=== PATIENT | male | born 1980 | race Caucasian/White ===

== ENCOUNTER 2018-03-03 16:29 | Inpatient (IN) ==
--- NOTE | 2018-03-03 17:40 | P.HP ---
History of Present Illness Service: [facility] Primary Care Physician: UNKNOWN Chief Complaint: Left thigh pain History of Present Illness: Patient is 37-year-old male with no significant past medical history except for chronic feet pain occasionally getting steroid shots who presented to the ER complaining of about 2 weeks on and off pain on the lateral aspect of the left thigh. Denies any direct trauma. Patient continues to go to the gym and do his exercises. Yesterday increasing pain and marked inability to bear weight. CBC was done as an outpatient with a white count of 16,000. Also felt feverish. He went to the [facility] where imaging study shows edema and possible hemorrhage extending from the thigh down to the fascia. Patient was transferred here for further evaluation. This a.m. was noted to have temperature of 101.9. Patient denies any trauma. Denies any easy bruising denies any bleeding tendencies. Patient took ibuprofen as needed for pain Patient admitted for further evaluation and management. With consult orthopedic service. Estimated Total Length of Stay (Days): 3 Plans for Post Hospital Care: Not yet determined Review of Systems Prior to this patient is healthy no headaches no bleeding tendencies no melena no hematochezia no urinary symptoms very active lifestyle. [facility] - History History Provided By: Patient (Patient quit smoking 5 years ago) - Medical History Medical History: Medical History (Last Reviewed 03/08/18 @ 17:58 by CATARINA Aguila) Hematoma of left thigh Hx of back injury - Surgical History Surgical History: Surgical History (Last Reviewed 03/08/18 @ 17:58 by CATARINA Aguila) History of vocal cord polypectomy - Family History Family History: Family History (Last Updated 03/08/18 @ 17:58 by CATARINA Aguila) Other Family history reviewed with no changes - Tobacco History Second Hand Smoke Exposure: No Smoking Status: Former smoker Tobacco Type: Cigarettes - Alcohol History How Often Do You Have a Drink Containing Alcohol: Never - Substance Use History Substance History: No History of Abuse Medications and Allergies Allergies Allergy/AdvReac Type Severity Reaction Status Date / Time adhesive tape Allergy Rash Verified 03/03/18 16:11 Exam Vital signs: Intake & Output 03/02/18 03/03/18 03/03/18 18:59 06:59 18:59 Weight 83.915 kg Other: Weight On Admission 83.915 kg Narrative: Awake alert oriented 3 not in distress Anicteric sclerae pink palpebral conjunctiva Moist oral mucosa Neck supple no nuchal rigidity Chest lungs bilateral breath sounds equal no rales Regular rhythm Abdomen is soft nontender with good bowel sounds Extremities.. Left up left lower extremity swelling of the thigh most marked in the lateral aspect of the thigh with surrounding stress erythema warm to touch erythema extending to the knee area- with some swelling - . Positive pain on touch and tender , range of motion limited by pain No lymphadenopathy Results - Labs CBC & Chem 7: 03/05/18 06:02 03/05/18 06:02 Caprini VTE Risk Assessment Caprin VTE Risk Assessment: No/Low Risk (score <= 1) VTE Pharmacological Exception Reason: Hemorrhage (hematoma- thigh) Caprini Risk Assessment Model: Point Value = 1 Point Value = 2 Point Value = 3 Point Value = 5 Age 41-60 Minor surgery BMI > 25 kg/m2 Swollen legs Varicose veins or History of unexplained or recurrent spontaneous Oral contraceptives or hormone replacement Sepsis (< 1 month) Serious lung disease, including pneumonia (< 1 month) Abnormal pulmonary function Acute myocardial infarction Congestive heart failure (< 1 month) History of inflammatory bowel disease Medical patient at bed rest Age 61-74 Arthroscopic surgery Major open surgery (> 45 min) Laparoscopic surgery (> 45 min) Malignancy Confined to bed (> 72 hours) Immobilizing plaster cast Central venous access Age >= 75 History of VTE Family history of VTE Factor V Leiden Prothrombin [id number] Lupus anticoagulant Anticardiolipin antibodies Elevated serum homocysteine Heparin-induced thrombocytopenia Other congenital or acquired thrombophilia Stroke (< 1 month) Elective arthroplasty Hip, pelvis, or leg fracture Acute spinal cord injury (< 1 month) Prophylaxis Regimen: Total Risk Factor Score Risk Level Prophylaxis Regimen 0-1 Low Early ambulation 2 Moderate Order ONE of the following: *Sequential Compression Device (SCD) *Heparin 5000 units SQ BID 3-4 Higher Order ONE of the following medications: *Heparin 5000 units SQ TID *Enoxaparin/Lovenox 40 mg SQ daily (WT < 150 kg, CrCl > 30 mL/min) *Enoxaparin/Lovenox 30 mg SQ daily (WT < 150 kg, CrCl > 10-29 mL/min) *Enoxaparin/Lovenox 30 mg SQ BID (WT < 150 kg, CrCl > 30 mL/min) AND/OR *Sequential Compression Device (SCD) 5 or more Highest Order ONE of the following medications: *Heparin 5000 units SQ TID (Preferred with Epidurals) *Enoxaparin/Lovenox 40 mg SQ daily (WT < 150 kg, CrCl > 30 mL/min) *Enoxaparin/Lovenox 30 mg SQ daily (WT < 150 kg, CrCl > 10-29 mL/min) *Enoxaparin/Lovenox 30 mg SQ BID (WT < 150 kg, CrCl > 30 mL/min) AND *Sequential Compression Device (SCD) Assessment and Plan - Plan 37-year-old male with no significant past medical history presenting with Left thigh cellulitis with possible infected spontaneous hematoma/hemorrhage into the thigh fascia Leukocytosis- 16,000 -Blood cultures drawn - follow CBC. Orthopedic surgery consulted and will be taking him to surgery this afternoon for exploration/I and D - Send any drainage for fluid studies = recheck CBC in a.m. -Start IV antibiotics post surgery- depending on OR findings
--- NOTE | 2018-03-03 18:56 | P.CONOP ---
[facility] Orthopedics Consult Note - [facility] Consult date: 03/03/18 Chief complaint: Cellulitis, infected hematoma, left thigh Narrative: Patient is 37-year-old male with no significant past medical history who presented to the ER complaining of about 2 weeks on and off pain on the lateral aspect of the left thigh. Patient continues to go to the gym and do his exercises. Yesterday increasing pain and marked difficulty with weightbearing due to pain. CBC was done as an outpatient with a white count of 16,000. Upon presentation, patient had fever of 101.9. Reports subjective fevers at home as well. He reports approximately 1-2 weeks ago he did have a small injury to his left thigh while working out. He thought he had a small muscle strain and has continued to work through it until yesterday when he noticed increasing pain, erythema and difficulty with ambulation. He denies any chills, nausea or vomiting. He denies any illicit drug use. Review of Systems Reports fevers, extremity/thigh pain with swelling and redness. Denies change in vision, throat pain, cough, chest or abdominal pain, change in urination, back pain, numbness or tingling, weakness, rash, anxiety. [facility] - History History Provided By: Patient (Patient quit smoking 5 years ago) - Medical History Medical History: Medical History (Last Reviewed 03/03/18 @ 16:11 by Magda Landaverde) Hx of back injury - Surgical History Surgical History: Surgical History (Last Reviewed 03/03/18 @ 16:11 by Magda Landaverde) History of vocal cord polypectomy - Tobacco History Second Hand Smoke Exposure: No Smoking Status: Former smoker Tobacco Type: Cigarettes - Alcohol History How Often Do You Have a Drink Containing Alcohol: Never - Substance Use History Substance History: No History of Abuse Medications and Allergies Allergies Allergy/AdvReac Type Severity Reaction Status Date / Time adhesive tape Allergy Rash Verified 03/03/18 16:11 Home Medications Medication Instructions Recorded Confirmed Type No Known Home Medications 03/03/18 03/03/18 History Exam Vital signs: Intake & Output 03/02/18 03/03/18 03/03/18 18:59 06:59 18:59 Weight 83.915 kg Other: Weight On Admission 83.915 kg Narrative: Awake, alert, no acute distress Normocephalic Pupils equal No JVD Moist mucous membranes Soft nontender abdomen Nonlabored respirations Regular rate Left lower extremity: Mild to moderate edema of her mid to distal thigh laterally. There is marked erythema around this area. There are no draining wounds or gross signs of abscess. There is significant tenderness about this area. Very slight edema and erythema about the knee. Trace effusion. No significant swelling or pain about the proximal thigh and hip region. Patient demonstrates full passive range of motion at the knee with lateral thigh pain although minimal knee pain. Patient appears neurovascularly intact distally with positive EHL, FHL, dorsiflexion and plantar flexion. Dorsalis pedis pulses palpable. Bilateral upper extremities and right lower extremity: No tenderness to palpation or visible deformities. No gross signs of infection. Full active range of motion and strength throughout. Sensation intact. Brisk cap refill. No rash Normal affect Results - Diagnostic results Imaging: CT left thigh: Fluid collection just deep to the iliotibial band most prominently at the mid to distal aspect of the thigh, suspicious for hematoma possible infection. Assessment and Plan - Assessment and Plan 37-year-old gentleman with left thigh infected hematoma Options of management were discussed with the patient. I did discuss the option of nonoperative management including close observation with IV antibiotics. I did also discuss the option of operative intervention in the form of irrigation and debridement left thigh. Risks, benefits, alternatives were discussed with the patient. Risks of surgery including but not limited to : Persistent infection, persistent thigh pain and/or swelling, possible need for further surgery, fibrosis, neurovascular injury, and other unforeseen complications were all discussed with the patient. At this time he would like to pursue surgical intervention. He has been n.p.o. since earlier this morning. Plan will be for surgery this evening.
[2018-03-03] MEDS ORDERED: Lidocaine PF 1% Inj 5 ML Syringe OTHER ONE (20:00)
[2018-03-03] MEDS ORDERED: Glycopyrrolate Inj 1 MG/5 ML Syringe IV.PUSH ONE (20:00)
[2018-03-03] MEDS ORDERED: Neostigmine Inj 5 MG/5 ML Syringe IV.PUSH ONE (20:00)
[2018-03-03] MEDS ORDERED: Post-op Orders (for Pharmacy) OTHER STA (20:57)
--- NOTE | 2018-03-03 20:57 | P.BOP ---
Date of procedure: 03/03/18 Procedure: Irrigation with excisional debridement left thigh Implants: none Anesthesia: GETA Surgeon: Antonella Perez MD Estimated blood loss (mL): 100 Pathology: other (culture and pathology) Condition: stable Disposition: PACU
[2018-03-03] MEDS ORDERED: Vancomycin Consult Pharmacy 1 EACH OTHER SCH (21:00)
[2018-03-03] MEDS ORDERED: Vancomycin Inj 1,000 MG in Sodium Chlor 0.9% Inj 250 ML IV.SIG SCH (21:00)
[2018-03-03] MEDS ORDERED: *Meperidine Inj 25 MG/ML Vial PERIprocedural Use ONLY ONE (21:19)
[2018-03-03] MEDS ORDERED: Morphine Inj 4 MG/ML Vial ONE (21:26)
[2018-03-03] MEDS ORDERED: fentaNYL Citrate Inj 100 MCG/2 ML Ampul ONE (21:26)
[2018-03-03] MEDS ORDERED: *morphine SULFATE 10 MG/ML PERIprocedure ONLY ONE (21:33)
[2018-03-03] MEDS: Morphine Sulfate Inj 2 MG/ML Vial IV.PUSH PRN (22:49)
[2018-03-03] MEDS: Vancomycin Inj 1,500 MG in Sodium Chlor 0.9% Inj 500 ML IV.SIG SCH (23:22)
[2018-03-04] MEDS: Morphine Sulfate Inj 2 MG/ML Vial IV.PUSH PRN ×3 (03:35→12:44)
[2018-03-04 06:08] LABS: Baso % (Auto) 0.1 % (0.0-2.0); Hematocrit 42.5 % (39.0-51.0); Hemoglobin 14.1 gm/dL (13.0-17.0); Lymph # (Auto) 0.5 th/mm3 (1.0-4.8); Lymph % (Auto) 4.1 % (9.0-44.0); Mean Corpuscular HGB Conc 33.1 % (32.0-36.0); Mean Corpuscular Hemoglobin 31.2 pg (27.0-34.0); Mean Corpuscular Volume 94.3 fL (80.0-100.0); Mean Platelet Volume 8.4 fL (7.0-11.0); Mono # (Auto) 0.6 th/mm3 (0.0-0.9); Mono % (Auto) 4.6 % (0.0-8.0); Neut % (Auto) 91.2 % (16.0-70.0); Platelet Count 252 th/mm3 (150-450); Red Blood Count 4.51 mil/mm3 (4.50-5.90); Red Cell Distribution Width 13.5 % (11.6-17.2); White Blood Count 13.1 th/mm3 (4.0-11.0)
[2018-03-04] MEDS: Vancomycin Inj 1,500 MG in Sodium Chlor 0.9% Inj 500 ML IV.SIG SCH ×2 (09:01→21:00)
--- NOTE | 2018-03-04 10:30 | P.PNIM ---
Subjective Interval history: Mr. aRmires was afebrile with stable VS overnight. Patient reports that he is doing at this time. He has significant L thigh pain which is worse with movement. Patient reports some right foot numbness but thinks it was due to inactivity. No chest pain, shortness of breath, abnormal urination, or abnormal bowel movements. Addendum- patient re-evaluated this afternoon; patient's foot numbness resolved with activity; he reports improvement with pain medications. Physical Exam Vital signs: Vital Signs 03/03/18 19:15 03/03/18 21:15 03/03/18 21:30 Temperature 99.1 F 98.4 F Pulse Rate 82 108 H 91 H Respiratory Rate 18 20 14 Blood Pressure 166/76 H 165/89 H 140/72 Pulse Oximetry 99 94 L 98 03/03/18 22:23 03/03/18 22:25 03/04/18 00:00 Temperature 98.0 F 98.4 F 98.6 F Pulse Rate 91 H 81 71 Respiratory Rate 20 10 L 16 Blood Pressure 132/67 130/61 113/64 Pulse Oximetry 96 94 L 96 03/04/18 04:00 03/04/18 07:53 03/04/18 08:00 Temperature 98 F 98 F Pulse Rate 63 67 Respiratory Rate 16 16 20 Blood Pressure 106/59 L 130/60 Pulse Oximetry 99 100 Intake & Output 03/03/18 03/04/18 03/04/18 18:59 06:59 18:59 Intake Total 2675 / 2675 Output Total 1370 / 1370 800 / 800 Balance 1305 / 1305 -800 / -800 Weight 83.915 kg Intake: IV 615 / 615 Ofirmev Inj 1,000 mg In 100 ml 100 / 100 @ 0 mls/hr IV.SIG .[facility] Rx#:[id number] Vancomycin Inj 1,500 MG In NS 515 / 515 Inj 500 ML @ 250 mls/hr IV.SIG Q12H [facility] Rx#:[id number] Oral 1560 / 1560 Anesthesia Amount 500 / 500 Output: Urine 1300 / 1300 800 / 800 Estimated Blood Loss 50 / 50 Wound Drainage 20 / 20 Left Thigh BENITA Drain 20 / 20 Other: Weight On Admission 83.915 kg Narrative: Gen: No acute distress Skin: No visible lesions; L thigh wrapped. Wound drainage container with serosanguineous fluid HEENT: Normal sclera; EOM grossly I. MMM Chest: CTAB; normal rate. Grossly normal perfusion Resp: CTAB; normal rate Abdomen: Soft, nontender. Normal BS Neuro: Grossly normal CN. Grossly normal peripheral motor/sensory function Extremities: Grossly normal motor function; ROM of LLE not fully assessed due to pain. L thigh wrapped; ~20 ml serosanguineous fluid in drainage container. range of motion limited by pain Results - Labs CBC & Chem 7: 03/04/18 05:03 03/04/18 05:03 Laboratory Results - last 24 hr 03/04/18 03/04/18 05:03 05:03 WBC 13.1 H RBC 4.51 Hgb 14.1 Hct 42.5 MCV 94.3 D MCH 31.2 MCHC 33.1 RDW 13.5 Plt Count 252 MPV 8.4 Neut % (Auto) 91.2 H Lymph % (Auto) 4.1 L [place] % (Auto) 4.6 Eos % (Auto) 0.0 Baso % (Auto) 0.1 Neut # (Auto) 12.0 H Lymph # (Auto) 0.5 L [place] # (Auto) 0.6 Eos # (Auto) 0.0 Baso # (Auto) 0.0 WBC Differential . Differential Comment Auto diff final Creatinine 1.20 Estimated GFR 69 L Microbiology 03/03/18 20:29 Wound - Leg Fungal Smear - Final No fungal elements seen 03/03/18 20:29 Wound - Leg Gram Stain - Final Assessment and Plan - Assessment (1) Hematoma Code(s): T14.8XXA - Other injury of unspecified body region, initial encounter Status: Acute (2) Fever Code(s): R50.9 - Fever, unspecified Status: Acute (3) Leukocytosis Code(s): D72.829 - Elevated white blood cell count, unspecified Status: Acute - Plan Mr. Ramires is a 37-year-old male with no significant past medical history with: L thigh infectious hematoma Impression: POD 1 I&D of L thigh hematoma. Recent leukocytosis and fever -Wound culture/ GS- pending Labs: WBC 18 03/02-> 13.1 03/04 -Orthopedic surgery consulted -I&D of L thigh performed 03/03; drainage vac in place -Continue IV vancomycin -Monitor cultures -Weight bearing as tolerated; ROM as tolerated DVT PPX -Bilateral SCD's Code Status: Full code Discharge Planning: Pending Orthopedic surgery recommendations
[2018-03-04] MEDS: oxyCODONE/Acetaminophen 10/325 Tablet PO PRN ×3 (11:17→23:18)
[2018-03-04] MEDS: Morphine Inj 4 MG/ML Vial IV.PUSH PRN ×3 (15:16→20:59)
--- NOTE | 2018-03-04 16:29 | P.OP ---
Date of procedure: 03/03/18 Procedure: Irrigation and excisional debridement left thigh infected seroma Implants: none Anesthesia: GETA Surgeon: Antonella Perez MD Estimated blood loss (mL): 100 Pathology: other (cultures and pathology) Operation and Findings: Indications for procedure: 37-year-old gentleman with small left thigh muscle injury approximately 1-2 weeks ago with mild thigh pain and swelling. Over the last couple of days, patient noticed increasing pain, difficulty with ambulation , increasing erythema, and new onset fevers. Patient presented to the emergency department with a temperature of 101.9, elevated WBC, and CT with fluid collection in the left thigh deep to the IT band. Options of management including continued nonoperative management with IV antibiotics and observation versus operative intervention in form of irrigation and debridement were discussed with the patient. At this time he wished to proceed with surgical intervention. Description of procedure: Patient was brought back to the operating room placed supine on the operating room table with all bony processes well padded. General anesthesia then ensued. A timeout was performed to verify the correct patient, site, side and procedure to be performed. Preoperative antibiotics were held in order to obtain intraoperative cultures. An approximately 5 inch incision was then made over the lateral aspect of the mid to distal thigh with sharp dissection through the skin and subcutaneous tissue. The IT band was then incised in a longitudinal fashion and immediately straw-colored fluid was expressed. This was cultured. Deep to the IT band, there appeared to be significant amount of seroma-like fluid along with clearly defined encapsulated tissue. This capsular tissue was sent to pathology. This was excisionally debrided with scalpel, rongeurs and curettes. The tissue at this time appeared healthy without any clear signs of infection. All muscle appeared viable. There was no gross purulence identified signs of hematoma. A BENITA drain was placed deep and the IT band closed with running PDS suture. The subcutaneous tissue was then closed with PDS sutures and the skin closed with nylon. Sterile dressings were then applied. Patient was awoken from general anesthesia without complication. Disposition: Patient can be weightbearing as tolerated and range of motion as tolerated to the left lower extremity. I will follow cultures and pathology.
[2018-03-04] MEDS: Senna/Docusate Sodium 8.6/50 MG Tablet PO SCH (20:59)
[2018-03-05] MEDS: Morphine Inj 4 MG/ML Vial IV.PUSH PRN ×4 (01:03→12:22)
[2018-03-05 06:30] LABS: Baso % (Auto) 0.4 % (0.0-2.0); Eos # (Auto) 0.2 th/mm3 (0.0-0.4); Eos % (Auto) 2.5 % (0.0-4.0); Hematocrit 40.7 % (39.0-51.0); Hemoglobin 13.8 gm/dL (13.0-17.0); Lymph # (Auto) 1.4 th/mm3 (1.0-4.8); Lymph % (Auto) 15.3 % (9.0-44.0); Mean Corpuscular HGB Conc 33.9 % (32.0-36.0); Mean Corpuscular Hemoglobin 31.8 pg (27.0-34.0); Mean Corpuscular Volume 93.8 fL (80.0-100.0); Mean Platelet Volume 8.1 fL (7.0-11.0); Mono # (Auto) 0.9 th/mm3 (0.0-0.9); Mono % (Auto) 10.1 % (0.0-8.0); Neut # (Auto) 6.5 th/mm3 (1.8-7.7); Neut % (Auto) 71.7 % (16.0-70.0); Platelet Count 243 th/mm3 (150-450); Red Blood Count 4.34 mil/mm3 (4.50-5.90); Red Cell Distribution Width 13.4 % (11.6-17.2); White Blood Count 9.1 th/mm3 (4.0-11.0)
[2018-03-05] MEDS: oxyCODONE/Acetaminophen 10/325 Tablet PO PRN ×2 (06:36→12:25)
[2018-03-05 06:53] LABS: Calcium 8.2 mg/dL (8.5-10.1); Carbon Dioxide 31.3 meq/L (21.0-32.0); Potassium 3.9 meq/L (3.5-5.1)
[2018-03-05] MEDS: Senna/Docusate Sodium 8.6/50 MG Tablet PO SCH (08:09)
--- NOTE | 2018-03-05 09:35 | P.PNOP ---
Subjective Interval history: Patient reports his pain is relatively well controlled. He does still have some discomfort with ambulation although is mobilizing with a walker. Physical Exam Vital signs: Vital Signs 03/04/18 11:35 03/04/18 12:00 03/04/18 12:44 Temperature 98.1 F Pulse Rate 66 Respiratory Rate 16 20 16 Blood Pressure 137/70 Pulse Oximetry 98 03/04/18 15:26 03/04/18 16:00 03/04/18 17:28 Temperature 98.6 F Pulse Rate 71 Respiratory Rate 17 20 16 Blood Pressure 138/69 Pulse Oximetry 98 03/04/18 18:07 03/04/18 20:00 03/05/18 00:00 Temperature 98.3 F 98.1 F Pulse Rate 69 60 Respiratory Rate 16 18 18 Blood Pressure 115/64 115/69 Pulse Oximetry 97 100 03/05/18 04:00 03/05/18 07:56 03/05/18 07:57 Temperature 97.9 F Pulse Rate 52 L Respiratory Rate 18 16 16 Blood Pressure 119/70 Pulse Oximetry 99 03/05/18 08:00 Temperature 98 F Pulse Rate 61 Respiratory Rate 20 Blood Pressure 132/83 Pulse Oximetry 99 Intake & Output 03/04/18 03/05/18 03/05/18 18:59 06:59 18:59 Intake Total 515 / 515 1475 / 1475 Output Total 890 / 890 775 / 775 Balance -375 / -375 700 / 700 Intake: IV 515 / 515 515 / 515 Vancomycin Inj 1,500 MG In NS 515 / 515 515 / 515 Inj 500 ML @ 250 mls/hr IV.SIG Q12H [facility] Rx#:[id number] Oral 960 / 960 Output: Urine 880 / 880 750 / 750 Wound Drainage Left Thigh BENITA Drain Other: # Voids 3 Narrative: Awake, alert, no acute distress Ambulating with walker to bathroom currently. Left lower extremity: Dressing in place over thigh. Drain has been removed. Patient is neurovascularly intact distally. Erythema appears significantly improved. Negative Homans. Brisk cap refill Results - Labs CBC & Chem 7: 03/05/18 06:02 03/05/18 06:02 Laboratory Results - last 24 hr 03/05/18 03/05/18 06:02 06:02 WBC 9.1 RBC 4.34 L Hgb 13.8 Hct 40.7 MCV 93.8 MCH 31.8 MCHC 33.9 RDW 13.4 Plt Count 243 MPV 8.1 Neut % (Auto) 71.7 H Lymph % (Auto) 15.3 [place] % (Auto) 10.1 H Eos % (Auto) 2.5 Baso % (Auto) 0.4 Neut # (Auto) 6.5 Lymph # (Auto) 1.4 [place] # (Auto) 0.9 Eos # (Auto) 0.2 Baso # (Auto) 0.0 WBC Differential . Differential Comment Auto diff final Sodium 140 Potassium 3.9 Chloride 105 Carbon Dioxide 31.3 Anion Gap 4 L BUN 17 Creatinine 1.24 Estimated GFR 66 L Random Glucose 105 Calcium 8.2 L Microbiology 03/03/18 20:29 Wound - Leg Gram Stain - Final 03/03/18 20:29 Wound - Leg Wound Culture - Preliminary No growth. 03/03/18 20:29 Wound - Leg Fungal Smear - Final No fungal elements seen Assessment and Plan - Assessment and Plan 37-year-old male, POD#2 s/p I&D L thigh 1. Weightbearing as tolerated and range of motion as tolerated left thigh 2. Drain can be removed and dressing change today. Xeroform, 4 x 4's and Dexter wrap to be reapplied dressing can be changed on a daily basis as needed. 3. Intraoperative cultures remained negative. Will continue to follow. Patient can be discharged on 10 days of oral antibiotics at this time 4. Patient can follow up in my office in 2 weeks.
[2018-03-05] MEDS ORDERED: Pharmacy Ordered Lab Info OTHER ONE (09:45)
[2018-03-05] MEDS: Vancomycin Inj 1,500 MG in Sodium Chlor 0.9% Inj 500 ML IV.SIG SCH (10:00)
[2018-03-05 10:09] VITALS: RESP 16
--- NOTE | 2018-03-05 12:46 | P.PNIM ---
Subjective Interval history: Mr. Ramires was afebrile with stable VS overnight. 20ml serosanguineous drainage overnight. Patient reports that he has continued pain in his left thigh. He otherwise has been doing well without fevers, chest pain, shortness of breath, or abnormal urination/BM. Patient has some concerns about his work/standing so requests work note. Drain removed this morning by nursing staff. Patient agreeable to discharge home with walker and follow-up with Dr. Perez in 2 weeks after 10 days antibiotics. Physical Exam Vital signs: Vital Signs 03/04/18 15:26 03/04/18 16:00 03/04/18 17:28 Temperature 98.6 F Pulse Rate 71 Respiratory Rate 17 20 16 Blood Pressure 138/69 Pulse Oximetry 98 03/04/18 18:07 03/04/18 20:00 03/05/18 00:00 Temperature 98.3 F 98.1 F Pulse Rate 69 60 Respiratory Rate 16 18 18 Blood Pressure 115/64 115/69 Pulse Oximetry 97 100 03/05/18 04:00 03/05/18 07:56 03/05/18 07:57 Temperature 97.9 F Pulse Rate 52 L Respiratory Rate 18 16 16 Blood Pressure 119/70 Pulse Oximetry 99 03/05/18 08:00 03/05/18 10:09 03/05/18 12:26 Temperature 98 F Pulse Rate 61 Respiratory Rate 20 16 16 Blood Pressure 132/83 Pulse Oximetry 99 Intake & Output 03/04/18 03/05/18 03/05/18 18:59 06:59 18:59 Intake Total 515 / 515 1475 / 1475 515 / 515 Output Total 890 / 890 775 / 775 Balance -375 / -375 700 / 700 495 / 495 Intake: IV 515 / 515 515 / 515 515 / 515 Vancomycin Inj 1,500 MG In NS 515 / 515 515 / 515 515 / 515 Inj 500 ML @ 250 mls/hr IV.SIG Q12H [facility] Rx#:[id number] Oral 960 / 960 Output: Urine 880 / 880 750 / 750 Wound Drainage Left Thigh BENITA Drain Other: # Voids 3 Narrative: Gen: No acute distress Skin: No visible lesions; L thigh wrapped. HEENT: Normal sclera; EOM grossly I. MMM Chest: CTAB; normal rate. Grossly normal perfusion Resp: CTAB; normal rate Abdomen: Soft, nontender. Normal BS Neuro: Grossly normal CN. Grossly normal peripheral motor/sensory function in bilateral distal lower extremities Extremities: Grossly normal motor function; L thigh wrapped. seen ambulating; range of motion limited by pain. No calf pain/asymmetry Results - Labs CBC & Chem 7: 03/05/18 06:02 03/05/18 06:02 Laboratory Results - last 24 hr 03/05/18 03/05/18 03/05/18 06:02 06:02 09:50 WBC 9.1 RBC 4.34 L Hgb 13.8 Hct 40.7 MCV 93.8 MCH 31.8 MCHC 33.9 RDW 13.4 Plt Count 243 MPV 8.1 Neut % (Auto) 71.7 H Lymph % (Auto) 15.3 [place] % (Auto) 10.1 H Eos % (Auto) 2.5 Baso % (Auto) 0.4 Neut # (Auto) 6.5 Lymph # (Auto) 1.4 [place] # (Auto) 0.9 Eos # (Auto) 0.2 Baso # (Auto) 0.0 WBC Differential . Differential Comment Auto diff final Sodium 140 Potassium 3.9 Chloride 105 Carbon Dioxide 31.3 Anion Gap 4 L BUN 17 Creatinine 1.24 Estimated GFR 66 L Random Glucose 105 Calcium 8.2 L Vancomycin Trough 5.2 Microbiology 03/03/18 20:29 Wound - Leg Gram Stain - Final 03/03/18 20:29 Wound - Leg Wound Culture - Preliminary No growth in 48 hours 03/03/18 20:29 Wound - Leg Fungal Smear - Final No fungal elements seen Assessment and Plan - Assessment (1) Hematoma Code(s): T14.8XXA - Other injury of unspecified body region, initial encounter Status: Acute (2) Fever Code(s): R50.9 - Fever, unspecified Status: Acute (3) Leukocytosis Code(s): D72.829 - Elevated white blood cell count, unspecified Status: Acute - Plan Mr. Ramires is a 37-year-old male with no significant past medical history with: L thigh seroma Impression: POD 2 I&D of L thigh encapsulated seroma; Recent leukocytosis and fever suggested infectious etiology but surgery revealed likely subacute noninfectious process -Wound culture/ GS- pending; negative to date Labs: WBC 18 03/02-> 13.1 03/04 -> 9.1 today -Orthopedic surgery consulted -I&D of L thigh performed 03/03 -drainage vac removed today -Will plan for discharge on oral Keflex x10 days; infectious etiology less likely -ROM and weight bearing astolerated; use wheeled walker -Xeroform, 4 x 4's and Dexter wrap - daily changes as needed -f/u with Dr. Perez in 2 weeks -Percocet, Motrin PRN for pain control DVT PPX -Bilateral SCD's Discharge Planning: Discharge home today; f/u with Dr. Perez in 2 weeks
[2018-03-05 13:23] VITALS: BP 146/79; PULSE 66; TEMP 98.2; O2SAT 98
[2018-03-05] MEDS ORDERED: Vancomycin Inj 1,750 MG in Sodium Chlor 0.9% Inj 500 ML IV.SIG SCH (22:00)
[2018-03-07] MEDS ORDERED: Pharmacy Ordered Lab Info OTHER ONE (09:45)
--- NOTE | 2018-03-09 23:56 | P.DS ---
Date of admission: 03/04/18 13:52 Primary care physician: UNKNOWN Brief History from admission: Patient is 37-year-old male with no significant past medical history except for chronic feet pain occasionally getting steroid shots who presented to the ER complaining of about 2 weeks on and off pain on the lateral aspect of the left thigh. Denies any direct trauma. Patient continues to go to the gym and do his exercises. Yesterday increasing pain and marked inability to bear weight. CBC was done as an outpatient with a white count of 16,000. Also felt feverish. [facility] where imaging study shows edema and possible hemorrhage extending from the thigh down to the fascia. Patient was transferred here for further evaluation. This a.m. was noted to have temperature of 101.9. Patient denies any trauma. Denies any easy bruising denies any bleeding tendencies. Patient took ibuprofen as needed for pain Patient admitted for further evaluation and management. With consult orthopedic service. Patient update on day of discharge: Mr. Ramires was afebrile with stable VS overnight. 20ml serosanguineous drainage overnight. Patient reports that he has continued pain in his left thigh. He otherwise has been doing well without fevers, chest pain, shortness of breath, or abnormal urination/BM. Patient has some concerns about his work/standing so requests work note. Drain removed this morning by nursing staff. Patient agreeable to discharge home with walker and follow-up with Dr. Perez in 2 weeks after 10 days antibiotics. DS: Diagnosis - Discharge Diagnosis (1) Hematoma Status: Acute (2) Fever Status: Acute (3) Leukocytosis Status: Acute DS: Medications - Discharge Medications Prescriptions: cephalexin [Keflex] 500 mg PO TID 10 Days #30 cap oxycodone-acetaminophen 1 tab PO Q6H PRN #12 tab PRN Reason: Acute Pain DS: Summary Hospital Course: Mr. Ramires is 37-year-old male with no significant past medical history w/ prior use of steroid injections presented to [facility] complaining of 2 weeks of intermittent L thigh pain. Recent T 101.9F. Patient had outpatient CBC showing WBC >15K; CT imaging 03/02 showed suspected subacute hemorrhage down lateral L thigh along inner aspect of tensor fascia paco with subcutaneous edema. Within the lateral thigh there is some fluid attenuation; presumably hemorrhage and multiple locules of fat; underlying mass cannot be excluded. Patient underwent I&D of lateral thigh 03/03 by Orthopedic surgery; cultures/ gram stain obtained. Patient subsequently had improved leukocytosis. Patient underwent PT and wound dressing care while hospitalized. Drain removed 03/05 and patient was discharged with Orthopedic surgery and plan to f/u with Ortho in 2 weeks. 03/08- Received notification of acid fast bacilli in leg culture; patient contacted to return to ED for further treatment - Time Spent with Patient Total time spent providing and/or coordinating discharge services: Less than 30 minutes - Quality: VTE Deep Vein Thrombosis/Pulmonary Embolism Present on Admission: No Exam Vital signs: Initial Documented Vital Signs Temperature 99.1 F 03/03/18 19:15 Pulse Rate 82 03/03/18 19:15 Respiratory Rate 18 03/03/18 19:15 Blood Pressure 166/76 H 03/03/18 19:15 Pulse Oximetry 99 03/03/18 19:15 Last Documented Vital Signs Temperature 98.2 F 03/05/18 12:00 Pulse Rate 66 03/05/18 12:00 Respiratory Rate 16 03/05/18 13:34 Blood Pressure 146/79 H 03/05/18 12:00 Pulse Oximetry 98 03/05/18 12:00 Narrative: Gen: No acute distress Skin: No visible lesions; L thigh wrapped. HEENT: Normal sclera; EOM grossly I. MMM Chest: CTAB; normal rate. Grossly normal perfusion Resp: CTAB; normal rate Abdomen: Soft, nontender. Normal BS Neuro: Grossly normal CN. Grossly normal peripheral motor/sensory function in bilateral distal lower extremities Extremities: Grossly normal motor function; L thigh wrapped. seen ambulating; range of motion limited by pain. No calf pain/asymmetry Results Procedures completed during hospitalization: 03/03 - I& D of L thigh Completed studies during hospitalization: Pending at discharge 03/03/18 07:33 Surgical [PTH] Routine Labs on day of discharge: Preliminary micro results at discharge 03/03/18 20:29 Wound Culture - Preliminary Wound - Leg Acid Fast Organism Discharge Plan - Discharge Disposition Patient Disposition: 01 Discharge Home - Discharge Condition Condition: Stable - Discharge Order Discharge Orders: Discharge Order (Routine); Ordered 03/05/18 Ordered By: Blake Mendes - Discharge Details Anticipated Discharge Date: 03/05/18 Discharge Comment: Wound care supplies if possible (Xeroform, 4x4, YULIA) - Physicians Team Primary Care Provider: UNKNOWN, Attending Provider: Blake Mendes - Rxs /Orders / Referrals /Forms Prescriptions: New cephalexin [Keflex] 250 mg Capsule 500 mg PO TID 10 Days Qty: 30 RF: 0 oxycodone-acetaminophen 10-325 mg Tablet 1 tab PO Q6H PRN (Reason: Acute Pain) Qty: 12 RF: 0 Ambulatory Orders / Order Sets / DME: Walker With Front Wheels (1 each) (Routine) Location: Determined by Patient Ordered By: Blake Mendes Referrals: Antonella Perez MD [Physician] - See Instructions (Please follow-up with Dr. Perez in 2 weeks CALL 'S OFFICE & BEING THAT PATIENT HAS [facility] [employer] INSURANCE. PATIENT NEEDS AUTHORIZATION FIRST FROM [place] TO BE SEEN AT 'S OFFICE) UNKNOWN, [Primary Care Provider] - See Instructions (CALL [place] [facility] FOR APPT WITH PCP) Forms: Work Release/Restrictions - Discharge Instructions Patient Printed Instructions: Cephalexin (By mouth), Oxycodone/Acetaminophen ( By mouth), Acute Wound Care (DC), Incision and Drainage (DC)
== END 2018-03-05 14:22 | disposition home or self-care (01) ==
LOC: HOR 16:29 → HSDI 16:29 → N05 22:17
PROVIDERS: ADMIT Family Medicine; ATTEND Family Medicine

== ENCOUNTER 2018-03-08 11:48 | Inpatient (IN) ==
--- NOTE | 2018-03-08 12:32 | ED ---
HPI General Chief Complaint: Recheck/Abnormal Lab/Rx Stated Complaint: Doctor sent medical Time Seen by Provider: 03/08/18 12:10 Source: patient and old records reviewed Mode of arrival: ambulatory Limitations: no limitations History of Present Illness HPI narrative: 37-year-old male presents to the emergency department for evaluation of left thigh wound. Patient was called by Dr. Mendes today wand was instructed to return due to the wound growing acid-fast organism, final report. The patient was seen on March 02 and discharged and returned on March 03 with fevers. He was admitted at that time. He had a CT scan of the femur which showed in patient with history of trauma to thigh there is a presumed subacute hemorrhage extending down the entire lateral left thigh along the inner aspect of the tensor fascia paco with additional subcutaneous edema. Within the lateral thigh musculature there is some fluid attenuation, presumably hemorrhage and multiple locules of fat. Etiology of locules of fat is unclear. Cannot exclude an underlying mass. Imaging follow-up recommended started with left thigh pain working out. Patient had the area opened up by orthopedic surgeon, Dr. Perez. He was discharged on Keflex on March 05, 2018. He states that his leg is still swollen, but overall the erythema has slightly decreased. He still reports significant pain to the left thigh. He denies taking other medications other than Keflex and oxycodone for pain. He reports chills. Moderate severity. complaint: wound re-check Initial visit (ago): week(s) Initial visit for: cellulitis and other (hematoma) Returns today for: wound recheck and called because of abnormal lab/test Description of abnormal result: Patient was called due to wound culture growing acid-fast organism Symptoms since prior visit: improved Context: called for abnormal lab result Associated symptoms: chills Treatments prior to arrival: given antibiotics on and given pain meds on Related Data Previous Rx's Medication Instructions Recorded cephalexin [Keflex] 500 mg PO TID 10 Days #30 cap 03/05/18 oxycodone-acetaminophen 1 tab PO Q6H PRN #12 tab 03/05/18 Allergies Allergy/AdvReac Type Severity Reaction Status Date / Time adhesive tape Allergy Rash Verified 03/03/18 16:11 Review of Systems ROS: all other systems reviewed are negative PMFSH Social History Social History Substance History: No History of Abuse Second Hand Smoke Exposure: No Smoking Status: Former smoker Tobacco Type: Cigarettes How Often Do You Have a Drink Containing Alcohol: Monthly or less Recent Travel in [place] within the Last 8 Weeks: No Recent Out of Country Travel within the Last 8 Weeks: No Immunization History Tetanus Immunization: Unsure Hx Influenza Vaccine This Season: No Exam Narrative Exam Narrative: GENERAL: Well-nourished, well-developed male patient, afebrile. SKIN: Focused skin assessment warm/dry. Patient has swelling and erythema to left thigh with approximately 5 inch incision with sutures intact without drainage. HEAD: Normocephalic. Atraumatic. EYES: No scleral icterus. No injection or drainage. NECK: Supple, trachea midline. No JVD or lymphadenopathy. CARDIOVASCULAR: Regular rate and rhythm without murmurs, gallops, or rubs. Left pedal pulse is 2+ RESPIRATORY: Breath sounds equal bilaterally. No accessory muscle use. Lung sounds are clear to auscultation GASTROINTESTINAL: Abdomen soft, non-tender, nondistended. MUSCULOSKELETAL: No cyanosis. BACK: No obvious deformity. Course Initial Documented Vital Signs Temperature 97.8 F 03/08/18 11:56 Pulse Rate 92 H 03/08/18 11:56 Respiratory Rate 14 03/08/18 11:56 Blood Pressure 154/77 H 03/08/18 11:56 Pulse Oximetry 100 03/08/18 11:56 Last Documented Vital Signs Temperature 97.8 F 03/08/18 11:56 Pulse Rate 92 H 03/08/18 11:56 Respiratory Rate 14 03/08/18 11:56 Blood Pressure 154/77 H 03/08/18 11:56 Pulse Oximetry 100 03/08/18 11:56 Medical Decision Making [place] Narrative Medical decision making narrative: 37-year-old male presents to the emergency department for evaluation of left thigh wound, instructed to call back due to the wound culture showing acid-fast organism. IV access obtained. CBC, CMP, lactic acid ordered and pending. After labs are back, infectious disease will be consulted. CBC shows WBC of 9.8. CMP shows no acute abnormality. Lactic acid is 1.5. I spoke to Dr. Peña, infectious disease. He recommends MRI with and without contrast. I will then call him back with these results. I spoke to the patient further who states that he did inject his left thigh with dexamethasone approximately 2 weeks, right before the symptoms started. He states that he gets it on line and after he does a race if he is sore, he will inject his muscle. He did this right before his symptoms started. I will relay this to Dr. Peña when I speak to him with the MRI results. MRI shows There is a large enhancing edematous collection within the vastus lateralis muscle with very impressive surrounding soft tissue edema. There is also an elongated fluid collection deep to the fascia in the peripheral aspect of the mass, presumed abscess. What is unusual are areas of macroscopic fat within the collection, can be seen in patients with a resolving hematoma or possibly a hemorrhagic hemangioma. Similar to the recent CT scan. I spoke to Dr. Sandoval, orthopedist, who states he was only there for antibiotic management and she would not want to drain it again. I then spoke to Dr. Peña, infectious disease, and states that it does need to be drained as they need a new sample of fluid. He does not want to the patient to be started on IV antibiotics until the new sample is drawn. Hospitalist is paged for admission. Dr. Abebe accepted admission. Medical Screen Exam Complete: Yes Emergency Medical Condition: Yes Differential Diagnosis Differential Diagnosis: cellulitis vs. abscess vs. sepsis vs. wound recheck Medical Records Medical records reviewed: Yes I reviewed the patient's medical records. Lab Data Result diagrams: 03/08/18 12:38 03/08/18 12:38 Lab Results 03/08/18 03/08/18 03/08/18 Range/Units 12:38 12:38 12:38 WBC 9.8 (4.0-11.0) th/mm3 RBC 4.65 (4.50-5.90) mil/mm3 Hgb 14.8 (13.0-17.0) gm/dL Hct 43.3 (39.0-51.0) % MCV 93.0 (80.0-100.0) fL MCH 31.8 (27.0-34.0) pg MCHC 34.1 (32.0-36.0) % RDW 13.4 (11.6-17.2) % Plt Count 360 D (150-450) th/mm3 MPV 7.8 (7.0-11.0) fL Prelim Diff (Auto) Slide review pending Neut % (Auto) 75.9 H (16.0-70.0) % Lymph % (Auto) 12.3 (9.0-44.0) % [place] % (Auto) 7.4 (0.0-8.0) % Eos % (Auto) 3.7 (0.0-4.0) % Baso % (Auto) 0.7 (0.0-2.0) % Neut # (Auto) 7.4 (1.8-7.7) th/mm3 Lymph # (Auto) 1.2 (1.0-4.8) th/mm3 [place] # (Auto) 0.7 (0.0-0.9) th/mm3 Eos # (Auto) 0.4 (0.0-0.4) th/mm3 Baso # (Auto) 0.1 (0.0-0.2) th/mm3 WBC Differential Manual diff final Seg Neuts % (Manual) 84 H (16-70) % Lymphocytes % (Manual) 7 L (9-44) % Monocytes % (Manual) 6 (0-8) % Eosinophils % (Manual) 2 (0-4) % Metamyelocytes % (Man) 1 (0-1) % Abs Neuts (Manual) 8.3 H (1.8-7.7) th/mm3 Differential Comment . Platelet Estimate Normal (Normal) Platelet Morphology Normal (Normal) Sodium 137 (136-145) meq/L Potassium 4.1 (3.5-5.1) meq/L Chloride 102 (98-107) meq/L Carbon Dioxide 29.1 (21.0-32.0) meq/L Anion Gap 6 (5-15) meq/L BUN 19 H (7-18) mg/dL Creatinine 1.13 (0.60-1.30) mg/dL Estimated GFR 74 L (>89) mL/min Random Glucose 91 (74-106) mg/dL Lactic Acid 1.5 (0.4-2.0) mmol/L Calcium 8.7 (8.5-10.1) mg/dL Total Bilirubin 0.4 (0.2-1.0) mg/dL AST 29 (15-37) U/L ALT 30 (12-78) U/L Alkaline Phosphatase 56 (45-117) U/L Total Protein 7.4 (6.4-8.2) g/dL Albumin 3.0 L (3.4-5.0) g/dL Imaging Data Radiologist's impression: Femur MRI 03/08/18 14:00 CONCLUSION: 1. There is a large enhancing edematous collection within the vastus lateralis muscle with very impressive surrounding soft tissue edema. There is also an elongated fluid collection deep to the fascia in the peripheral aspect of the mass, presumed abscess. What is unusual are areas of macroscopic fat within the collection, can be seen in patients with a resolving hematoma or possibly a hemorrhagic hemangioma. Similar to the recent CT scan. Discharge Plan Discharge Disposition Patient Disposition: 30 Still Patient Discharge Details Diagnosis: Abscess of left thigh, Cellulitis Physicians Team ED Provider: [facility] ED Midlevel Provider: Shelby Child Primary Care Provider: UNKNOWN, Rxs /Orders / Referrals /Forms Prescriptions: No Action oxycodone-acetaminophen 10-325 mg Tablet 1 tab PO Q6H PRN (Reason: Acute Pain) Qty: 12 RF: 0 cephalexin [Keflex] 250 mg Capsule 500 mg PO TID 10 Days Qty: 30 RF: 0 Status ED Status: Admitted Patient
[2018-03-08] MEDS ORDERED: Ibuprofen 600 MG Tablet PO ONE (12:51)
[2018-03-08 13:08] LABS: Baso # (Auto) 0.1 th/mm3 (0.0-0.2); Baso % (Auto) 0.7 % (0.0-2.0); Eos # (Auto) 0.4 th/mm3 (0.0-0.4); Eos % (Auto) 3.7 % (0.0-4.0); Hematocrit 43.3 % (39.0-51.0); Hemoglobin 14.8 gm/dL (13.0-17.0); Lymph # (Auto) 1.2 th/mm3 (1.0-4.8); Lymph % (Auto) 12.3 % (9.0-44.0); Mean Corpuscular HGB Conc 34.1 % (32.0-36.0); Mean Corpuscular Hemoglobin 31.8 pg (27.0-34.0); Mean Platelet Volume 7.8 fL (7.0-11.0); Mono # (Auto) 0.7 th/mm3 (0.0-0.9); Mono % (Auto) 7.4 % (0.0-8.0); Neut # (Auto) 7.4 th/mm3 (1.8-7.7); Neut % (Auto) 75.9 % (16.0-70.0); Platelet Count 360 th/mm3 (150-450); Red Blood Count 4.65 mil/mm3 (4.50-5.90); Red Cell Distribution Width 13.4 % (11.6-17.2); White Blood Count 9.8 th/mm3 (4.0-11.0)
[2018-03-08 13:30] LABS: Alanine Aminotransferase 30 U/L (12-78)
[2018-03-08 13:32] LABS: Alkaline Phosphatase 56 U/L (45-117); Total Protein 7.4 g/dL (6.4-8.2)
[2018-03-08 13:38] LABS: Anion Gap 6 meq/L (5-15); Aspartate Aminotransferase 29 U/L (15-37); Blood Urea Nitrogen 19 mg/dL (7-18); Calcium 8.7 mg/dL (8.5-10.1); Carbon Dioxide 29.1 meq/L (21.0-32.0); Chloride 102 meq/L (98-107); Glomerular Filtration Rate 74 mL/min (>89); Glucose,Random 91 mg/dL (74-106); Sodium 137 meq/L (136-145)
[2018-03-08 13:40] LABS: Potassium 4.1 meq/L (3.5-5.1)
[2018-03-08 13:57] LABS: Eosinophils 2 % (0-4); Lymphocytes 7 % (9-44); Metamyelocytes 1 % (0-1); Monocytes 6 % (0-8); Platelet Estimate Normal (Normal); Platelet Morphology Normal (Normal)
[2018-03-08] MEDS ORDERED: Gadobutrol PF 10 MMOL/10 ML Vial (for RAD) IV.SIG ONE (15:41)
--- NOTE | 2018-03-08 16:02 | MR ---
EXAM DATE: 03/08/2018 3:48 PM EDT AGE/SEX: 37 years / Male INDICATIONS: Thigh abscess mass CLINICAL DATA: This is the patient's initial encounter. Patient reports that signs and symptoms have been present for 3 days and indicates a pain score of 4/10. MEDICAL/SURGICAL HISTORY: None. . I&D left thigh. COMPARISON: [facility], CT FEMUR LEFT W CONTRAST, 03/02/2018. . TECHNIQUE: Multiplanar, multisequence MRI examination was performed without and with ml Gadavist (ga dobutrol) contrast as single exam dose. FINDINGS: MRI of the left thigh again demonstrates a elongated mass primarily in the vastus lateralis muscle. I ts a mixture of edema areas of lower signal and clearly some areas of macroscopic fat. Uncertain whet her an artifact related to a intramuscular hematoma. The edematous muscle measures 9.8 x 4.2 cm acros s. It extends over 23 cm in height. Superficial to the muscular edema is a fluid collection measuring 4.8 x 1.0 cm across extending from the 23 cm in height. I believe the fluid is deep to the muscular fascia Contrast episode some nodular areas of enhancement in the central aspect of the vastus lateralis. The re is peripheral enhancement around the fluid collection. Fluid collection begins just posterior to t he incision and parts are cephalad to the incision. The edema and enhancement does extend into the fascia between the vastus intermedius and vastus later julio muscles. A 5 mm segment of the fascia may be involved. CONCLUSION: 1. There is a large enhancing edematous collection within the vastus lateralis muscle with very impr essive surrounding soft tissue edema. There is also an elongated fluid collection deep to the fascia in the peripheral aspect of the mass, presumed abscess. What is unusual are areas of macroscopic fat within the collection, can be seen in patients with a resolving hematoma or possibly a hemorrhagic h emangioma. Similar to the recent CT scan. Electronically signed by: Duke Cortez MD 03/08/2018 4:01 PM EDT
[2018-03-08] MEDS ORDERED: Acetaminophen 325 MG Tablet PO PRN (17:44)
[2018-03-08] MEDS ORDERED: oxyCODONE/Acetaminophen 10/325 Tablet PO PRN (17:51)
--- NOTE | 2018-03-08 18:05 | P.HP ---
History of Present Illness Service: [facility] Primary Care Physician: UNKNOWN Chief Complaint: Abnormal labs, Left thigh pain, chills History of Present Illness: This is a 37-year-old male who is generally in good health, history of chronic feet pain. Patient presents to the emergency room for abnormal labs. Patient indicates that approximately 2 weeks ago he suffered an injury to his left thigh after he did a "squat and sprint". Because of continued pain, he injected dexamethasone on the left side which he had done before. On 03/02/2018 he started to develop fever and was seen in the emergency room and discharged. He returned back on the with recurrent fevers and at that time had a CT of the femur which showed presumed subacute hemorrhage extending down the entire lateral left thigh along the inner aspect of the tensor fascia paco with additional subcutaneous and edema. Patient was admitted and seen by Dr. Perez who performed I&D of left thigh infected seroma on March 04, 2018. Cultures were obtained and patient was put on antibiotics. He was discharged on Keflex on 03/05/2018, cultures have not shown no growth at that time. Today patient was called by Dr. Mendes and inform that the wound was growing acid- fast organism. Patient presented back to the emergency room. Patient indicates that he has had chills and sweats mainly at night, he has not checked his temperature. He feels that the pain has worsened and has continued to take Percocet. The swelling has not changed much, there is some mild erythema to the top of the thigh which has unchanged. He feels that the leg is more painful especially with standing and feels hot to touch. He has been able to go back to work. Denies any other symptoms, no chest pain, shortness of breath , no diarrhea, no vomiting. Has had some mild nausea. Patient was evaluated in the emergency room, WBC 9.8. CMP unremarkable. Lactic acid 1.5. MRI of the left leg was done showing a large enhancing edematous collection within the vastus lateralis muscle with very impressive surrounding soft tissue edema. There is also an elongated fluid collection deep to the fascia in the peripheral aspect of the mass, presumed abscess. What is unusual or areas of microscopic fat within the collection, can be seen in patients with a resolving hematoma or possibly a hemorrhagic hemangioma. Similar to the recent CT scan. Dr. Peña was contacted, recommended MRI and no antibiotics for now. Dr. Perez also contacted, no plans for surgical intervention at this time. Patient is admitted for further evaluation and treatment. - Diagnosis (1) Acid fast bacillus (2) Abscess of left thigh Inpatient Certification: I certify that the inpatient services were ordered in accordance with Medicare regulations governing the order. This includes certification that hospital inpatient services are reasonable and necessary and in the case of services not specified as inpatient-only under 42 CFR 419.22(n), that they are appropriately provided as inpatient services in accordance to with the 2-midnight benchmark under 43 CFR 412.3(e) Estimated Total Length of Stay (Days): 2 Plans for Post Hospital Care: Not yet determined Review of Systems All other systems reviewed negative except as stated in HPI PMFSH - History History Provided By: Patient - Medical History Medical History: Medical History (Last Reviewed 03/08/18 @ 17:58 by CATARINA Aguila) Hematoma of left thigh Hx of back injury - Surgical History Surgical History: Surgical History (Last Reviewed 03/08/18 @ 17:58 by CATARINA Aguila) History of vocal cord polypectomy - Family History Family History: Family History (Last Updated 03/08/18 @ 17:58 by CATARINA Aguila) Other Family history reviewed with no changes - Social History I have reviewed the patient's Social History: Yes - Tobacco History Second Hand Smoke Exposure: No Smoking Status: Former smoker Tobacco Type: Cigarettes - Alcohol History How Often Do You Have a Drink Containing Alcohol: Monthly or less - Substance Use History Substance History: No History of Abuse - Travel History Recent Travel in the [place] Within the Last 8 Weeks: No Recent Travel Out of the Country Within the Last 8 Weeks: No - Immunization History Tetanus Immunization: Unsure Hx Influenza Vaccine This Season: No Medications and Allergies Active Medications: Active Medications Acetaminophen (Tylenol) 650 mg PO Q4H PRN PRN Reason: Temp > 100.4 Al Hydroxide/Mg Hydroxide (Milk Of Magnesia Liq) 30 ml PO Q12H PRN PRN Reason: Mild Constipation Bisacodyl (Dulcolax Supp) 10 mg RECTAL DAILY PRN PRN Reason: SEVERE CONSITIPATION Lactulose (Lactulose Liq) 30 ml PO DAILY PRN PRN Reason: SEVERE CONSITIPATION Ondansetron HCl (Zofran Inj) 4 mg IV.PUSH Q6H PRN PRN Reason: NAUSEA OR VOMITING Oxycodone/Acetaminophen (Percocet 10/325 Mg) 1 tab PO Q6H PRN PRN Reason: Acute Pain Sennosides (Senokot) 17.2 mg PO Q12H PRN PRN Reason: Moderate Constipation Allergies Allergy/AdvReac Type Severity Reaction Status Date / Time adhesive tape Allergy Rash Verified 03/03/18 16:11 Exam Vital signs: Vital Signs 03/08/18 11:56 Temperature 97.8 F Pulse Rate 92 H Respiratory Rate 14 Blood Pressure 154/77 H Pulse Oximetry 100 Intake & Output 03/07/18 03/08/18 03/08/18 18:59 06:59 18:59 Weight 86.183 kg Narrative: GENERAL: Well-nourished, well-developed patient in no apparent distress. SKIN: Warm and dry. HEAD: Atraumatic. Normocephalic. EYES: Pupils equal and round. No scleral icterus. No injection or drainage. ENT: No nasal bleeding or discharge. Mucous membranes pink and moist. NECK: Trachea midline. No JVD. CARDIOVASCULAR: Regular rate and rhythm. No murmurs, no rubs, no gallops. RESPIRATORY: No accessory muscle use. Clear to auscultation. Breath sounds equal bilaterally. GASTROINTESTINAL: Abdomen soft, non-tender, nondistended. Hepatic and splenic margins not palpable. MUSCULOSKELETAL: Left thigh noted larger than right. There is a surgical incision to the lateral aspect, no drainage. There is mild erythema to the upper thigh. There is no areas of fluctuance. Skin feels warmer than right leg. Bilateral pedal pulses 2+. NEUROLOGICAL: Awake and alert and oriented 3. No obvious cranial nerve deficits. Motor grossly within normal limits. Five out of 5 muscle strength in the arms and legs. Normal speech. PSYCHIATRIC: Appropriate mood and affect; insight and judgment normal. Results - Labs CBC & Chem 7: 03/08/18 12:38 03/08/18 12:38 Labs: Laboratory Results - last 24 hr 03/08/18 03/08/18 03/08/18 12:38 12:38 12:38 WBC 9.8 RBC 4.65 Hgb 14.8 Hct 43.3 MCV 93.0 MCH 31.8 MCHC 34.1 RDW 13.4 Plt Count 360 D MPV 7.8 Prelim Diff (Auto) Slide review pending Neut % (Auto) 75.9 H Lymph % (Auto) 12.3 [place] % (Auto) 7.4 Eos % (Auto) 3.7 Baso % (Auto) 0.7 Neut # (Auto) 7.4 Lymph # (Auto) 1.2 [place] # (Auto) 0.7 Eos # (Auto) 0.4 Baso # (Auto) 0.1 WBC Differential Manual diff final Seg Neuts % (Manual) 84 H Lymphocytes % (Manual) 7 L Monocytes % (Manual) 6 Eosinophils % (Manual) 2 Metamyelocytes % (Man) 1 Abs Neuts (Manual) 8.3 H Differential Comment . Platelet Estimate Normal Platelet Morphology Normal Sodium 137 Potassium 4.1 Chloride 102 Carbon Dioxide 29.1 Anion Gap 6 BUN 19 H Creatinine 1.13 Estimated GFR 74 L Random Glucose 91 Lactic Acid 1.5 Calcium 8.7 Total Bilirubin 0.4 AST 29 ALT 30 Alkaline Phosphatase 56 Total Protein 7.4 Albumin 3.0 L - Imaging Impressions Femur MRI 03/08/18 14:00 CONCLUSION: 1. There is a large enhancing edematous collection within the vastus lateralis muscle with very impressive surrounding soft tissue edema. There is also an elongated fluid collection deep to the fascia in the peripheral aspect of the mass, presumed abscess. What is unusual are areas of macroscopic fat within the collection, can be seen in patients with a resolving hematoma or possibly a hemorrhagic hemangioma. Similar to the recent CT scan. Caprini VTE Risk Assessment Caprini VTE Risk Assessment: No/Low Risk (score <= 1) Caprini Risk Assessment Model: Point Value = 1 Point Value = 2 Point Value = 3 Point Value = 5 Age 41-60 Minor surgery BMI > 25 kg/m2 Swollen legs Varicose veins or History of unexplained or recurrent spontaneous Oral contraceptives or hormone replacement Sepsis (< 1 month) Serious lung disease, including pneumonia (< 1 month) Abnormal pulmonary function Acute myocardial infarction Congestive heart failure (< 1 month) History of inflammatory bowel disease Medical patient at bed rest Age 61-74 Arthroscopic surgery Major open surgery (> 45 min) Laparoscopic surgery (> 45 min) Malignancy Confined to bed (> 72 hours) Immobilizing plaster cast Central venous access Age >= 75 History of VTE Family history of VTE Factor V Leiden Prothrombin [id number] Lupus anticoagulant Anticardiolipin antibodies Elevated serum homocysteine Heparin-induced thrombocytopenia Other congenital or acquired thrombophilia Stroke (< 1 month) Elective arthroplasty Hip, pelvis, or leg fracture Acute spinal cord injury (< 1 month) Prophylaxis Regimen: Total Risk Factor Score Risk Level Prophylaxis Regimen 0-1 Low Early ambulation 2 Moderate Order ONE of the following: *Sequential Compression Device (SCD) *Heparin 5000 units SQ BID 3-4 Higher Order ONE of the following medications: *Heparin 5000 units SQ TID *Enoxaparin/Lovenox 40 mg SQ daily (WT < 150 kg, CrCl > 30 mL/min) *Enoxaparin/Lovenox 30 mg SQ daily (WT < 150 kg, CrCl > 10-29 mL/min) *Enoxaparin/Lovenox 30 mg SQ BID (WT < 150 kg, CrCl > 30 mL/min) AND/OR *Sequential Compression Device (SCD) 5 or more Highest Order ONE of the following medications: *Heparin 5000 units SQ TID (Preferred with Epidurals) *Enoxaparin/Lovenox 40 mg SQ daily (WT < 150 kg, CrCl > 30 mL/min) *Enoxaparin/Lovenox 30 mg SQ daily (WT < 150 kg, CrCl > 10-29 mL/min) *Enoxaparin/Lovenox 30 mg SQ BID (WT < 150 kg, CrCl > 30 mL/min) AND *Sequential Compression Device (SCD) Assessment and Plan - Assessment (1) Acid fast bacillus Code(s): A31.9 - Mycobacterial infection, unspecified Status: Acute (2) Abscess of left thigh Code(s): L02.416 - Cutaneous abscess of left lower limb Status: Acute - Plan 37-year-old male, status post injury to left thigh from a "squat and sprint" injected himself with dexamethasone approximately 2 weeks ago. Developed fevers , was admitted on 03/03 and underwent I&D of left thigh infected seroma on 2017. Cultures came back positive for acid-fast bacilli. Left thigh abscess, status post I&D 03/04/2018. Cultures positive for acid-fast bacilli Patient injected himself with dexamethasone approximately 2 weeks ago. -Infectious disease has been consulted, at this time recommends more cultures and to hold off on any antibiotics Left thigh MRI results noted --large enhancing edematous collection within the vastus lateralis muscle with very impressive surrounding soft tissue edema. There is also an elongated fluid collection deep to the fascia in the peripheral aspect of the mass, presumed abscess. What is unusual are areas of macroscopic fat within the collection, can be seen in patients with a resolving hematoma or possibly a hemorrhagic hemangioma. Similar to the recent CT scan. Orthopedic surgeon, Dr. Perez has been consulted. At this time there is no plans for any drainage of seroma. -Resume Percocet 1 tab p.o. every 6 as needed for pain Plan of care was discussed with patient and , questions answered in detail. Patient seen and examined with Dr. Abebe. Further management of the patient will be dependent on hospital course
[2018-03-08] MEDS ORDERED: Morphine Inj 4 MG/ML Vial IV.PUSH ONE (21:34)
[2018-03-08] MEDS ORDERED: Zolpidem Tartrate 5 MG Tablet PO ONE (21:45)
[2018-03-08] MEDS: oxyCODONE/Acetaminophen 10/325 Tablet PO PRN (22:41)
[2018-03-09] MEDS: oxyCODONE/Acetaminophen 10/325 Tablet PO PRN ×5 (03:24→21:16)
--- NOTE | 2018-03-09 10:56 | P.PN ---
Subjective Interval history: Patient with pain in his thigh. No fever or chills. Is able to ambulate. No nausea or vomiting no diarrhea constipation. Physical Exam Vital signs: Vital Signs 03/08/18 11:56 03/08/18 18:00 03/08/18 20:00 Temperature 97.8 F 98.3 F Pulse Rate 92 H 70 69 Respiratory Rate 14 12 17 Blood Pressure 154/77 H 146/84 H 149/79 H Pulse Oximetry 100 100 96 03/09/18 00:00 03/09/18 08:00 Temperature 98.6 F Pulse Rate 88 73 Respiratory Rate 20 16 Blood Pressure 116/69 112/73 Pulse Oximetry 96 99 Intake & Output 03/08/18 03/09/18 03/09/18 18:59 06:59 18:59 Intake Total 480 / 480 Balance 480 / 480 Weight 86.183 kg 86 kg Intake: Oral 480 / 480 Other: # Voids 2 Weight On Admission 86.581 kg Narrative: GENERAL: Well-nourished, well-developed patient in no apparent distress. CARDIOVASCULAR: Regular rate and rhythm. No murmurs, no rubs, no gallops. RESPIRATORY: No accessory muscle use. Clear to auscultation. Breath sounds equal bilaterally. GASTROINTESTINAL: Abdomen soft, non-tender, nondistended. Hepatic and splenic margins not palpable. MUSCULOSKELETAL: Left thigh noted larger than right. There is a surgical incision to the lateral aspect, no drainage. There is mild erythema to the upper thigh. There is no areas of fluctuance. Skin feels warmer than right leg. Bilateral pedal pulses 2+. NEUROLOGICAL: Awake and alert and oriented 3. No obvious cranial nerve deficits. Motor grossly within normal limits. Five out of 5 muscle strength in the arms and legs. Normal speech. Results - Labs CBC & Chem 7: 03/08/18 12:38 03/08/18 12:38 Laboratory Results - last 24 hr 03/08/18 03/08/18 03/08/18 12:38 12:38 12:38 WBC 9.8 RBC 4.65 Hgb 14.8 Hct 43.3 MCV 93.0 MCH 31.8 MCHC 34.1 RDW 13.4 Plt Count 360 D MPV 7.8 Prelim Diff (Auto) Slide review pending Neut % (Auto) 75.9 H Lymph % (Auto) 12.3 [place] % (Auto) 7.4 Eos % (Auto) 3.7 Baso % (Auto) 0.7 Neut # (Auto) 7.4 Lymph # (Auto) 1.2 [place] # (Auto) 0.7 Eos # (Auto) 0.4 Baso # (Auto) 0.1 WBC Differential Manual diff final Seg Neuts % (Manual) 84 H Lymphocytes % (Manual) 7 L Monocytes % (Manual) 6 Eosinophils % (Manual) 2 Metamyelocytes % (Man) 1 Abs Neuts (Manual) 8.3 H Differential Comment . Platelet Estimate Normal Platelet Morphology Normal Sodium 137 Potassium 4.1 Chloride 102 Carbon Dioxide 29.1 Anion Gap 6 BUN 19 H Creatinine 1.13 Estimated GFR 74 L Random Glucose 91 Lactic Acid 1.5 Calcium 8.7 Total Bilirubin 0.4 AST 29 ALT 30 Alkaline Phosphatase 56 Total Protein 7.4 Albumin 3.0 L - Imaging Impressions Femur MRI 03/08/18 14:00 CONCLUSION: 1. There is a large enhancing edematous collection within the vastus lateralis muscle with very impressive surrounding soft tissue edema. There is also an elongated fluid collection deep to the fascia in the peripheral aspect of the mass, presumed abscess. What is unusual are areas of macroscopic fat within the collection, can be seen in patients with a resolving hematoma or possibly a hemorrhagic hemangioma. Similar to the recent CT scan. Assessment and Plan - Assessment (1) Acid fast bacillus Code(s): A31.9 - Mycobacterial infection, unspecified Status: Acute (2) Abscess of left thigh Code(s): L02.416 - Cutaneous abscess of left lower limb Status: Acute - Plan 37-year-old male, status post injury to left thigh from a "squat and sprint" injected himself with dexamethasone approximately 2 weeks ago. Developed fevers , was admitted on 03/03 and underwent I&D of left thigh infected seroma on 2017. Cultures came back positive for acid-fast bacilli. Left thigh abscess, status post I&D 03/04/2018. Cultures positive for acid-fast bacilli Patient injected himself with dexamethasone approximately 2 weeks ago. -Infectious disease has been consulted, at this time recommends more cultures and to hold off on any antibiotics Left thigh MRI results noted --large enhancing edematous collection within the vastus lateralis muscle with very impressive surrounding soft tissue edema. There is also an elongated fluid collection deep to the fascia in the peripheral aspect of the mass, presumed abscess. What is unusual are areas of macroscopic fat within the collection, can be seen in patients with a resolving hematoma or possibly a hemorrhagic hemangioma. Similar to the recent CT scan. Orthopedic surgeon, Dr. Perez has been consulted. At this time there is no plans for any drainage of seroma. Recommends continue antibiotics -Resume Percocet 10/325 1 tab p.o. every 6 as needed for pain. Add morphine for breakthrough pain this patient complains of pain Infectious disease consulted Dr. Peña will evaluate the patient. Recommends IR consultation for aspiration Antibiotics per infectious disease Discussed with patient and at bedside, questions answered in detail.
--- NOTE | 2018-03-09 12:48 | P.PNOP ---
Subjective Interval history: Patient resting comfortably. States his left thigh pain is slightly improved from yesterday. Reports decreased redness and swelling over the left thigh over the last couple of days although not complete resolution. Continues to complain of thigh pain with range of motion of the knee. Denies fevers but has had some night sweats. Physical Exam Vital signs: Vital Signs 03/08/18 18:00 03/08/18 20:00 03/09/18 00:00 Temperature 98.3 F Pulse Rate 70 69 88 Respiratory Rate 12 17 20 Blood Pressure 146/84 H 149/79 H 116/69 Pulse Oximetry 100 96 96 03/09/18 08:00 Temperature 98.6 F Pulse Rate 73 Respiratory Rate 16 Blood Pressure 112/73 Pulse Oximetry 99 Intake & Output 03/08/18 03/09/18 03/09/18 18:59 06:59 18:59 Intake Total 480 / 480 Balance 480 / 480 Weight 86.183 kg 86 kg Intake: Oral 480 / 480 Other: # Voids 2 Weight On Admission 86.581 kg Narrative: Awake, alert, no acute distress Left lower extremity: Dressing has been removed. Sutures remain in place. Incision is intact without any expressible drainage. Minimal erythema about the left thigh, significantly improved since preoperatively. Decreased swelling and fluctuance around the lateral aspect of the thigh compared to preoperatively. Minimal knee effusion. Patient is neurovascularly intact distally. Negative Homans. Results - Labs CBC & Chem 7: 03/08/18 12:38 03/08/18 12:38 Laboratory Results - last 24 hr 03/08/18 03/08/18 03/08/18 12:38 12:38 12:38 WBC 9.8 RBC 4.65 Hgb 14.8 Hct 43.3 MCV 93.0 MCH 31.8 MCHC 34.1 RDW 13.4 Plt Count 360 D MPV 7.8 Prelim Diff (Auto) Slide review pending Neut % (Auto) 75.9 H Lymph % (Auto) 12.3 [place] % (Auto) 7.4 Eos % (Auto) 3.7 Baso % (Auto) 0.7 Neut # (Auto) 7.4 Lymph # (Auto) 1.2 [place] # (Auto) 0.7 Eos # (Auto) 0.4 Baso # (Auto) 0.1 WBC Differential Manual diff final Seg Neuts % (Manual) 84 H Lymphocytes % (Manual) 7 L Monocytes % (Manual) 6 Eosinophils % (Manual) 2 Metamyelocytes % (Man) 1 Abs Neuts (Manual) 8.3 H Differential Comment . Platelet Estimate Normal Platelet Morphology Normal Sodium 137 Potassium 4.1 Chloride 102 Carbon Dioxide 29.1 Anion Gap 6 BUN 19 H Creatinine 1.13 Estimated GFR 74 L Random Glucose 91 Lactic Acid 1.5 Calcium 8.7 Total Bilirubin 0.4 AST 29 ALT 30 Alkaline Phosphatase 56 Total Protein 7.4 Albumin 3.0 L - Imaging Impressions Femur MRI 03/08/18 14:00 CONCLUSION: 1. There is a large enhancing edematous collection within the vastus lateralis muscle with very impressive surrounding soft tissue edema. There is also an elongated fluid collection deep to the fascia in the peripheral aspect of the mass, presumed abscess. What is unusual are areas of macroscopic fat within the collection, can be seen in patients with a resolving hematoma or possibly a hemorrhagic hemangioma. Similar to the recent CT scan. Assessment and Plan - Assessment and Plan 37yo M POD#6 s/p I&D L thigh seroma/abscess, now with +AFB on cultures MRI reviewed. Patient does still have small fluid collection around the lateral aspect of his thigh. In addition, there is enhancement within the vastus lateralis consistent with at least myositis. Infectious disease is following and is recommending radiology aspiration of the fluid to determine if there are other bacteria besides acid-fast bacilli. At this time, I would not recommend further surgical intervention. Will follow cultures and clinical progress with antibiotics. I did discuss with the patient that should he not progress with antibiotics or should this new culture be returning, he could require surgical intervention at that time.
--- NOTE | 2018-03-09 13:58 | MB ---
cc: Chito Peña MD DATE: 03/09/2018 REQUESTING PERSONNEL: ELAINA Soto ATTENDING PHYSICIAN: Kaylee Snyder MD REASON: Positive AFB wound culture. HISTORY OF PRESENT ILLNESS: This is a 37-year-old white male who initially presented to [facility] on 03/02/2018 with left thigh pain and swelling. The patient was noted to have subacute hemorrhage extending down to the entire left lateral thigh along the inner aspect of the tensor fascia paco and subcutaneous edema. The patient underwent surgical incision and excisional debridement of left thigh infected seroma. Culture was taken. At the time, he was in the hospital, he had elevated temperature up to 101.9 degrees. The patient was discharged home on oral antibiotics. He came back to the emergency department yesterday again for evaluation of the same problem and was told that the culture was growing acid fast organisms and that he needed to come back for further evaluation. MRI was repeated and it came back showing large enhancing fluid collection within the vastus lateralis muscle with very impressive surrounding soft tissue edema and elongated fluid collection deep into the fascia in the peritoneal aspect of the mass, presumed to be abscess. The culture which was taken previously has acid fast bacteria. There is no identity available on the organism. The bacteria was sent to the state labs in [place] for identification. The patient states that he has less pain on the left thigh, but he does feel stiffness in the left thigh at the left knee. He states that he gets episodes of sweats. The patient admits to injecting dexamethasone into the thigh to build up muscle prior to the onset of the pain and fever. He is currently afebrile. His white blood cell count is normal. He denies other symptoms. PAST MEDICAL HISTORY: Vocal cord polypectomy. ALLERGIES: ADHESIVE TAPE. MEDICATIONS: Percocet. SOCIAL HISTORY: The patient is . 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 SOCIAL HISTORY: Prior smoker. Denies alcohol, history of illicit drugs in the past. FAMILY HISTORY: Noncontributory. REVIEW OF SYSTEMS: All systems have been reviewed and are negative, except for that mentioned in the history of present illness. PHYSICAL EXAMINATION: GENERAL: This is a well-developed male who is in no acute distress. He is awake and alert and oriented. VITAL SIGNS: Temperature 98.6, BP 112/73, respirations 16, heart rate 73. HEENT: Head atraumatic. Extraocular movements grossly intact. Pupils reactive to light. No icterus. Oropharynx: Moist mucosa. No visible lesions. NECK: Supple without adenopathy. LUNGS: Clear to auscultation. HEART: Regular S1, S2, without murmurs, rubs or gallops. ABDOMEN: Bowel sounds present. flat. Soft, nontender. RECTAL: Not performed. EXTREMITIES: Left thigh is swollen and there is a surgical incision of the lateral aspect, which is clean. There is mild erythema at the posterior left thigh upper aspect and there is tenderness at the anterior aspect of the left thigh and around the left knee. The left leg is slightly larger than the right. No erythema overlying the area where the incision is located from prior surgery. SKIN: No rash. NEUROLOGIC: No gross focal finding. PSYCHIATRIC: The patient is calm and cooperative. LABORATORY DATA: WBC 9.8, platelets 360, hemoglobin 14.8, 75% neutrophils, 12% lymphocytes. Creatinine 1.13, estimated GFR of 74. Liver function tests normal. Sodium 137. IMPRESSION: Extensive soft tissue infection involving the left thigh and vastus lateralis muscle and also fluid collection suggesting an abscess. Prior surgical culture showing acid fast bacteria. The patient reports injecting self into the left thigh, which very likely is the cause of this infection. Although it is possible this could all be due to acid fast bacteria infection, we need to make sure there is not another organism of concern. The rapid growth of the acid fast bacteria makes it very likely to be atypical mycobacteria such as Mycobacterium abscessus or Mycobacterium fortuitum but we need the identity of the organism to determine that for sure. The patient will require IV antibiotics to treat the mycobacteria since this can be very resistant to oral antibiotics. RECOMMENDATIONS: 1. Schedule ultrasound-guided aspirate for repeat culture. I have discussed the request with radiology and reviewed the MRI with radiology. This has been ordered. 2. After the aspirate is done, stat antibiotic treatment with cefoxitin intravenous and amikacin until we get further information on the cultures and then adjustment of antibiotics after that if necessary. Due to the severity of this infection, he will likely need a fairly long course of antibiotics and followup to resolution. Thank you for this consultation. The patient's progress will be monitored and further recommendations will be given upon followup if necessary. Chito Peña MD FFLevar/ct , 01:06 PM , 01:23 PM [facility]
[2018-03-09] MEDS ORDERED: Bupivacaine PF 0.75% Inj 10 ML Vial ONE (14:18)
[2018-03-09] MEDS ORDERED: Lidocaine PF 1% Inj 5 ML Vial ONE (14:19)
--- NOTE | 2018-03-09 15:14 | US ---
EXAM DATE: 03/09/2018 12:00 AM EDT AGE/SEX: 37 years / Male INDICATIONS: Left thigh abscess. CLINICAL DATA: This is the patient's initial encounter. Patient reports that signs and symptoms have been present for 4 - 6 days and indicates a pain score of 4/10. MEDICAL/SURGICAL HISTORY: . Hematoma left thigh. Back injury. . Vocal cord polypectomy. COMPARISON: No prior exams available for comparison. FLUID: Total volume of 40 cc of clear fluid was removed. Fluid was sent to lab for ordered studies. Post procedure scanning reveals no hematoma or other complication. . . TECHNIQUE: Ultrasound guidance for needle aspiration. Aspiration. The risks, benefits and alternatives to the procedure were explained and verbal and written consent w as obtained. The site was prepped in sterile fashion. Full sterile technique was used, including ca p, mask, sterile gloves and gown and a large sterile sheet. Hand hygiene and 2% chlorhexidine and/or betadine/alcohol prep was utilized per protocol for cutaneous antisepsis. The skin and subcutaneous tissues were infiltrated with local anesthetic solution. Sterile gel and sterile probe cover were u tilized for ultrasound guidance. With the patient on the ultrasound table, ultrasound imaging was used to select the most appropriate approach for aspiration. A dermatotomy was made with an 11 blade scalpel. A 18-gauge needle was adv anced into the fluid collection without difficulty. Approximately 40 cc of serous fluid was removed. Half of this was sent to the lab for Gram stain culture and sensitivity. Follow-up ultrasound imaging of the thigh was performed. There was complete removal of the fluid jonelle ection. CONCLUSION: Successful aspiration of a fluid collection from the lateral aspect of the thigh. Electronically signed by: Jones Richardson MD 03/09/2018 3:12 PM EDT
[2018-03-09] MEDS: AMIKACIN IV.SIG SCH (17:58)
[2018-03-09] MEDS: SODIUM CHLOR 0.9% IV.SIG SCH (17:58)
[2018-03-09] MEDS: Morphine Inj 4 MG/ML Vial IV.PUSH PRN (19:26)
[2018-03-10] MEDS: oxyCODONE/Acetaminophen 10/325 Tablet PO PRN ×6 (00:59→23:48)
[2018-03-10] MEDS: AMIKACIN IV.SIG SCH ×3 (01:00→17:40)
[2018-03-10] MEDS: SODIUM CHLOR 0.9% IV.SIG SCH ×3 (01:00→17:40)
[2018-03-10] MEDS: Zolpidem Tartrate 5 MG Tablet PO PRN (02:10)
[2018-03-10] MEDS: Morphine Inj 4 MG/ML Vial IV.PUSH PRN ×3 (02:26→21:20)
[2018-03-10] MEDS ORDERED: Amikacin Consult Pharmacy OTHER PRN (13:33)
--- NOTE | 2018-03-10 13:33 | P.PNID ---
Subjective Remarks: Patient has pain at the left thigh. Says he felt some relief after the aspiration of fluid yesterday. No sweats last night. afebrile. This is a 37-year-old white male who initially presented to [facility] on 03/02/2018 with left thigh pain and swelling. The patient was noted to have subacute hemorrhage extending down to the entire left lateral thigh along the inner aspect of the tensor fascia paco and subcutaneous edema. The patient underwent surgical incision and excisional debridement of left thigh infected seroma. Culture was taken. At the time, he was in the hospital, he had elevated temperature up to 101.9 degrees. The patient was discharged home on oral antibiotics. He came back to the emergency department yesterday again for evaluation of the same problem and was told that the culture was growing acid fast organisms and that he needed to come back for further evaluation. MRI was repeated and it came back showing large enhancing fluid collection within the vastus lateralis muscle with very impressive surrounding soft tissue edema and elongated fluid collection deep into the fascia in the peritoneal aspect of the mass, presumed to be abscess. The culture which was taken previously has acid fast bacteria. tang blood cell count is normal. He denies other symptoms. Allergies/Adverse Reactions: Allergies adhesive tape Allergy (Verified 03/03/18 16:11) Rash Objective Vital Signs 03/09/18 13:55 03/09/18 14:41 03/09/18 16:00 Temperature 98.2 F 99.1 F 98.9 F Pulse Rate 77 72 67 Respiratory Rate 16 18 16 Blood Pressure 146/80 H 137/81 130/75 Pulse Oximetry 99 98 98 03/09/18 20:00 03/10/18 00:00 03/10/18 00:57 Temperature 98.8 F 98.0 F Pulse Rate 74 73 Respiratory Rate 20 20 20 Blood Pressure 126/76 124/64 Pulse Oximetry 97 96 03/10/18 00:58 03/10/18 07:33 Temperature 98.3 F Pulse Rate 83 Respiratory Rate 20 18 Blood Pressure 131/80 Pulse Oximetry 100 Intake & Output 03/09/18 03/10/18 03/10/18 18:59 06:59 18:59 Intake Total 602 / 602 782 / 782 Balance 602 / 602 782 / 782 Weight 85.8 kg Intake: IV 102 / 102 302 / 302 202 / 202 Amikin Inj 500 MG In NS Inj 100 102 / 102 102 / 102 102 / 102 ML @ 200 mls/hr IV.SIG Q8H GAYLE Rx#:[id number] Mefoxin Inj 2 GM In NS Inj 100 200 / 200 100 / 100 ML @ 200 mls/hr IV.SIG Q6H GAYLE Rx#:[id number] Oral 500 / 500 480 / 480 Other: # Voids 5 3 # Bowel Movements 0 03/09/18 14:35 Fluid - Other Gram Stain - Final 03/09/18 14:35 Fluid - Other Wound Culture - Pending 03/09/18 14:35 Fluid - Other Acid Fast Bacilli Smear - Pending 03/09/18 14:35 Fluid - Other Mycobacterial Culture - Pending Lab - Hematology Results 03/08/18 12:38 WBC Differential Manual diff final Seg Neuts % (Manual) 84 H Lymphocytes % (Manual) 7 L Monocytes % (Manual) 6 Eosinophils % (Manual) 2 Metamyelocytes % (Man) 1 Abs Neuts (Manual) 8.3 H Platelet Estimate Normal Platelet Morphology Normal Lab - Chemistry Results 03/08/18 03/08/18 12:38 12:38 Sodium 137 Potassium 4.1 Chloride 102 Carbon Dioxide 29.1 Anion Gap 6 BUN 19 H Creatinine 1.13 Estimated GFR 74 L Random Glucose 91 Lactic Acid 1.5 Calcium 8.7 Total Bilirubin 0.4 AST 29 ALT 30 Alkaline Phosphatase 56 Total Protein 7.4 Albumin 3.0 L Imaging: ITS Impressions Femur MRI 03/08/18 14:00 CONCLUSION: 1. There is a large enhancing edematous collection within the vastus lateralis muscle with very impressive surrounding soft tissue edema. There is also an elongated fluid collection deep to the fascia in the peripheral aspect of the mass, presumed abscess. What is unusual are areas of macroscopic fat within the collection, can be seen in patients with a resolving hematoma or possibly a hemorrhagic hemangioma. Similar to the recent CT scan. Needle Aspiration US 03/09/18 00:00 CONCLUSION: Successful aspiration of a fluid collection from the lateral aspect of the thigh. Physical Exam: PHYSICAL EXAMINATION: GENERAL: No acute distress. Awake and alert and oriented. HEENT: Head atraumatic. Extraocular movements grossly intact. Pupils reactive to light. No icterus. Oropharynx: Moist mucosa. No visible lesions. NECK: Supple without adenopathy. LUNGS: Clear to auscultation. HEART: Regular S1, S2, without murmurs, rubs or gallops. ABDOMEN: Bowel sounds present. flat. Soft, nontender. EXTREMITIES: Left thigh is swollen and there is a surgical incision of the lateral aspect, which is clean. Mild erythema at the posterior left thigh upper aspect and there is tenderness at the anterior aspect of the left thigh and around the left knee. The left leg is slightly larger than the right. No erythema overlying the area where the incision is located from prior surgery. SKIN: No rash. NEUROLOGIC: No gross focal finding. PSYCHIATRIC: Calm and cooperative. Assessment and Plan - Plan IMPRESSION: Extensive soft tissue infection/abscess involving the left thigh and vastus lateralis muscle. Fluid culture has AFB. 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 RECOMMENDATIONS: Continue Cefoxitin and amikacin IV and await identity and sensitivity if the AFB [facility] [place]. It may be days before further info is available. Decision on final antibiotic choice cannot be made without final ID of the organism. Due to the severity of this infection, he will likely need a fairly long course of antibiotics and followup. Monitor renal function while on Amikacin. Explained to patient.
[2018-03-10] MEDS ORDERED: Pharmacy Ordered Lab Info OTHER ONE ×2 (17:45→19:00)
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
[2018-03-10] MEDS: Bisacodyl 10 MG Supp RECTAL PRN (21:20)
[2018-03-11] MEDS: Zolpidem Tartrate 5 MG Tablet PO PRN ×2 (00:57→21:06)
[2018-03-11] MEDS: SODIUM CHLOR 0.9% IV.SIG SCH ×3 (03:32→18:47)
[2018-03-11] MEDS: AMIKACIN IV.SIG SCH ×3 (03:32→18:47)
[2018-03-11] MEDS: Morphine Inj 4 MG/ML Vial IV.PUSH PRN ×3 (04:20→21:06)
[2018-03-11] MEDS: oxyCODONE/Acetaminophen 10/325 Tablet PO PRN ×5 (06:30→23:44)
[2018-03-11 07:30] LABS: Calcium 8.2 mg/dL (8.5-10.1); Carbon Dioxide 31.7 meq/L (21.0-32.0); Potassium 4.2 meq/L (3.5-5.1)
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
[2018-03-11] MEDS: Bisacodyl 10 MG Supp RECTAL PRN (12:24)
[2018-03-12] MEDS: SODIUM CHLOR 0.9% IV.SIG SCH ×3 (02:02→18:48)
[2018-03-12] MEDS: AMIKACIN IV.SIG SCH ×3 (02:02→18:48)
[2018-03-12] MEDS: oxyCODONE/Acetaminophen 10/325 Tablet PO PRN ×5 (03:57→20:32)
[2018-03-12] MEDS: Morphine Inj 4 MG/ML Vial IV.PUSH PRN (05:43)
[2018-03-12] MEDS ORDERED: Ketorolac Inj 30 MG/ML (IVP) Vial IV.PUSH ONE ×2 (13:13→13:45)
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
[2018-03-12] MEDS ORDERED: Sod Phosphate/Sod Biphosphate (Adult) Enema 133 ML Bottle RECTAL PRN (13:14)
--- NOTE | 2018-03-12 14:13 | P.PNID ---
Subjective Remarks: Patient continues with pain at the left thigh. No sweats last night. afebrile. Wound culture identified as mycobacterium abscessus. This is a 37-year-old white male who initially presented to [facility] on 03/02/2018 with left thigh pain and swelling. The patient was noted to have subacute hemorrhage extending down to the entire left lateral thigh along the inner aspect of the tensor fascia paco and subcutaneous edema. The patient underwent surgical incision and excisional debridement of left thigh infected seroma. Culture was taken. At the time, he was in the hospital, he had elevated temperature up to 101.9 degrees. The patient was discharged home on oral antibiotics. He came back to the emergency department yesterday again for evaluation of the same problem and was told that the culture was growing acid fast organisms and that he needed to come back for further evaluation. MRI was repeated and it came back showing large enhancing epididymitis collection within the vastus lateralis muscle with very impressive surrounding soft tissue edema and elongated fluid collection deep into the fascia in the peritoneal aspect of the mass, presumed to be abscess. Allergies/Adverse Reactions: Allergies adhesive tape Allergy (Verified 03/03/18 16:11) Rash Objective Vital Signs 03/11/18 15:53 03/11/18 20:00 03/12/18 00:00 Temperature 98.7 F 99.2 F 98.7 F Pulse Rate 79 69 85 Respiratory Rate 19 17 18 Blood Pressure 138/74 133/67 125/76 Pulse Oximetry 100 97 99 03/12/18 08:00 03/12/18 12:00 Temperature 98.4 F 97.2 F L Pulse Rate 68 62 Respiratory Rate 16 14 Blood Pressure 132/77 126/77 Pulse Oximetry 98 100 Intake & Output 03/11/18 03/12/18 03/12/18 18:59 06:59 18:59 Intake Total 1742 / 1742 404 / 404 102 / 102 Balance 1742 / 1742 404 / 404 102 / 102 Weight 97.8 kg Intake: IV 402 / 402 404 / 404 102 / 102 Amikin Inj 500 MG In NS Inj 100 102 / 102 204 / 204 102 / 102 ML @ 200 mls/hr IV.SIG Q8H GAYLE Rx#:[id number] Mefoxin Inj 2 GM In NS Inj 100 300 / 300 200 / 200 ML @ 200 mls/hr IV.SIG Q6H GAYLE Rx#:[id number] Oral 1340 / 1340 Other: # Voids 6 4 # Bowel Movements 1 03/09/18 14:35 Fluid - Other Gram Stain - Final 03/09/18 14:35 Fluid - Other Wound Culture - Final No growth in 72 hours (aerobically and anaerobically ) 03/09/18 14:35 Fluid - Other Acid Fast Bacilli Smear - Final No acid fast bacilli seen 03/09/18 14:35 Fluid - Other Mycobacterial Culture - Pending Lab - Chemistry Results 03/10/18 03/11/18 03/12/18 17:47 05:08 03:12 Sodium 137 Potassium 4.2 Chloride 101 Carbon Dioxide 31.7 Anion Gap 4 L BUN 17 18 16 Creatinine 1.18 1.43 H 1.25 Estimated GFR 70 L 56 L 66 L Random Glucose 82 Calcium 8.2 L Imaging: ITS Impressions Femur MRI 03/08/18 14:00 CONCLUSION: 1. There is a large enhancing edematous collection within the vastus lateralis muscle with very impressive surrounding soft tissue edema. There is also an elongated fluid collection deep to the fascia in the peripheral aspect of the mass, presumed abscess. What is unusual are areas of macroscopic fat within the collection, can be seen in patients with a resolving hematoma or possibly a hemorrhagic hemangioma. Similar to the recent CT scan. Needle Aspiration US 03/09/18 00:00 CONCLUSION: Successful aspiration of a fluid collection from the lateral aspect of the thigh. Physical Exam: PHYSICAL EXAMINATION: GENERAL: No acute distress. Awake and alert and oriented. HEENT: Head atraumatic. Extraocular movements grossly intact. Pupils reactive to light. No icterus. Oropharynx: Moist mucosa. No visible lesions. NECK: Supple without adenopathy. LUNGS: Clear to auscultation. HEART: Regular S1, S2, without murmurs, rubs or gallops. ABDOMEN: Bowel sounds present. flat. Soft, nontender. EXTREMITIES: Left thigh is swollen and there is a surgical incision of the lateral aspect, which is clean. Mild erythema and warmth at the posterior left thigh upper aspect and there is tenderness at the anterior aspect of the left thigh and around the left knee. The left leg is slightly larger than the right. No erythema overlying the area where the incision is located from prior surgery. SKIN: No rash. NEUROLOGIC: No gross focal finding. PSYCHIATRIC: Calm and cooperative. Assessment and Plan - Plan IMPRESSION: Extensive soft tissue infection/abscess involving the left thigh and vastus lateralis muscle. 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 RECOMMENDATIONS: Continue Cefoxitin and Amikacin IV. Await sensitivity from [facility] to determine course of treatment. This organism usually requires Cefoxitin and Amikacin IV. Anticipates weeks to months of treatment. Monitor renal function while on Amikacin. Explained to patient.
[2018-03-12] MEDS: Ketorolac Inj 30 MG/ML (IVP) Vial IV.PUSH PRN (22:36)
[2018-03-13] MEDS: oxyCODONE/Acetaminophen 10/325 Tablet PO PRN ×5 (00:13→19:46)
[2018-03-13] MEDS: SODIUM CHLOR 0.9% IV.SIG SCH ×3 (01:54→17:26)
[2018-03-13] MEDS: AMIKACIN IV.SIG SCH ×3 (01:54→17:26)
[2018-03-13] MEDS: Ketorolac Inj 30 MG/ML (IVP) Vial IV.PUSH PRN ×2 (06:29→19:01)
[2018-03-13] MEDS: Bisacodyl 10 MG Supp RECTAL PRN (10:25)
--- NOTE | 2018-03-13 12:42 | P.PN ---
Subjective Interval history: The patient is in bed this does not appear in acute distress. He is however complaining of more swelling in his thigh and left leg and has pain when he is walking. No fever or chills overnight. Still constipation. No nausea or vomiting. Physical Exam Vital signs: Vital Signs 03/12/18 13:00 03/12/18 16:00 03/12/18 16:45 Temperature 98.9 F Pulse Rate 69 Respiratory Rate 16 16 18 Blood Pressure 121/70 Pulse Oximetry 98 03/12/18 17:00 03/12/18 20:00 03/13/18 00:00 Temperature 97.3 F L 98 F Pulse Rate 63 70 Respiratory Rate 18 17 17 Blood Pressure 133/77 128/67 Pulse Oximetry 100 98 03/13/18 08:00 Temperature 98.0 F Pulse Rate 65 Respiratory Rate 18 Blood Pressure 120/65 Pulse Oximetry 98 Intake & Output 03/12/18 03/13/18 03/13/18 18:59 06:59 18:59 Intake Total 2502 / 2502 884 / 884 102 / 102 Balance 2502 / 2502 884 / 884 102 / 102 Weight 97.6 kg Intake: IV 302 / 302 404 / 404 102 / 102 Amikin Inj 500 MG In NS Inj 100 102 / 102 204 / 204 102 / 102 ML @ 200 mls/hr IV.SIG Q8H GAYLE Rx#:[id number] Mefoxin Inj 2 GM In NS Inj 100 200 / 200 200 / 200 ML @ 200 mls/hr IV.SIG Q6H GAYLE Rx#:[id number] Oral 2200 / 2200 480 / 480 Other: # Voids 4 2 Date of Last Bowel Movement 03/12/18 03/12/18 Narrative: GENERAL: Well-nourished, well-developed patient in no apparent distress. CARDIOVASCULAR: Regular rate and rhythm. No murmurs, no rubs, no gallops. RESPIRATORY: No accessory muscle use. Clear to auscultation. Breath sounds equal bilaterally. GASTROINTESTINAL: Abdomen soft, non-tender, nondistended. Hepatic and splenic margins not palpable. MUSCULOSKELETAL: Left thigh noted with edema, worsening. There is a surgical incision to the lateral aspect, no drainage, sutures in place. There is mild erythema to the upper thigh. There is no areas of fluctuance. Skin feels warmer than right leg. Bilateral pedal pulses 2+. NEUROLOGICAL: Awake and alert and oriented 3. No obvious cranial nerve deficits. Motor grossly within normal limits. Five out of 5 muscle strength in the arms and legs. Normal speech. Results - Labs CBC & Chem 7: 03/08/18 12:38 03/13/18 04:35 Laboratory Results - last 24 hr 03/13/18 04:35 BUN 19 H Creatinine 1.34 H Estimated GFR 60 L Microbiology 03/09/18 14:35 Fluid - Other Gram Stain - Final 03/09/18 14:35 Fluid - Other Wound Culture - Final No growth in 72 hours (aerobically and anaerobically ) - Procedures Left thigh abscess s/p aspiration with 40 cc clear fluid sent for analysis on by IR Assessment and Plan - Assessment (1) Acid fast bacillus Code(s): A31.9 - Mycobacterial infection, unspecified Status: Acute (2) Abscess of left thigh Code(s): L02.416 - Cutaneous abscess of left lower limb Status: Acute - Plan 37-year-old male, status post injury to left thigh from a "squat and sprint" injected himself with dexamethasone approximately 2 weeks ago. Developed fevers , was admitted on 03/03 and underwent I&D of left thigh infected seroma on 2017. Cultures came back positive for acid-fast bacilli. Left thigh abscess, status post I&D 03/04/2018. Cultures positive for acid-fast bacilli Patient injected himself with dexamethasone approximately 2 weeks ago. -Infectious disease has been consulted Left thigh MRI results noted --large enhancing edematous collection within the vastus lateralis muscle with very impressive surrounding soft tissue edema. There is also an elongated fluid collection deep to the fascia in the peripheral aspect of the mass, presumed abscess. What is unusual are areas of macroscopic fat within the collection, can be seen in patients with a resolving hematoma or possibly a hemorrhagic hemangioma. Similar to the recent CT scan. Orthopedic surgeon, Dr. Perez has been consulted. -Resume Percocet 10/325 1 tab p.o. every 6 as needed for pain. Add morphine for breakthrough pain this patient complains of pain. Add toradol IV for pain and inflammation Infectious disease consulted Dr. Peña evaluated patient IR consulted s/p aspiration with 40 cc clear fluid sent for analysis on 9/26/18 Antibiotics per infectious disease Repeat Wound cultured NTD. 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 Left side noted more edema 03/13. Plan to do repeat US left thigh to check for fluid reaccumulation / abscess. Discussed plan witht he patient and also with ID specialist Dr Peña. Constipation continue bowel regimen. Add enema as need Discussed with the patient, at bedside, nurse DC plan: pending improvement and clearance by consultants Plan for L thigh US to check for fluid reaccumulation/ fluid abscess
--- NOTE | 2018-03-13 17:11 | US ---
EXAM DATE: 03/13/2018 12:00 AM EDT AGE/SEX: 38 years / Male INDICATIONS: Abscess. CLINICAL DATA: This is the patient's initial encounter. Patient reports that signs and symptoms have been present for 4 - 6 days and indicates a pain score of 4/10. MEDICAL/SURGICAL HISTORY: . Hematoma of left thigh. Back injury. Former smoker. . Vocal cord polypectomy. COMPARISON: [facility] – [place], MR THIGH LEFT W & W/O CONTRAST, 03/08/2018. . FINDINGS: There is an oval cystic-appearing smooth margin lesion with multiple internal septa located in the la teral mid thigh measuring 14.2 x 6.0 x 1.2 cm. There is some mild peripheral flow seen by color Doppl er, but no internal flow seen. This is located in the subcutaneous tissues superficial to muscle. Whe n compared to MRI on 03/08/2018, long axis has decreased in length (previously measured 23.5 cm). CONCLUSION: 1. Greater than 14 cm long subcutaneous multiloculated fluid collection with peripheral flow located in the lateral mid thigh. Electronically signed by: Antonio Walton MD 03/13/2018 5:09 PM EDT
[2018-03-13] MEDS: Senna/Docusate Sodium 8.6/50 MG Tablet PO SCH (20:18)
[2018-03-14] MEDS: Zolpidem Tartrate 5 MG Tablet PO PRN ×2 (00:13→23:21)
[2018-03-14] MEDS: oxyCODONE/Acetaminophen 10/325 Tablet PO PRN ×6 (00:13→21:44)
[2018-03-14] MEDS: Ketorolac Inj 30 MG/ML (IVP) Vial IV.PUSH PRN ×4 (01:01→22:11)
[2018-03-14] MEDS: SODIUM CHLOR 0.9% IV.SIG SCH ×4 (02:00→18:33)
[2018-03-14] MEDS: AMIKACIN IV.SIG SCH ×4 (02:00→18:33)
[2018-03-14] MEDS: Morphine Inj 4 MG/ML Vial IV.PUSH PRN (02:00)
[2018-03-14 06:03] LABS: Baso % (Auto) 0.6 % (0.0-2.0); Eos # (Auto) 0.5 th/mm3 (0.0-0.4); Eos % (Auto) 6.3 % (0.0-4.0); Hematocrit 38.9 % (39.0-51.0); Hemoglobin 13.4 gm/dL (13.0-17.0); Lymph # (Auto) 1.4 th/mm3 (1.0-4.8); Lymph % (Auto) 16.9 % (9.0-44.0); Mean Corpuscular HGB Conc 34.3 % (32.0-36.0); Mean Corpuscular Hemoglobin 31.5 pg (27.0-34.0); Mean Corpuscular Volume 91.8 fL (80.0-100.0); Mean Platelet Volume 7.8 fL (7.0-11.0); Mono # (Auto) 0.9 th/mm3 (0.0-0.9); Mono % (Auto) 10.6 % (0.0-8.0); Neut # (Auto) 5.4 th/mm3 (1.8-7.7); Neut % (Auto) 65.6 % (16.0-70.0); Platelet Count 308 th/mm3 (150-450); Red Blood Count 4.24 mil/mm3 (4.50-5.90); Red Cell Distribution Width 12.8 % (11.6-17.2); White Blood Count 8.2 th/mm3 (4.0-11.0)
[2018-03-14 06:23] LABS: Calcium 7.6 mg/dL (8.5-10.1); Carbon Dioxide 28.7 meq/L (21.0-32.0); Potassium 4.6 meq/L (3.5-5.1)
[2018-03-14] MEDS: Senna/Docusate Sodium 8.6/50 MG Tablet PO SCH ×2 (08:13→21:44)
--- NOTE | 2018-03-14 15:24 | P.PN ---
Subjective Interval history: The patient is in bed he appears to not acute distress at this time. Still with significant pain in his thigh and significant swelling not getting better. Ultrasound of the thigh reveals reaccumulation of abscess. Reconsult IR for evaluation. Also Dr. Naun Worrell orthopedics following appreciate improved. Otherwise no fever or chills overnight. He is able to ambulate fairly well. Pain is fairly well controlled says that Toradol also helps. Physical Exam Vital signs: Vital Signs 03/13/18 16:00 03/13/18 19:31 03/13/18 20:00 Temperature 98.5 F 97.8 F Pulse Rate 75 68 Respiratory Rate 18 18 18 Blood Pressure 137/67 136/76 Pulse Oximetry 99 96 03/13/18 20:16 03/14/18 00:00 03/14/18 00:45 Temperature 98.6 F Pulse Rate 74 Respiratory Rate 17 18 17 Blood Pressure 135/59 L Pulse Oximetry 99 03/14/18 01:31 03/14/18 02:02 03/14/18 05:57 Temperature Pulse Rate Respiratory Rate 16 17 18 Blood Pressure Pulse Oximetry 03/14/18 08:00 03/14/18 12:00 Temperature 97.9 F 98.5 F Pulse Rate 78 75 Respiratory Rate 18 19 Blood Pressure 123/63 141/55 H Pulse Oximetry 99 97 Intake & Output 03/13/18 03/14/18 03/14/18 18:59 06:59 18:59 Intake Total 1124 / 1124 1062 / 1062 / 202 Balance 1124 / 1124 1062 / 1062 202 / 202 Weight 91.4 kg Intake: IV 404 / 404 302 / 302 202 / 202 Amikin Inj 500 MG In NS Inj 100 204 / 204 102 / 102 102 / 102 ML @ 200 mls/hr IV.SIG Q8H GAYLE Rx#:[id number] Mefoxin Inj 2 GM In NS Inj 100 200 / 200 200 / 200 100 / 100 ML @ 200 mls/hr IV.SIG Q6H GAYLE Rx#:[id number] Oral 720 / 720 760 / 760 Other: Post Void Residual 3 # Voids 5 Date of Last Bowel Movement 03/12/18 03/13/18 # Bowel Movements 1 Narrative: GENERAL: Well-nourished, well-developed patient in no apparent distress. CARDIOVASCULAR: Regular rate and rhythm. No murmurs, no rubs, no gallops. RESPIRATORY: No accessory muscle use. Clear to auscultation. Breath sounds equal bilaterally. GASTROINTESTINAL: Abdomen soft, non-tender, nondistended. Hepatic and splenic margins not palpable. MUSCULOSKELETAL: Left thigh noted with edema, worsening. There is a surgical incision to the lateral aspect, no drainage, sutures in place. Minimal erythema to the upper thigh. There is no areas of fluctuance. Skin feels warmer than right leg. Bilateral pedal pulses 2+. NEUROLOGICAL: Awake and alert and oriented 3. No obvious cranial nerve deficits. Motor grossly within normal limits. Five out of 5 muscle strength in the arms and legs. Normal speech. Results - Labs CBC & Chem 7: 03/14/18 04:12 03/14/18 04:12 Laboratory Results - last 24 hr 03/14/18 03/14/18 04:12 04:12 WBC 8.2 RBC 4.24 L Hgb 13.4 Hct 38.9 L MCV 91.8 MCH 31.5 MCHC 34.3 RDW 12.8 Plt Count 308 MPV 7.8 Neut % (Auto) 65.6 Lymph % (Auto) 16.9 [place] % (Auto) 10.6 H Eos % (Auto) 6.3 H Baso % (Auto) 0.6 Neut # (Auto) 5.4 Lymph # (Auto) 1.4 [place] # (Auto) 0.9 Eos # (Auto) 0.5 H Baso # (Auto) 0.0 WBC Differential . Differential Comment Auto diff final Sodium 142 Potassium 4.6 Chloride 106 Carbon Dioxide 28.7 Anion Gap 7 BUN 17 Creatinine 1.29 Estimated GFR 63 L Random Glucose 84 Calcium 7.6 L - Imaging Impressions Soft Tissue Ultrasound 03/13/18 00:00 CONCLUSION: 1. Greater than 14 cm long subcutaneous multiloculated fluid collection with peripheral flow located in the lateral mid thigh. - Procedures Left thigh abscess s/p aspiration with 40 cc clear fluid sent for analysis on by IR Assessment and Plan - Assessment (1) Acid fast bacillus Code(s): A31.9 - Mycobacterial infection, unspecified Status: Acute (2) Abscess of left thigh Code(s): L02.416 - Cutaneous abscess of left lower limb Status: Acute - Plan 37-year-old male, status post injury to left thigh from a "squat and sprint" injected himself with dexamethasone approximately 2 weeks ago. Developed fevers , was admitted on 03/03 and underwent I&D of left thigh infected seroma on 2017. Cultures came back positive for acid-fast bacilli. Left thigh abscess, status post I&D 03/04/2018. Cultures positive for acid-fast bacilli Patient injected himself with dexamethasone approximately 2 weeks ago [employer]. -Infectious disease has been consulted Left thigh MRI results noted --large enhancing edematous collection within the vastus lateralis muscle with very impressive surrounding soft tissue edema. There is also an elongated fluid collection deep to the fascia in the peripheral aspect of the mass, presumed abscess. What is unusual are areas of macroscopic fat within the collection, can be seen in patients with a resolving hematoma or possibly a hemorrhagic hemangioma. Similar to the recent CT scan. Orthopedic surgeon, Dr. Perez has been consulted. -Resume Percocet 10/325 1 tab p.o. every 6 as needed for pain. Add morphine for breakthrough pain this patient complains of pain. Add toradol IV for pain and inflammation Infectious disease consulted Dr. Peña evaluated patient IR consulted s/p aspiration with 40 cc clear fluid sent for analysis on 03/10/18 Antibiotics per infectious disease Repeat Wound cultured NTD. 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 Left side noted more edema 03/13. Plan to do repeat US left thigh to check for fluid reaccumulation / abscess. Discussed plan with the patient and also with ID specialist Dr Peña. Constipation continue bowel regimen. Add enema as need S/p L thigh US, patient with fluid reaccumulation/ fluid abscess by repeat US left thigh on 03/13. Reconsult IR for evaluation also ortho of ff. Discussed with the patient, at bedside, nurse MICHAEL plan: pending improvement and clearance by consultants S/p L thigh US, patient with fluid reaccumulation/ fluid abscess by repeat US left thigh on 03/13. Reconsult IR for evaluation also ortho of ff.
[2018-03-15] MEDS: oxyCODONE/Acetaminophen 10/325 Tablet PO PRN ×6 (01:56→22:46)
[2018-03-15] MEDS: SODIUM CHLOR 0.9% IV.SIG SCH ×3 (01:56→17:15)
[2018-03-15] MEDS: AMIKACIN IV.SIG SCH ×3 (01:56→17:15)
[2018-03-15] MEDS: Ketorolac Inj 30 MG/ML (IVP) Vial IV.PUSH PRN ×2 (08:01→17:11)
--- NOTE | 2018-03-15 08:53 | P.PN ---
Subjective Interval history: Pt seen and examined for f/u L thigh abscess. Pt's at the bedside. Both are very concerned that the patient is not really showing much improvement. In fact, the patient's feels that the redness around the incision is increasing and becoming more warm. The patient reports the swelling in his thigh now seems to be extending down into his ankle and foot. He reports significant limitation in flexing his left knee. He is bearing weight and ambulating but trying not to push it. He endorses significant pain in the area. Denies chills, fever, abdominal pain, nausea, or vomiting. Physical Exam Vital signs: Vital Signs 03/14/18 12:00 03/14/18 16:00 03/14/18 20:03 Temperature 98.5 F 98.2 F 98.5 F Pulse Rate 75 61 62 Respiratory Rate 19 18 18 Blood Pressure 141/55 H 138/75 110/57 L Pulse Oximetry 97 100 100 03/14/18 22:15 03/14/18 22:41 03/15/18 00:00 Temperature 98.0 F Pulse Rate 75 Respiratory Rate 18 18 18 Blood Pressure 104/56 L Pulse Oximetry 100 03/15/18 02:26 03/15/18 04:06 03/15/18 06:41 Temperature 97.6 F Pulse Rate 63 Respiratory Rate 17 20 18 Blood Pressure 125/65 Pulse Oximetry 97 03/15/18 08:00 Temperature 98.0 F Pulse Rate 81 Respiratory Rate 18 Blood Pressure 117/70 Pulse Oximetry 97 Intake & Output 03/14/18 03/15/18 03/15/18 18:59 06:59 18:59 Intake Total 1322 / 1322 1164 / 1164 Balance 1322 / 1322 1164 / 1164 Weight 91 kg Intake: IV 302 / 302 404 / 404 Amikin Inj 500 MG In NS Inj 100 102 / 102 204 / 204 ML @ 200 mls/hr IV.SIG Q8H GAYLE Rx#:[id number] Mefoxin Inj 2 GM In NS Inj 100 200 / 200 200 / 200 ML @ 200 mls/hr IV.SIG Q6H GAYLE Rx#:[id number] Oral 1020 / 1020 760 / 760 Other: # Voids 6 2 Date of Last Bowel Movement 03/13/18 # Bowel Movements 1 Narrative: GENERAL: WN, WD male resting in bed in NAD. SKIN: Warm and dry. HEENT: AT/NC. Pupils equal and round. MMM. HEART: RRR no m/r/g. LUNGS: CTAB without wheezes or crackles. ABDOMEN: +BS, soft, NT, ND. EXTREMITIES: Left lateral thigh incision with sutures in place, surrounding erythema, warmth, and tenderness. No drainage. Edema over L thigh, foot, and ankle. NEURO: Awake and alert. Results - Labs CBC & Chem 7: 03/14/18 04:12 03/15/18 05:28 Laboratory Results - last 24 hr 03/15/18 05:28 BUN 15 Creatinine 1.31 H Estimated GFR 62 L - Imaging Soft Tissue Ultrasound 03/13/18 00:00 CONCLUSION: 1. Greater than 14 cm long subcutaneous multiloculated fluid collection with peripheral flow located in the lateral mid thigh. - Procedures 03/10/18: US-guided aspiration of L thigh fluid collection, 40 cc clear fluid sent for analysis Assessment and Plan - Assessment (1) Acid fast bacillus Code(s): A31.9 - Mycobacterial infection, unspecified Status: Acute (2) Abscess of left thigh Code(s): L02.416 - Cutaneous abscess of left lower limb Status: Acute - Plan 37-year-old male w with no significant medical history admitted on 03/08 for left thigh abscess. Approximately two weeks prior he suffered an injury to his left thigh after exercising and subsequently injected dexamethasone on the left side. On 03/02, he started to develop fever and was seen in the ER and discharged. He returned back on 03/03 with recurrent fevers and a CT of the femur showed presumed subacute hemorrhage extending down the entire lateral left thigh along the inner aspect of the tensor fascia paco with additional subcutaneous and edema. Patient was admitted and seen by Dr. Perez who performed I&D of left thigh infected seroma on 03/04. Cultures were negative and the patient was discharged on Keflex on 03/05. The culture ended up growing acid fast organisms and the patient was contacted to return to the hospital. In the ED, he was afebrile and his labs were grossly unremarkable including lactic acid. MRI showed a large enhancing edematous collection within the vastus lateralis with impressive surrounding edema and presumed abscess deep to the fascia. 03/15: AFVSS. Worsening pain, swelling, and redness. Initially had order for IR drainage but discussed with Dr. Bragg who stated there were too numerous small fluid loculations for percutaneous drainage. Discussed with ortho, Dr. Perez who will reevaluate the patient tomorrow morning. In the meantime, will repeat MRI of the LLE to include the lower leg given swelling is extending distally. Will make the patient NPO after midnight should he need surgical debridement L thigh seroma/abscess Culture from 03/03 growing Mycobacterium abscessus IR consulted and patient underwent ultrasound-guided aspiration of the abscess. Repeat ultrasound on 03/13 showed greater than 14 cm long subcutaneous multiloculated fluid collection in the lateral mid thigh. D/W Dr. Bragg with IR and since not one large loculated abscess unless additional culture is needed drainage is not indicated. There are too numerous small loculations that would need to be drained if the goal were to provide decompression Culture from 03/09 with no growth. No acid-fast bacilli seen on smear. Mycobacterial culture pending Ortho consulted and at this time no further surgical intervention warranted at this time though still possible should he not progress with antibiotics or new culture returns positive ID consulted; continue cefoxitin, amikacin, and Biaxin while awaiting sensitivities from outside institution but can anticipate months of treatment Monitor renal function while on amikacin Pain control DVT prophylaxis: ambulating Code Status: FULL Discussed Condition With: Dr. Bragg, Dr. Perez, patient, RN, case management director Discharge Planning: When cleared by ortho and ID but patient will need long-term IV antibiotics on discharge.
[2018-03-15 09:22] LABS: Activated Partial Thrombo Time 28.8 sec (24.3-30.1); INR 1.1 Ratio; Prothrombin Time 10.7 sec (9.8-11.6)
[2018-03-15] MEDS: Senna/Docusate Sodium 8.6/50 MG Tablet PO SCH ×2 (10:22→22:47)
[2018-03-15] MEDS ORDERED: diazePAM 5 MG Tablet PO ONE (15:02)
--- NOTE | 2018-03-15 15:31 | P.PNID ---
Subjective Remarks: Patient still has severe pain at the left thigh. afebrile. Wound culture identified as mycobacterium abscessus. Sensitivity pending. Ultrasound of the left thigh shows multiloculated collections in the thigh. Patient is going for MRI of the left thigh now. Erythema over the surgical incision. This is a 37-year-old white male who initially presented to [facility] on 03/02/2018 with left thigh pain and swelling. The patient was noted to have subacute hemorrhage extending down to the entire left lateral thigh along the inner aspect of the tensor fascia paco and subcutaneous edema. The patient underwent surgical incision and excisional debridement of left thigh infected seroma. Culture was taken. At the time, he was in the hospital, he had elevated temperature up to 101.9 degrees. The patient was discharged home on oral antibiotics. He came back to the emergency department yesterday again for evaluation of the same problem and was told that the culture was growing acid fast organisms and that he needed to come back for further evaluation. MRI was repeated and it came back showing large enhancing fluid collection within the vastus lateralis muscle with very impressive surrounding soft tissue edema and elongated fluid collection deep into the fascia in the peritoneal aspect of the mass, presumed to be abscess. Patient reported injecting the left thigh with muscle building substance. Allergies/Adverse Reactions: Allergies adhesive tape Allergy (Verified 03/03/18 16:11) Rash Objective Vital Signs 03/14/18 16:00 03/14/18 20:03 03/14/18 22:15 Temperature 98.2 F 98.5 F Pulse Rate 61 62 Respiratory Rate 18 18 18 Blood Pressure 138/75 110/57 L Pulse Oximetry 100 100 03/14/18 22:41 03/15/18 00:00 03/15/18 02:26 Temperature 98.0 F Pulse Rate 75 Respiratory Rate 18 18 17 Blood Pressure 104/56 L Pulse Oximetry 100 03/15/18 04:06 03/15/18 06:41 03/15/18 08:00 Temperature 97.6 F 98.0 F Pulse Rate 63 81 Respiratory Rate 20 18 18 Blood Pressure 125/65 117/70 Pulse Oximetry 97 97 03/15/18 12:00 Temperature 98.5 F Pulse Rate 79 Respiratory Rate 18 Blood Pressure 134/68 Pulse Oximetry 100 Intake & Output 03/14/18 03/15/18 03/15/18 18:59 06:59 18:59 Intake Total 1322 / 1322 1164 / 1164 / 202 Balance 1322 / 1322 1164 / 1164 202 / 202 Weight 91 kg Intake: IV 302 / 302 404 / 404 / 202 Amikin Inj 500 MG In NS Inj 100 102 / 102 204 / 204 102 / 102 ML @ 200 mls/hr IV.SIG Q8H GAYLE Rx#:[id number] Mefoxin Inj 2 GM In NS Inj 100 200 / 200 200 / 200 100 / 100 ML @ 200 mls/hr IV.SIG Q6H GAYLE Rx#:[id number] Oral 1020 / 1020 760 / 760 Other: # Voids 6 2 Date of Last Bowel Movement 03/13/18 # Bowel Movements 1 Lab - Hematology Results 03/14/18 04:12 WBC 8.2 RBC 4.24 L Hgb 13.4 Hct 38.9 L MCV 91.8 MCH 31.5 MCHC 34.3 RDW 12.8 Plt Count 308 MPV 7.8 Neut % (Auto) 65.6 Lymph % (Auto) 16.9 [place] % (Auto) 10.6 H Eos % (Auto) 6.3 H Baso % (Auto) 0.6 Neut # (Auto) 5.4 Lymph # (Auto) 1.4 [place] # (Auto) 0.9 Eos # (Auto) 0.5 H Baso # (Auto) 0.0 WBC Differential . Differential Comment Auto diff final Lab - Chemistry Results 03/14/18 03/15/18 04:12 05:28 Sodium 142 Potassium 4.6 Chloride 106 Carbon Dioxide 28.7 Anion Gap 7 BUN 17 15 Creatinine 1.29 1.31 H Estimated GFR 63 L 62 L Random Glucose 84 Calcium 7.6 L Imaging: ITS Impressions Femur MRI 03/08/18 14:00 CONCLUSION: 1. There is a large enhancing edematous collection within the vastus lateralis muscle with very impressive surrounding soft tissue edema. There is also an elongated fluid collection deep to the fascia in the peripheral aspect of the mass, presumed abscess. What is unusual are areas of macroscopic fat within the collection, can be seen in patients with a resolving hematoma or possibly a hemorrhagic hemangioma. Similar to the recent CT scan. Needle Aspiration US 03/09/18 00:00 CONCLUSION: Successful aspiration of a fluid collection from the lateral aspect of the thigh. Soft Tissue Ultrasound 03/13/18 00:00 CONCLUSION: 1. Greater than 14 cm long subcutaneous multiloculated fluid collection with peripheral flow located in the lateral mid thigh. Physical Exam: PHYSICAL EXAMINATION: GENERAL: No acute distress. Awake and alert and oriented. HEENT: Head atraumatic. Extraocular movements grossly intact. Pupils reactive to light. No icterus. Oropharynx: Moist mucosa. No visible lesions. NECK: Supple without adenopathy. LUNGS: Clear breath sounds. HEART: Regular S1, S2, without murmurs, rubs or gallops. ABDOMEN: Bowel sounds present. flat. Soft, nontender. EXTREMITIES: Left thigh is swollen and the surgical incision at the lateral aspect which now has erythema. The lateral left thigh is very warm. Edema is decreased at the distal thigh. Swelling at the left leg is decreased. SKIN: No rash. NEUROLOGIC: No gross focal finding. PSYCHIATRIC: Calm and cooperative. Assessment and Plan - Plan IMPRESSION: Extensive soft tissue infection/abscess involving the left thigh and vastus lateralis muscle. 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 RECOMMENDATIONS: Continue Cefoxitin and Amikacin IV. Continue Biaxin. Await sensitivity from [facility] to determine course of treatment. (Microbiology has contact info) I have spoken to microbiology To notify the caregivers as soon as they have information on the sensitivity. Patient has [employer] benefits and will need to follow-up with the infectious disease clinic at the [place] after discharge. It is anticipated that this infection will need to be treated for months. Explained to the patient. If there is significant fluid collection noted on the MRI he may need additional surgical drainage or debridement. Check with microbiology for the results of sensitivity information on the organism. I will be off from 03/16 through 03/23, other ID MD covering in my absence.
[2018-03-15] MEDS ORDERED: Gadobutrol PF 10 MMOL/10 ML Vial (for RAD) IV.SIG ONE (16:06)
--- NOTE | 2018-03-15 17:35 | MR ---
EXAM DATE: 03/15/2018 2:54 PM EDT AGE/SEX: 38 years / Male INDICATIONS: Left lower leg edema. CLINICAL DATA: This is the patient's initial encounter. Patient reports that signs and symptoms have been present for 2 weeks and indicates a pain score of 6/10. MEDICAL/SURGICAL HISTORY: None. . Left thigh sx. COMPARISON: [facility], MR THIGH LEFT W & W/O CONTRAST, 03/08/2018. [facility], CT FEMUR LEFT W CONTRAST, 02/13. . TECHNIQUE: Multiplanar, multisequence MRI examination was performed without and with ml Gadavist (ga dobutrol) contrast as single exam dose. FINDINGS: Bones: The osseous structures are in normal alignment. No evidence of fracture or bony edema. Muscle: Normal signal without evidence of edema, hemorrhage or atrophy. Soft Tissues: Diffuse cellulitis is noted throughout the visualized portion of the left lower leg fr om the knee to the ankle. Other: The neurovascular structures are intact. CONCLUSION: 1. Few cellulitis noted throughout the visualized portion of the left lower leg from the knee to the ankle. 2. No evidence of deep soft tissue abscess or marrow edema to suggest osteomyelitis. Electronically signed by: Brian Starks MD 03/15/2018 5:34 PM EDT
[2018-03-16] MEDS: SODIUM CHLOR 0.9% IV.SIG SCH (01:01)
[2018-03-16] MEDS: AMIKACIN IV.SIG SCH (01:01)
[2018-03-16] MEDS: oxyCODONE/Acetaminophen 10/325 Tablet PO PRN ×5 (03:17→21:38)
[2018-03-16] MEDS: Morphine Inj 4 MG/ML Vial IV.PUSH PRN ×2 (05:49→23:22)
[2018-03-16] MEDS: Senna/Docusate Sodium 8.6/50 MG Tablet PO SCH ×2 (08:16→21:38)
--- NOTE | 2018-03-16 10:22 | P.PN ---
Subjective Interval history: Follow-up for left lower extremity abscess s/p US guided aspiration. Patient seen and examined in bed with at bedside appears to be in no acute distress. reports concerns over ongoing erythema and swelling around thighs as well as left leg and ankle. Patient denies any fevers, chills, nausea , vomiting, diarrhea, cough, shortness of breath or chest pain. Patient reports he has not had anything to eat since midnight, would like to know if he will be going to surgery today. He also has concerns over dehydration secondary to being n.p.o. complains of thigh burning and some warmth although this has improved around the knee area. Physical Exam Vital signs: Vital Signs 03/15/18 12:00 03/15/18 20:00 03/15/18 23:45 Temperature 98.5 F 98.5 F 98.1 F Pulse Rate 79 71 76 Respiratory Rate 18 18 18 Blood Pressure 134/68 128/73 125/73 Pulse Oximetry 100 98 97 03/16/18 07:45 03/16/18 10:01 Temperature 98.4 F Pulse Rate 81 Respiratory Rate 16 18 Blood Pressure 117/63 Pulse Oximetry 98 Intake & Output 03/15/18 03/16/18 03/16/18 18:59 06:59 18:59 Intake Total 404 / 404 302 / 302 Balance 404 / 404 302 / 302 Weight 89.4 kg Intake: IV 404 / 404 302 / 302 Amikin Inj 500 MG In NS Inj 100 204 / 204 102 / 102 ML @ 200 mls/hr IV.SIG Q8H GAYLE Rx#:[id number] Mefoxin Inj 2 GM In NS Inj 100 200 / 200 200 / 200 ML @ 200 mls/hr IV.SIG Q6H GAYLE Rx#:[id number] Other: # Voids 3 0 Date of Last Bowel Movement 03/15/18 03/15/18 Narrative: GENERAL: Well-nourished, well-developed patient in no apparent distress. CARDIOVASCULAR: Regular rate and rhythm. No murmurs, no rubs, no gallops. RESPIRATORY: No accessory muscle use. Clear to auscultation. Breath sounds equal bilaterally. GASTROINTESTINAL: Abdomen soft, non-tender, nondistended. + bowel sounds. MUSCULOSKELETAL: Left thigh noted with edema, erythema, warmth. There is a surgical incision to the lateral aspect, no drainage, sutures in place. There is no areas of fluctuance. Bilateral pedal pulses 2+. Left leg trace edema, left ankle +1 edema. NEUROLOGICAL: Awake and alert and oriented 3. No obvious cranial nerve deficits. Motor grossly within normal limits. Five out of 5 muscle strength in the arms and legs. Normal speech. Results - Labs CBC & Chem 7: 03/14/18 04:12 03/16/18 06:20 Laboratory Results - last 24 hr 03/16/18 06:20 BUN 17 Creatinine 1.87 H Estimated GFR 41 L - Imaging Impressions Lower Extremity MRI 03/15/18 00:00 CONCLUSION: 1. Few cellulitis noted throughout the visualized portion of the left lower leg from the knee to the ankle. 2. No evidence of deep soft tissue abscess or marrow edema to suggest osteomyelitis. - Procedures 03/10/18: US-guided aspiration of L thigh fluid collection, 40 cc clear fluid sent for analysis Assessment and Plan - Assessment (1) Acid fast bacillus Code(s): A31.9 - Mycobacterial infection, unspecified Status: Acute (2) Abscess of left thigh Code(s): L02.416 - Cutaneous abscess of left lower limb Status: Acute - Plan 37-year-old male w with no significant medical history admitted on 03/08 for left thigh abscess. Approximately two weeks prior he suffered an injury to his left thigh after exercising and subsequently injected dexamethasone on the left side. On 03/02, he started to develop fever and was seen in the ER and discharged. He returned back on 03/03 with recurrent fevers and a CT of the femur showed presumed subacute hemorrhage extending down the entire lateral left thigh along the inner aspect of the tensor fascia paco with additional subcutaneous and edema. Patient was admitted and seen by Dr. Perez who performed I&D of left thigh infected seroma on 03/04. Cultures were negative and the patient was discharged on Keflex on 03/05. The culture ended up growing acid fast organisms and the patient was contacted to return to the hospital. In the ED, he was afebrile and his labs were grossly unremarkable including lactic acid. MRI showed a large enhancing edematous collection within the vastus lateralis with impressive surrounding edema and presumed abscess deep to the fascia. 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 Repeat ultrasound on 03/13 showed greater than 14 cm long subcutaneous multiloculated fluid collection in the lateral mid thigh. Per Dr. Bragg with IR and since not one large loculated abscess unless additional culture is needed drainage is not indicated. There are too numerous small loculations that would need to be drained if the goal were to provide decompression Culture from 03/09 with no growth. No acid-fast bacilli seen on smear. Mycobacterial culture pending Ortho consulted repeat MRI of LLE with few cellulitis noted throughout the visualized portion of left lower neck from knee to ankle. No evidence of soft tissue abscess or marrow edema to suggest osteomyelitis. -Pending ortho evaluation once again for possible intervention. IR not able to drain at this time. ID consulted; continue cefoxitin, amikacin, and Biaxin while awaiting sensitivities from outside institution but can anticipate months of treatment Monitor renal function while on amikacin, slight increase in creatinine, amikacin adjusted. Pain control DVT prophylaxis: ambulating Discussed Condition With: Patient, RN, . Discharge Planning: Will need antibiotics for prolonged period, will need PICC and ID recommendations.
[2018-03-16] MEDS ORDERED: Lidocaine PF 1% Inj 5 ML Syringe OTHER ONE (13:15)
--- NOTE | 2018-03-16 15:59 | P.PNOP ---
Subjective Interval history: Patient resting comfortably. Denies fevers, chills. Reports mildly increased erythema left thigh around incision Physical Exam Vital signs: Vital Signs 03/15/18 20:00 03/15/18 23:45 03/16/18 07:45 Temperature 98.5 F 98.1 F 98.4 F Pulse Rate 71 76 81 Respiratory Rate 18 18 16 Blood Pressure 128/73 125/73 117/63 Pulse Oximetry 98 97 98 03/16/18 10:01 03/16/18 12:00 03/16/18 13:34 Temperature 98.2 F Pulse Rate 76 Respiratory Rate 18 17 18 Blood Pressure 133/77 Pulse Oximetry 97 Intake & Output 03/15/18 03/16/18 03/16/18 18:59 06:59 18:59 Intake Total 404 / 404 302 / 302 100 / 100 Balance 404 / 404 302 / 302 100 / 100 Weight 89.4 kg Intake: IV 404 / 404 302 / 302 100 / 100 Amikin Inj 500 MG In NS Inj 100 204 / 204 102 / 102 ML @ 200 mls/hr IV.SIG Q8H GAYLE Rx#:[id number] Mefoxin Inj 2 GM In NS Inj 100 200 / 200 200 / 200 100 / 100 ML @ 200 mls/hr IV.SIG Q6H GAYLE Rx#:[id number] Other: # Voids 3 0 Date of Last Bowel Movement 03/15/18 03/15/18 Narrative: Awake, alert, NAD LLE: previous incision well sealed without expressible drainage. Sutures remain in place. Mildly increased erythema around incision with TTP. NVI. Negative Homans. BCR Results - Labs CBC & Chem 7: 03/14/18 04:12 03/16/18 06:20 Laboratory Results - last 24 hr 03/16/18 06:20 BUN 17 Creatinine 1.87 H Estimated GFR 41 L Microbiology 03/09/18 14:35 Fluid - Other Acid Fast Bacilli Smear - Final No acid fast bacilli seen 03/09/18 14:35 Fluid - Other Mycobacterial Culture - Preliminary No growth in 1 week - Imaging Impressions Lower Extremity MRI 03/15/18 00:00 CONCLUSION: 1. Few cellulitis noted throughout the visualized portion of the left lower leg from the knee to the ankle. 2. No evidence of deep soft tissue abscess or marrow edema to suggest osteomyelitis. 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 Options of management were discussed with the patient. Given his persistent and/ or recurrent fluid collection with +cultures I did discuss the option of repeat I&D of the left thigh. I did also discuss the option of continued nonoperative management with IV abx and observation. However, given his +cultures and persistent fluid collection I certainly believe a repeat I&D give him the best chance of eradicating the infection. Risks, benefits, alternatives were discussed. Risks including but not limited to : persistent or recurrent infection, persistent thigh pain/swelling, possible need for further surgery, and other unforeseen complications were all discussed with the patient. At this time he does wish to proceed with the above mentioned procedure. Patient has been NPO since midnight.
[2018-03-16] MEDS ORDERED: Post-op Orders (for Pharmacy) OTHER STA (17:05)
--- NOTE | 2018-03-16 17:05 | P.BOP ---
Date of procedure: 03/16/18 Procedure: Repeat irrigation and debridement left thigh Anesthesia: GETA Surgeon: Antonella Perez MD Estimated blood loss (mL): 150 Pathology: none sent Condition: stable Disposition: PACU
[2018-03-16] MEDS ORDERED: *Meperidine Inj 25 MG/ML Vial PERIprocedural Use ONLY ONE (17:19)
[2018-03-16] MEDS ORDERED: *morphine SULFATE 4 MG/ML PERIprocedure ONLY ONE ×2 (17:27→17:43)
[2018-03-16] MEDS ORDERED: Morphine Inj 4 MG/ML Vial ONE (17:30)
[2018-03-16] MEDS ORDERED: fentaNYL Citrate Inj 100 MCG/2 ML Ampul ONE (17:30)
[2018-03-16] MEDS: Zolpidem Tartrate 5 MG Tablet PO PRN (23:29)
[2018-03-17] MEDS: oxyCODONE/Acetaminophen 10/325 Tablet PO PRN ×6 (01:39→22:29)
[2018-03-17] MEDS: Morphine Inj 4 MG/ML Vial IV.PUSH PRN (06:40)
[2018-03-17] MEDS: SODIUM CHLOR 0.9% IV.SIG SCH (08:53)
[2018-03-17] MEDS: Senna/Docusate Sodium 8.6/50 MG Tablet PO SCH ×2 (08:53→20:20)
[2018-03-17] MEDS: AMIKACIN IV.SIG SCH (08:53)
--- NOTE | 2018-03-17 09:24 | P.PN ---
Subjective Interval history: Follow-up for left lower extremity abscess s/p US guided aspiration. Patient is status post repeat irrigation and debridement of left thigh on 03/[address] Perez. Patient is seen and examined resting in bed with at bedside. Complains of severe left thigh pain, reports that pain is throbbing and burning. Patient states that he is taking his scheduled oral pain medication as well as breakthrough medication with no pain relief. Patient denies any fevers, chills, nausea, vomiting, shortness of breath or cough. He does endorse some constipation but realizes this may be a side effect of pain medication. would like to know when patient should become more physically active. Discussed getting out of bed to recliner at the very least today. Called microbiology, still no results from culture sent out to [facility]. Physical Exam Vital signs: Vital Signs 03/16/18 10:01 03/16/18 12:00 03/16/18 13:34 Temperature 98.2 F Pulse Rate 76 Respiratory Rate 18 17 18 Blood Pressure 133/77 Pulse Oximetry 97 03/16/18 17:18 03/16/18 17:30 03/16/18 17:45 Temperature 99 F 98.4 F Pulse Rate 111 H 100 H 98 H Respiratory Rate 20 18 14 Blood Pressure 145/83 H 132/70 130/71 Pulse Oximetry 97 97 98 03/16/18 20:00 03/17/18 00:00 Temperature 98.2 F 98.7 F Pulse Rate 94 H 93 H Respiratory Rate 18 18 Blood Pressure 120/68 117/62 Pulse Oximetry 98 97 Intake & Output 03/16/18 03/17/18 03/17/18 18:59 06:59 18:59 Intake Total 1100 / 1100 200 / 200 Output Total 150 / 150 2425 / 2425 Balance 950 / 950 -2225 / -2225 Weight 90.7 kg Intake: IV 200 / 200 200 / 200 Mefoxin Inj 2 GM In NS Inj 100 200 / 200 200 / 200 ML @ 200 mls/hr IV.SIG Q6H GAYLE Rx#:[id number] Oral 0 / 0 Anesthesia Amount 900 / 900 Output: Urine 2400 / 2400 Estimated Blood Loss 150 / 150 Wound Drainage # 1 Left Thigh BENITA Drain Other: # Voids 1 Date of Last Bowel Movement 03/15/18 03/16/18 # Bowel Movements 0 Narrative: GENERAL: Well-nourished, well-developed patient in visible pain and discomfort. CARDIOVASCULAR: Regular rate and rhythm. No murmurs, no rubs, no gallops. RESPIRATORY: No accessory muscle use. Clear to auscultation. Breath sounds equal bilaterally. GASTROINTESTINAL: Abdomen soft, non-tender, nondistended. + bowel sounds. MUSCULOSKELETAL: Left thigh with YULIA wrap in place and BENITA drain (scant amount of sanguineus drainage in BENITA drain). Bilateral pedal pulses 2+. Left ankle +1 edema. NEUROLOGICAL: Awake and alert and oriented 3. No obvious cranial nerve deficits. Motor grossly within normal limits. Five out of 5 muscle strength in the arms and right leg. Normal speech. Results - Labs CBC & Chem 7: 03/14/18 04:12 03/17/18 06:38 Laboratory Results - last 24 hr 03/17/18 06:38 BUN 16 Creatinine 1.60 H Estimated GFR 49 L Microbiology 03/09/18 14:35 Fluid - Other Acid Fast Bacilli Smear - Final No acid fast bacilli seen 03/09/18 14:35 Fluid - Other Mycobacterial Culture - Preliminary No growth in 1 week - Procedures 03/10/18: US-guided aspiration of L thigh fluid collection, 40 cc clear fluid sent for analysis Assessment and Plan - Assessment (1) Acid fast bacillus Code(s): A31.9 - Mycobacterial infection, unspecified Status: Acute (2) Abscess of left thigh Code(s): L02.416 - Cutaneous abscess of left lower limb Status: Acute - Plan 37-year-old male w with no significant medical history admitted on 03/08 for left thigh abscess. Approximately two weeks prior he suffered an injury to his left thigh after exercising and subsequently injected dexamethasone on the left side. On 03/02, he started to develop fever and was seen in the ER and discharged. He returned back on 03/03 with recurrent fevers and a CT of the femur showed presumed subacute hemorrhage extending down the entire lateral left thigh along the inner aspect of the tensor fascia paco with additional subcutaneous and edema. Patient was admitted and seen by Dr. Perez who performed I&D of left thigh infected seroma on 03/04. Cultures were negative and the patient was discharged on Keflex on 03/05. The culture ended up growing acid fast organisms and the patient was contacted to return to the hospital. In the ED, he was afebrile and his labs were grossly unremarkable including lactic acid. MRI showed a large enhancing edematous collection within the vastus lateralis with impressive surrounding edema and presumed abscess deep to the fascia. 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 Repeat ultrasound on 03/13 showed greater than 14 cm long subcutaneous multiloculated fluid collection in the lateral mid thigh. Per Dr. Bragg with IR and since not one large loculated abscess unless additional culture is needed drainage is not indicated. There are too numerous small loculations that would need to be drained if the goal were to provide decompression Culture from 03/09 with no growth. No acid-fast bacilli seen on smear. Mycobacterial culture pending Ortho consulted repeat MRI of LLE with few cellulitis noted throughout the visualized portion of left lower neck from knee to ankle. No evidence of soft tissue abscess or marrow edema to suggest osteomyelitis. -S/p repeat irrigation and debridement of left thigh by 03/16 ID following, currently on cefoxitin, amikacin, and Biaxin while awaiting sensitivities from outside institution but can anticipate months of treatment. Called Microbiology department, but still no results from culture. Monitor renal function while on amikacin. C/o significant pain, switch Morphine to IV Dilaudid for breakthrough pain. DVT prophylaxis: ambulating Discussed Condition With: Patient, , RN, microbiology department. Discharge Planning: Will need antibiotics for prolonged period, will need PICC and ID recommendations.
[2018-03-17] MEDS: HYDROmorphone PF Inj 2 MG/ML Vial IV.PUSH PRN ×2 (11:16→20:20)
[2018-03-17] MEDS: Zolpidem Tartrate 5 MG Tablet PO PRN (22:29)
[2018-03-18] MEDS: HYDROmorphone PF Inj 2 MG/ML Vial IV.PUSH PRN ×6 (00:46→21:52)
[2018-03-18] MEDS: oxyCODONE/Acetaminophen 10/325 Tablet PO PRN ×5 (02:35→20:05)
[2018-03-18] MEDS: SODIUM CHLOR 0.9% IV.SIG SCH ×2 (08:28→20:06)
[2018-03-18] MEDS: AMIKACIN IV.SIG SCH (08:28)
[2018-03-18] MEDS: Senna/Docusate Sodium 8.6/50 MG Tablet PO SCH ×2 (08:31→20:05)
[2018-03-18] MEDS ORDERED: Pharmacy Ordered Lab Info OTHER ONE (08:45)
--- NOTE | 2018-03-18 13:23 | P.PN ---
Subjective Interval history: Follow-up visit for left thigh abscess status post repeat irrigation and debridement. Patient is seen and examined sitting up in recliner in no acute distress. Patient reports that last night had twitching spasms of left leg. Believes that this may be related to the fact that he gets very tense as he does not want to move his left leg very much. Continues to have left thigh pain although this is improved compared to yesterday, states that IV medication helps. Discussed with patient low-grade fever patient does endorse sweats overnight and today. He denies any nausea, vomiting, diarrhea, cough, shortness of breath or chest pain. Patient does endorse constipation, discussed as needed laxatives available to him. Physical Exam Vital signs: Vital Signs 03/17/18 16:00 03/17/18 19:43 03/18/18 00:00 Temperature 98.8 F 100.0 F H 97.9 F Pulse Rate 84 88 81 Respiratory Rate 19 17 19 Blood Pressure 121/81 117/64 115/68 Pulse Oximetry 94 L 98 96 03/18/18 08:00 03/18/18 12:00 Temperature 98.6 F 98.2 F Pulse Rate 87 87 Respiratory Rate 18 17 Blood Pressure 132/78 123/74 Pulse Oximetry 97 96 Intake & Output 03/17/18 03/18/18 03/18/18 18:59 06:59 18:59 Intake Total 902 / 902 1700 / 1700 Output Total 1010 / 1010 Balance 882 / 882 690 / 690 / Weight 90.8 kg Intake: IV 302 / 302 200 / 200 Amikin Inj 500 MG In NS Inj 100 102 / 102 102 / 102 ML @ 200 mls/hr IV.SIG Q24H GAYLE Rx#:[id number] Mefoxin Inj 2 GM In NS Inj 100 200 / 200 200 / 200 100 / 100 ML @ 200 mls/hr IV.SIG Q6H GAYLE Rx#:[id number] Oral 600 / 600 1500 / 1500 Output: Urine 1000 / 1000 Wound Drainage # 1 Left Thigh BENITA Drain Other: # Voids 3 Date of Last Bowel Movement 03/16/18 03/16/18 03/17/18 # Bowel Movements 0 Narrative: GENERAL: Well-nourished, well-developed patient in visible pain and discomfort. CARDIOVASCULAR: Regular rate and rhythm. No murmurs, no rubs, no gallops. RESPIRATORY: No accessory muscle use. Clear to auscultation. Breath sounds equal bilaterally. GASTROINTESTINAL: Abdomen soft, non-tender, nondistended. + bowel sounds. MUSCULOSKELETAL: Left thigh with YULIA wrap in place and BENITA drain (scant amount of sanguineus drainage in BENITA drain). Bilateral pedal pulses 2+. Left ankle +1 edema. NEUROLOGICAL: Awake and alert and oriented 3. No obvious cranial nerve deficits. Motor grossly within normal limits. Five out of 5 muscle strength in the arms and right leg. Normal speech. Results - Labs CBC & Chem 7: 03/14/18 04:12 03/17/18 06:38 - Procedures 03/10/18: US-guided aspiration of L thigh fluid collection, 40 cc clear fluid sent for analysis Assessment and Plan - Assessment (1) Acid fast bacillus Code(s): A31.9 - Mycobacterial infection, unspecified Status: Acute (2) Abscess of left thigh Code(s): L02.416 - Cutaneous abscess of left lower limb Status: Acute - Plan 37-year-old male w with no significant medical history admitted on 03/08 for left thigh abscess. Approximately two weeks prior he suffered an injury to his left thigh after exercising and subsequently injected dexamethasone on the left side. On 03/02, he started to develop fever and was seen in the ER and discharged. He returned back on 03/03 with recurrent fevers and a CT of the femur showed presumed subacute hemorrhage extending down the entire lateral left thigh along the inner aspect of the tensor fascia paco with additional subcutaneous and edema. Patient was admitted and seen by Dr. Perez who performed I&D of left thigh infected seroma on 03/04. Cultures were negative and the patient was discharged on Keflex on 03/05. The culture ended up growing acid fast organisms and the patient was contacted to return to the hospital. In the ED, he was afebrile and his labs were grossly unremarkable including lactic acid. MRI showed a large enhancing edematous collection within the vastus lateralis with impressive surrounding edema and presumed abscess deep to the fascia. 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 Repeat ultrasound on 03/13 showed greater than 14 cm long subcutaneous multiloculated fluid collection in the lateral mid thigh. Per Dr. Bragg with IR and since not one large loculated abscess unless additional culture is needed drainage is not indicated. There are too numerous small loculations that would need to be drained if the goal were to provide decompression Culture from 03/09 with no growth. No acid-fast bacilli seen on smear. Mycobacterial culture pending Ortho consulted repeat MRI of LLE with few cellulitis noted throughout the visualized portion of left lower neck from knee to ankle. No evidence of soft tissue abscess or marrow edema to suggest osteomyelitis. -S/p repeat irrigation and debridement of left thigh by 03/16, BENITA drain to be removed today -T-max overnight 100.0 ID following, currently on cefoxitin, amikacin, and Biaxin while awaiting sensitivities from outside institution but can anticipate months of treatment. Call placed to microbiology department 03/17, but still no results from culture. -ID has placed Amikacin on hold and added Primaxin, UA and eos ordered -hold off on PICC due to low grad temp. Continue oral pain medication with IV Dilaudid for breakthrough pain. Add as needed baclofen for spasms DVT prophylaxis: ambulating Discussed Condition With: Discussed with patient, RN, at bedside. Discharge Planning: Will need antibiotics for prolonged period, will need PICC and ID recommendations.
--- NOTE | 2018-03-18 13:49 | P.PNID ---
Subjective Remarks: ID COVERAGE Notes reviewed One low grade temps yesterday No complaints [place] has been rising NO diarrhea No GI complaints No dizziness, tinnitus or hearing loss No rash or itching This is a 37-year-old white male who initially presented to [facility] on 03/02/2018 with left thigh pain and swelling. The patient was noted to have subacute hemorrhage extending down to the entire left lateral thigh along the inner aspect of the tensor fascia paco and subcutaneous edema. The patient underwent surgical incision and excisional debridement of left thigh infected seroma. Culture was taken. At the time, he was in the hospital, he had elevated temperature up to 101.9 degrees. The patient was discharged home on oral antibiotics. He came back to the emergency department yesterday again for evaluation of the same problem and was told that the culture was growing acid fast organisms and that he needed to come back for further evaluation. MRI was repeated and it came back showing large enhancing fluid collection within the vastus lateralis muscle with very impressive surrounding soft tissue edema and elongated fluid collection deep into the fascia in the peritoneal aspect of the mass, presumed to be abscess. The culture which was taken previously has acid fast bacteria. tang blood cell count is normal. He denies other symptoms. Antibiotics: Amikacin Biaxin cefoxitin Allergies/Adverse Reactions: Allergies adhesive tape Allergy (Verified 03/03/18 16:11) Rash Objective Vital Signs 03/17/18 16:00 03/17/18 19:43 03/18/18 00:00 Temperature 98.8 F 100.0 F H 97.9 F Pulse Rate 84 88 81 Respiratory Rate 19 17 19 Blood Pressure 121/81 117/64 115/68 Pulse Oximetry 94 L 98 96 03/18/18 08:00 03/18/18 12:00 Temperature 98.6 F 98.2 F Pulse Rate 87 87 Respiratory Rate 18 17 Blood Pressure 132/78 123/74 Pulse Oximetry 97 96 Intake & Output 03/17/18 03/18/18 03/18/18 18:59 06:59 18:59 Intake Total 902 / 902 1700 / 1700 Output Total 1010 / 1010 Balance 882 / 882 690 / 690 Weight 90.8 kg Intake: IV 302 / 302 200 / 200 Amikin Inj 500 MG In NS Inj 100 102 / 102 102 / 102 ML @ 200 mls/hr IV.SIG Q24H GAYLE Rx#:[id number] Mefoxin Inj 2 GM In NS Inj 100 200 / 200 200 / 200 100 / 100 ML @ 200 mls/hr IV.SIG Q6H GAYLE Rx#:[id number] Oral 600 / 600 1500 / 1500 Output: Urine 1000 / 1000 Wound Drainage # 1 Left Thigh BENITA Drain Other: # Voids 3 Date of Last Bowel Movement 03/16/18 03/16/18 03/17/18 # Bowel Movements 0 03/09/18 14:35 Fluid - Other Acid Fast Bacilli Smear - Final No acid fast bacilli seen 03/09/18 14:35 Fluid - Other Mycobacterial Culture - Preliminary No growth in 1 week Lab - Chemistry Results 03/17/18 06:38 BUN 16 Creatinine 1.60 H Estimated GFR 49 L Imaging: ITS Impressions Femur MRI 03/08/18 14:00 CONCLUSION: 1. There is a large enhancing edematous collection within the vastus lateralis muscle with very impressive surrounding soft tissue edema. There is also an elongated fluid collection deep to the fascia in the peripheral aspect of the mass, presumed abscess. What is unusual are areas of macroscopic fat within the collection, can be seen in patients with a resolving hematoma or possibly a hemorrhagic hemangioma. Similar to the recent CT scan. Needle Aspiration US 03/09/18 00:00 CONCLUSION: Successful aspiration of a fluid collection from the lateral aspect of the thigh. Soft Tissue Ultrasound 03/13/18 00:00 CONCLUSION: 1. Greater than 14 cm long subcutaneous multiloculated fluid collection with peripheral flow located in the lateral mid thigh. Lower Extremity MRI 03/15/18 00:00 CONCLUSION: 1. Few cellulitis noted throughout the visualized portion of the left lower leg from the knee to the ankle. 2. No evidence of deep soft tissue abscess or marrow edema to suggest osteomyelitis. Physical Exam: PHYSICAL EXAMINATION: GENERAL: No acute distress. Awake and alert and oriented. HEENT: Head atraumatic. Extraocular movements grossly intact. Pupils reactive to light. No icterus. Oropharynx: Moist mucosa. No visible lesions. NECK: Supple without adenopathy. LUNGS: Clear to auscultation. HEART: Regular S1, S2, without murmurs, rubs or gallops. ABDOMEN: Bowel sounds present. flat. Soft, nontender. EXTREMITIES: Left thigh with dry and intact dressing, swollen is swollen and there is a surgical incision . Mild erythema at the L leg posteriorly SKIN: No rash. NEUROLOGIC: No gross focal finding. PSYCHIATRIC: Calm and cooperative. Assessment and Plan - Plan IMPRESSION: Extensive soft tissue infection/abscess involving the left thigh and vastus lateralis muscle. Fluid culture has AFB. 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
[2018-03-18] MEDS ORDERED: ASP: Other exception documentation: ( ) OTHER PRN (13:50)
[2018-03-18 15:55] LABS: Bilirubin,Urine Negative (Negative); Clarity,Urine Clear (Clear); Color,Urine Yellow (Yellw/Straw); Glucose,Urine (UA) Negative (Negative); Leukocyte Esterase,Urine Negative (Negative); Nitrite,Urine Negative (Negative); Specific Gravity,Urine 1.018 (1.002-1.035)
[2018-03-18] MEDS: IMIPENEM IV.SIG SCH (20:06)
[2018-03-18] MEDS: CILASTATIN IV.SIG SCH (20:06)
[2018-03-18] MEDS: Baclofen 10 MG Tablet PO PRN (20:16)
[2018-03-18] MEDS: Zolpidem Tartrate 5 MG Tablet PO PRN (21:52)
[2018-03-19] MEDS: oxyCODONE/Acetaminophen 10/325 Tablet PO PRN ×6 (00:57→23:44)
[2018-03-19] MEDS: HYDROmorphone PF Inj 2 MG/ML Vial IV.PUSH PRN ×5 (02:10→22:12)
[2018-03-19] MEDS: IMIPENEM IV.SIG SCH ×4 (02:10→22:25)
[2018-03-19] MEDS: CILASTATIN IV.SIG SCH ×4 (02:10→22:25)
[2018-03-19] MEDS: SODIUM CHLOR 0.9% IV.SIG SCH ×4 (02:10→22:25)
[2018-03-19] MEDS: Baclofen 10 MG Tablet PO PRN ×2 (05:22→23:43)
[2018-03-19 05:40] LABS: Calcium 8.1 mg/dL (8.5-10.1); Carbon Dioxide 29.1 meq/L (21.0-32.0); Potassium 4.3 meq/L (3.5-5.1)
--- NOTE | 2018-03-19 07:56 | P.OP ---
Date of procedure: 03/16/18 Procedure: Irrigation and excisional debridement left thigh abscess and seroma Implants: None Anesthesia: GETA Surgeon: Antonella Perez MD Estimated blood loss (mL): 150 Pathology: none sent Operation and Findings: Indications for procedure: 37-year-old gentleman with small left thigh muscle injury approximately 2 weeks ago with increasing thigh pain and swelling. Patient underwent irrigation and debridement of his left thigh infected abscess approximately 11 days previously. Intraoperative cultures revealed acid-fast bacteria and patient was referred back to the hospital for infectious disease workup. Patient underwent aspiration of the fluid collection by interventional radiology for more fluid and bacterial testing. Over the last couple of days, the patient noticed increasing erythema around his thigh. Ultrasound revealed persistent/recurrent fluid collection. Options of management were discussed with the patient. Risks, benefits, alternatives were discussed. At this time he has consented to left thigh repeat irrigation and debridement. Description of procedure: Patient was brought back to the operating room placed supine on the operating room table with all bony processes well padded. General anesthesia then ensued. A timeout was performed to verify the correct patient, site, side and procedure to be performed. Preoperative antibiotics were not given as patient is on scheduled standing 3 antibiotics. The previous 5 inch incision was reopened and extended both proximally and distally with sharp dissection through the skin and subcutaneous tissue. The IT band was then incised in a longitudinal fashion and immediately straw-colored fluid was expressed. Again, this appeared straw-colored and clear without gross evidence of purulence or blood products. Deep to the IT band, there appeared to be significant amount of seroma-like fluid along with clearly defined encapsulated tissue. This capsular tissue was excisionally debrided with scalpel, rongeurs and curettes. The tissue at this time appeared healthy without any clear signs of infection. All muscle appeared viable. There was no gross purulence identified or signs of hematoma. A BENITA drain was placed deep to the IT band and the IT band closed with running PDS suture. The subcutaneous tissue was then closed with PDS sutures and the skin closed with nylon. Sterile dressings were then applied. Patient was awoken from general anesthesia without complication. Disposition: Patient can be weightbearing as tolerated and range of motion as tolerated to the left lower extremity. Patient will continue antibiotics per ID. No plan for further orthopedic surgery.
--- NOTE | 2018-03-19 08:08 | P.PNOP ---
Subjective Interval history: Patient seen yesterday 104 AM. Physical Exam Vital signs: Vital Signs 03/18/18 08:00 03/18/18 12:00 03/18/18 16:00 Temperature 98.6 F 98.2 F 98.5 F Pulse Rate 87 87 79 Respiratory Rate 18 17 18 Blood Pressure 132/78 123/74 125/72 Pulse Oximetry 97 96 94 L 03/18/18 20:00 03/19/18 00:00 Temperature 98.3 F 98.3 F Pulse Rate 79 68 Respiratory Rate 19 20 Blood Pressure 132/73 127/62 Pulse Oximetry 98 99 Intake & Output 03/18/18 03/19/18 03/19/18 18:59 06:59 18:59 Intake Total 1302 / 1302 1100 / 1100 Output Total 200 / 200 Balance 1102 / 1102 1100 / 1100 Weight 90.1 kg Intake: IV 402 / 402 300 / 300 Amikin Inj 500 MG In NS Inj 100 102 / 102 ML @ 200 mls/hr IV.SIG Q24H GAYLE Rx#:[id number] Primaxin Inj 250 MG In NS Inj 200 / 200 100 ML @ 200 mls/hr IV.SIG Q6H GAYLE Rx#:[id number] Primaxin Inj 500 MG In NS Inj 100 / 100 100 ML @ 200 mls/hr IV.SIG ONCE STA Rx#:[id number] Mefoxin Inj 2 GM In NS Inj 100 200 / 200 100 / 100 ML @ 200 mls/hr IV.SIG Q8H GAYLE Rx#:[id number] Oral 900 / 900 800 / 800 Output: Urine 200 / 200 Other: # Voids 4 1 Date of Last Bowel Movement 03/17/18 03/18/18 # Bowel Movements 1 Narrative: awake, alert, no acute distress Left lower extremity: Dressing and drain in place. Mild to moderate tenderness to palpation of the thigh. No appreciable change in swelling. Negative Homans. Brisk cap refill. Results - Labs CBC & Chem 7: 03/14/18 04:12 03/19/18 04:22 Laboratory Results - last 24 hr 03/18/18 03/18/18 03/18/18 09:30 15:06 15:25 Sodium Potassium Chloride Carbon Dioxide Anion Gap BUN 19 H Creatinine 1.34 H Estimated GFR 60 L Random Glucose Calcium Urine Color Urine Clarity Urine pH Ur Specific [place] Urine Protein Urine Glucose (UA) Urine Ketones Urine Occult Blood Urine Nitrate Urine Bilirubin Urine Urobilinogen Ur Leukocyte Esterase Urine WBC Ur Microscopic Review Urine Eosinophils ND Amikacin Trough 14.1 H* 03/18/18 03/19/18 15:25 04:22 Sodium 139 Potassium 4.3 Chloride 102 Carbon Dioxide 29.1 Anion Gap 8 BUN 21 H Creatinine 1.46 H Estimated GFR 55 L Random Glucose 90 Calcium 8.1 L Urine Color Yellow Urine Clarity Clear Urine pH 6.0 Ur Specific [place] 1.018 Urine Protein Negative Urine Glucose (UA) Negative Urine Ketones Negative Urine Occult Blood Negative Urine Nitrate Negative Urine Bilirubin Negative Urine Urobilinogen Less than 2 Ur Leukocyte Esterase Negative Urine WBC Less than 1 Ur Microscopic Review Not Reportable Urine Eosinophils Amikacin Trough - Procedures 03/10/18: US-guided aspiration of L thigh fluid collection, 40 cc clear fluid sent for analysis Assessment and Plan - Assessment and Plan 37yo M POD#2 s/p repeat I&D L thigh, and POD#15 s/p I&D L thigh seroma/abscess, 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 Dressing to be changed and drain pulled today 2. Daily dressing changes with xeroform, gauze and YULIA 3. WBAT and ROM as tolerated 4. Antibiotics per ID. 5. Follow-up in clinic in 2 weeks.
[2018-03-19] MEDS: Senna/Docusate Sodium 8.6/50 MG Tablet PO SCH ×2 (11:31→23:59)
--- NOTE | 2018-03-19 17:44 | P.PN ---
Subjective Interval history: Follow-up visit for left thigh abscess status post repeat irrigation and debridement. Stress. He reports that left thigh pain has improved and he has also noticed that the swelling has decreased. BENITA drain was removed yesterday. He denies any fevers, chills, cough, shortness of breath, nausea, vomiting or diarrhea. Reports a regular bowel movement. States that he continues to be somewhat tense with spasms, baclofen helping some, we discussed increasing the dose. Request for physical therapy to work with patient. Physical Exam Vital signs: Vital Signs 03/18/18 20:00 03/19/18 00:00 03/19/18 08:00 Temperature 98.3 F 98.3 F 98.8 F Pulse Rate 79 68 81 Respiratory Rate 19 20 19 Blood Pressure 132/73 127/62 125/67 Pulse Oximetry 98 99 98 03/19/18 12:00 03/19/18 16:00 Temperature 98.4 F 98.8 F Pulse Rate 83 16 L Respiratory Rate 18 18 Blood Pressure 122/67 130/73 Pulse Oximetry 96 99 Intake & Output 03/18/18 03/19/18 03/19/18 18:59 06:59 18:59 Intake Total 1302 / 1302 1100 / 1100 300 / 300 Output Total 200 / 200 Balance 1102 / 1102 1100 / 1100 300 / 300 Weight 90.1 kg Intake: IV 402 / 402 300 / 300 300 / 300 Amikin Inj 500 MG In NS Inj 100 102 / 102 ML @ 200 mls/hr IV.SIG Q24H GAYLE Rx#:[id number] Primaxin Inj 250 MG In NS Inj 200 / 200 200 / 200 100 ML @ 200 mls/hr IV.SIG Q6H GAYLE Rx#:[id number] Primaxin Inj 500 MG In NS Inj 100 / 100 100 ML @ 200 mls/hr IV.SIG ONCE STA Rx#:[id number] Mefoxin Inj 2 GM In NS Inj 100 200 / 200 100 / 100 100 / 100 ML @ 200 mls/hr IV.SIG Q8H GAYLE Rx#:[id number] Oral 900 / 900 800 / 800 Output: Urine 200 / 200 Other: # Voids 4 1 Date of Last Bowel Movement 03/17/18 03/18/18 03/19/18 # Bowel Movements 1 Narrative: GENERAL: Well-nourished, well-developed patient in visible pain and discomfort. CARDIOVASCULAR: Regular rate and rhythm. No murmurs, no rubs, no gallops. RESPIRATORY: No accessory muscle use. Clear to auscultation. Breath sounds equal bilaterally. GASTROINTESTINAL: Abdomen soft, non-tender, nondistended. + bowel sounds. MUSCULOSKELETAL: Left thigh with YULIA wrap in place noticeable improvement in edema. Bilateral pedal pulses 2+. Left ankle +1 edema. NEUROLOGICAL: Awake and alert and oriented 3. No obvious cranial nerve deficits. Motor grossly within normal limits. Five out of 5 muscle strength in the arms and right leg. Normal speech. Results - Labs CBC & Chem 7: 03/14/18 04:12 03/19/18 04:22 Laboratory Results - last 24 hr 03/18/18 03/19/18 09:30 04:22 Sodium 139 Potassium 4.3 Chloride 102 Carbon Dioxide 29.1 Anion Gap 8 BUN 21 H Creatinine 1.46 H Estimated GFR 55 L Random Glucose 90 Calcium 8.1 L Amikacin Trough 14.1 H* - Procedures 03/10/18: US-guided aspiration of L thigh fluid collection, 40 cc clear fluid sent for analysis Assessment and Plan - Assessment (1) Acid fast bacillus Code(s): A31.9 - Mycobacterial infection, unspecified Status: Acute (2) Abscess of left thigh Code(s): L02.416 - Cutaneous abscess of left lower limb Status: Acute - Plan 37-year-old male w with no significant medical history admitted on 03/08 for left thigh abscess. Approximately two weeks prior he suffered an injury to his left thigh after exercising and subsequently injected dexamethasone on the left side. On 03/02, he started to develop fever and was seen in the ER and discharged. He returned back on 03/03 with recurrent fevers and a CT of the femur showed presumed subacute hemorrhage extending down the entire lateral left thigh along the inner aspect of the tensor fascia paco with additional subcutaneous and edema. Patient was admitted and seen by Dr. Perez who performed I&D of left thigh infected seroma on 03/04. Cultures were negative and the patient was discharged on Keflex on 03/05. The culture ended up growing acid fast organisms and the patient was contacted to return to the hospital. In the ED, he was afebrile and his labs were grossly unremarkable including lactic acid. MRI showed a large enhancing edematous collection within the vastus lateralis with impressive surrounding edema and presumed abscess deep to the fascia. 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 Repeat ultrasound on 03/13 showed greater than 14 cm long subcutaneous multiloculated fluid collection in the lateral mid thigh. Per Dr. Bragg with IR and since not one large loculated abscess unless additional culture is needed drainage is not indicated. There are too numerous small loculations that would need to be drained if the goal were to provide decompression Culture from 03/09 with no growth. No acid-fast bacilli seen on smear. Mycobacterial culture pending Ortho consulted repeat MRI of LLE with few cellulitis noted throughout the visualized portion of left lower neck from knee to ankle. No evidence of soft tissue abscess or marrow edema to suggest osteomyelitis. -S/p repeat irrigation and debridement of left thigh by 03/16, BENITA drain to be removed 03/18 ID following, currently on cefoxitin, amikacin, and Biaxin while awaiting sensitivities from outside institution but can anticipate months of treatment. Call placed to microbiology department 03/17, but still no results from culture. -ID has placed Amikacin on hold and added Primaxin, UA and eos ordered -hold off on PICC due to low grad temp. Continue oral pain medication with IV Dilaudid for breakthrough pain. Increase baclofen to 20 mg as needed every 8 hours. -Consult PT DVT prophylaxis: ambulating Discussed Condition With: Patient, RN, Discharge Planning: Will need antibiotics for prolonged period, will need PICC and ID recommendations.
[2018-03-19] MEDS: Zolpidem Tartrate 5 MG Tablet PO PRN (23:44)
[2018-03-20] MEDS: HYDROmorphone PF Inj 2 MG/ML Vial IV.PUSH PRN ×5 (02:20→20:20)
[2018-03-20] MEDS: oxyCODONE/Acetaminophen 10/325 Tablet PO PRN ×5 (04:27→21:43)
[2018-03-20] MEDS: IMIPENEM IV.SIG SCH ×4 (04:28→20:20)
[2018-03-20] MEDS: CILASTATIN IV.SIG SCH ×4 (04:28→20:20)
[2018-03-20] MEDS: SODIUM CHLOR 0.9% IV.SIG SCH ×4 (04:28→20:20)
[2018-03-20] MEDS: Senna/Docusate Sodium 8.6/50 MG Tablet PO SCH ×2 (08:31→20:20)
[2018-03-20] MEDS: Baclofen 10 MG Tablet PO PRN ×2 (08:31→17:21)
--- NOTE | 2018-03-20 16:39 | P.PN ---
Subjective Interval history: Follow-up visit for left thigh abscess status post repeat irrigation and debridement. Patient seen and examined in bed in no acute distress. He denies any nausea, vomiting, fevers, chills, cough, shortness of breath or chest pain. Left thigh pain tolerable improved. Physical Exam Vital signs: Vital Signs 03/19/18 20:00 03/20/18 00:00 03/20/18 08:00 Temperature 98.5 F 98.2 F 97.6 F Pulse Rate 75 71 79 Respiratory Rate 17 17 17 Blood Pressure 138/85 116/65 140/75 Pulse Oximetry 97 99 97 03/20/18 12:00 03/20/18 16:00 Temperature 98.6 F 98.3 F Pulse Rate 77 85 Respiratory Rate 18 17 Blood Pressure 131/80 124/67 Pulse Oximetry 97 98 Intake & Output 03/19/18 03/20/18 03/20/18 18:59 06:59 18:59 Intake Total 1600 / 1600 1200 / 1200 400 / 400 Balance 1600 / 1600 1200 / 1200 400 / 400 Intake: IV 400 / 400 200 / 200 400 / 400 Primaxin Inj 250 MG In NS Inj 200 / 200 100 / 100 300 / 300 100 ML @ 200 mls/hr IV.SIG Q6H GAYLE Rx#:[id number] Mefoxin Inj 2 GM In NS Inj 100 200 / 200 100 / 100 100 / 100 ML @ 200 mls/hr IV.SIG Q8H GAYLE Rx#:[id number] Oral 1200 / 1200 1000 / 1000 Other: # Voids 6 1 Date of Last Bowel Movement 03/19/18 03/19/18 03/19/18 # Bowel Movements 1 1 Narrative: GENERAL: Well-nourished, well-developed patient in visible pain and discomfort. CARDIOVASCULAR: Regular rate and rhythm. No murmurs, no rubs, no gallops. RESPIRATORY: No accessory muscle use. Clear to auscultation. Breath sounds equal bilaterally. GASTROINTESTINAL: Abdomen soft, non-tender, nondistended. + bowel sounds. MUSCULOSKELETAL: Left thigh with YULIA wrap in place noticeable improvement in edema. Bilateral pedal pulses 2+. Left ankle +1 edema. NEUROLOGICAL: Awake and alert and oriented 3. No obvious cranial nerve deficits. Motor grossly within normal limits. Five out of 5 muscle strength in the arms and right leg. Normal speech. Results - Labs CBC & Chem 7: 03/14/18 04:12 03/20/18 07:12 Laboratory Results - last 24 hr 03/20/18 07:12 BUN 13 Creatinine 1.24 Estimated GFR 66 L - Procedures 03/10/18: US-guided aspiration of L thigh fluid collection, 40 cc clear fluid sent for analysis Assessment and Plan - Assessment (1) Acid fast bacillus Code(s): A31.9 - Mycobacterial infection, unspecified Status: Acute (2) Abscess of left thigh Code(s): L02.416 - Cutaneous abscess of left lower limb Status: Acute - Plan 37-year-old male w with no significant medical history admitted on 03/08 for left thigh abscess. Approximately two weeks prior he suffered an injury to his left thigh after exercising and subsequently injected dexamethasone on the left side. On 03/02, he started to develop fever and was seen in the ER and discharged. He returned back on 03/03 with recurrent fevers and a CT of the femur showed presumed subacute hemorrhage extending down the entire lateral left thigh along the inner aspect of the tensor fascia paco with additional subcutaneous and edema. Patient was admitted and seen by Dr. Perez who performed I&D of left thigh infected seroma on 03/04. Cultures were negative and the patient was discharged on Keflex on 03/05. The culture ended up growing acid fast organisms and the patient was contacted to return to the hospital. In the ED, he was afebrile and his labs were grossly unremarkable including lactic acid. MRI showed a large enhancing edematous collection within the vastus lateralis with impressive surrounding edema and presumed abscess deep to the fascia. 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 Repeat ultrasound on 03/13 showed greater than 14 cm long subcutaneous multiloculated fluid collection in the lateral mid thigh. Per Dr. Bragg with IR and since not one large loculated abscess unless additional culture is needed drainage is not indicated. There are too numerous small loculations that would need to be drained if the goal were to provide decompression Culture from 03/09 with no growth. No acid-fast bacilli seen on smear. Mycobacterial culture pending Ortho consulted repeat MRI of LLE with few cellulitis noted throughout the visualized portion of left lower neck from knee to ankle. No evidence of soft tissue abscess or marrow edema to suggest osteomyelitis. -S/p repeat irrigation and debridement of left thigh by 03/16, BENITA drain to be removed 03/18 ID following, currently on cefoxitin, amikacin, and Biaxin while awaiting sensitivities from outside institution but can anticipate months of treatment. Call placed to microbiology department 03/17, but still no results from culture. -ID has placed Amikacin on hold and added Primaxin, UA and eos negative. -hold off on PICC until culture and sensitivity obtained and renal function improves. Continue oral pain medication with IV Dilaudid for breakthrough pain. Baclofen 20 mg as needed every 8 hours. 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
[2018-03-20] MEDS: Zolpidem Tartrate 5 MG Tablet PO PRN (21:43)
[2018-03-21] MEDS: HYDROmorphone PF Inj 2 MG/ML Vial IV.PUSH PRN ×6 (00:31→21:21)
[2018-03-21] MEDS: Baclofen 10 MG Tablet PO PRN ×3 (01:58→21:20)
[2018-03-21] MEDS: oxyCODONE/Acetaminophen 10/325 Tablet PO PRN ×6 (01:58→23:15)
[2018-03-21] MEDS: IMIPENEM IV.SIG SCH ×4 (02:00→20:17)
[2018-03-21] MEDS: SODIUM CHLOR 0.9% IV.SIG SCH ×4 (02:00→20:17)
[2018-03-21] MEDS: CILASTATIN IV.SIG SCH ×4 (02:00→20:17)
[2018-03-21] MEDS: Senna/Docusate Sodium 8.6/50 MG Tablet PO SCH ×2 (08:55→20:17)
--- NOTE | 2018-03-21 17:09 | P.PN ---
Subjective Interval history: Follow-up visit for left thigh abscess. Patient is seen and examined resting in bed with at bedside. Ankle swelling has improved, patient is willing to try ambulating in the webb today, pain well controlled. No fevers, chills, nausea, vomiting, diarrhea, cough, shortness of breath reported. Physical Exam Vital signs: Vital Signs 03/20/18 20:00 03/21/18 00:00 03/21/18 08:00 Temperature 98.7 F 98.2 F 98.3 F Pulse Rate 83 86 67 Respiratory Rate 18 18 16 Blood Pressure 125/73 115/56 L 120/65 Pulse Oximetry 98 98 99 03/21/18 12:00 03/21/18 16:00 Temperature 98.4 F 98.5 F Pulse Rate 75 67 Respiratory Rate 17 16 Blood Pressure 125/71 125/63 Pulse Oximetry 97 100 Intake & Output 03/20/18 03/21/18 03/21/18 18:59 06:59 18:59 Intake Total 1500 / 1500 300 / 300 300 / 300 Balance 1500 / 1500 300 / 300 300 / 300 Weight 92 kg Intake: IV 500 / 500 300 / 300 300 / 300 Primaxin Inj 250 MG In NS Inj 300 / 300 200 / 200 200 / 200 100 ML @ 200 mls/hr IV.SIG Q6H GAYLE Rx#:[id number] Mefoxin Inj 2 GM In NS Inj 100 200 / 200 100 / 100 100 / 100 ML @ 200 mls/hr IV.SIG Q8H GAYLE Rx#:[id number] Oral 1000 / 1000 Other: # Voids 3 # Urine Diapers 4 Date of Last Bowel Movement 03/19/18 03/19/18 # Bowel Movements 0 Narrative: GENERAL: Well-nourished, well-developed patient in visible pain and discomfort. CARDIOVASCULAR: Regular rate and rhythm. No murmurs, no rubs, no gallops. RESPIRATORY: No accessory muscle use. Clear to auscultation. Breath sounds equal bilaterally. GASTROINTESTINAL: Abdomen soft, non-tender, nondistended. + bowel sounds. MUSCULOSKELETAL: Left thigh with YULIA wrap in place noticeable improvement in edema. Bilateral pedal pulses 2+. Left ankle edema resolved. NEUROLOGICAL: Awake and alert and oriented 3. No obvious cranial nerve deficits. Motor grossly within normal limits. Five out of 5 muscle strength in the arms and right leg. Normal speech. 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 Approximately two weeks prior he suffered an injury to his left thigh after exercising and subsequently injected dexamethasone on the left side. On 03/02, he started to develop fever and was seen in the ER and discharged. He returned back on 03/03 with recurrent fevers and a CT of the femur showed presumed subacute hemorrhage extending down the entire lateral left thigh along the inner aspect of the tensor fascia paco with additional subcutaneous and edema. Patient was admitted and seen by Dr. Perez who performed I&D of left thigh infected seroma on 03/04. Cultures were negative and the patient was discharged on Keflex on 03/05. The culture ended up growing acid fast organisms and the patient was contacted to return to the hospital. In the ED, he was afebrile and his labs were grossly unremarkable including lactic acid. MRI showed a large enhancing edematous collection within the vastus lateralis with impressive surrounding edema and presumed abscess deep to the fascia. 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 Repeat ultrasound on 03/13 showed greater than 14 cm long subcutaneous multiloculated fluid collection in the lateral mid thigh. Per Dr. Bragg with IR and since not one large loculated abscess unless additional culture is needed drainage is not indicated. There are too numerous small loculations that would need to be drained if the goal were to provide decompression Culture from 03/09 with no growth. No acid-fast bacilli seen on smear. Mycobacterial culture pending Ortho consulted repeat MRI of LLE with few cellulitis noted throughout the visualized portion of left lower neck from knee to ankle. No evidence of soft tissue abscess or marrow edema to suggest osteomyelitis. -S/p repeat irrigation and debridement of left thigh by 03/16, BENITA drain to be removed 03/18 ID following, currently on cefoxitin, Biaxin, and Primaxin while awaiting sensitivities from outside institution but can anticipate months of treatment. -hold off on PICC until culture and sensitivity obtained and renal function improves. Continue oral pain medication with IV Dilaudid for breakthrough pain. Baclofen 20 mg as needed every 8 hours. -Consult PT DVT prophylaxis: ambulating Discussed Condition With: Patient and . Discharge Planning: Will need antibiotics for prolonged period, will need PICC and ID recommendations.
[2018-03-21] MEDS: Zolpidem Tartrate 5 MG Tablet PO PRN (21:21)
[2018-03-22] MEDS: SODIUM CHLOR 0.9% IV.SIG SCH ×5 (03:39→21:56)
[2018-03-22] MEDS: IMIPENEM IV.SIG SCH ×5 (03:39→21:56)
[2018-03-22] MEDS: CILASTATIN IV.SIG SCH ×5 (03:39→21:56)
[2018-03-22] MEDS: HYDROmorphone PF Inj 2 MG/ML Vial IV.PUSH PRN ×5 (03:40→19:58)
[2018-03-22] MEDS: oxyCODONE/Acetaminophen 10/325 Tablet PO PRN ×5 (04:39→21:56)
[2018-03-22] MEDS: Senna/Docusate Sodium 8.6/50 MG Tablet PO SCH ×3 (07:46→20:00)
[2018-03-22] MEDS: Baclofen 10 MG Tablet PO PRN ×2 (09:20→17:44)
--- NOTE | 2018-03-22 09:35 | P.PN ---
Subjective Interval history: Follow-up visit for left thigh abscess. Patient is seen and examined resting in bed with nurse at bedside performing left thigh dressing change, also present. Patient reports adequate pain control, no reports of nausea, vomiting , diarrhea, cough or shortness of breath. Physical Exam Vital signs: Vital Signs 03/21/18 12:00 03/21/18 16:00 03/21/18 20:00 Temperature 98.4 F 98.5 F 99.0 F Pulse Rate 75 67 83 Respiratory Rate 17 16 18 Blood Pressure 125/71 125/63 124/76 Pulse Oximetry 97 100 95 03/22/18 00:00 03/22/18 08:00 Temperature 98.5 F 97.5 F L Pulse Rate 83 73 Respiratory Rate 18 16 Blood Pressure 123/71 152/73 H Pulse Oximetry 96 99 Intake & Output 03/21/18 03/22/18 03/22/18 18:59 06:59 18:59 Intake Total 1999 / 1999 300 / 300 100 / 100 Output Total 3 / Balance 1996 300 / 300 100 / 100 Weight 90.9 kg Intake: IV 400 / 400 300 / 300 100 / 100 Primaxin Inj 250 MG In NS Inj 200 / 200 200 / 200 100 / 100 100 ML @ 200 mls/hr IV.SIG Q6H GAYLE Rx#:[id number] Mefoxin Inj 2 GM In NS Inj 100 200 / 200 100 / 100 ML @ 200 mls/hr IV.SIG Q8H GAYLE Rx#:[id number] Oral 1600 / 1600 Output: Urine 3 / 3 Other: # Voids 3 Date of Last Bowel Movement 03/19/18 # Bowel Movements 0 Narrative: GENERAL: Well-nourished, well-developed patient in visible pain and discomfort. CARDIOVASCULAR: Regular rate and rhythm. No murmurs, no rubs, no gallops. RESPIRATORY: No accessory muscle use. Clear to auscultation. Breath sounds equal bilaterally. GASTROINTESTINAL: Abdomen soft, non-tender, nondistended. + bowel sounds. MUSCULOSKELETAL: Left thigh wound well approximated surgical incision and dry and intact stitches. Minimal erythema noted, greatly improved, minimal trace edema, no visible drainage noted. Dry drainage. Towards the distal portion of incision. Bilateral pedal pulses 2+. Left ankle edema resolved. NEUROLOGICAL: Awake and alert and oriented 3. No obvious cranial nerve deficits. Motor grossly within normal limits. Five out of 5 muscle strength in the arms and right leg. Normal speech. 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 Approximately two weeks prior he suffered an injury to his left thigh after exercising and subsequently injected dexamethasone on the left side. On 03/02, he started to develop fever and was seen in the ER and discharged. He returned back on 03/03 with recurrent fevers and a CT of the femur showed presumed subacute hemorrhage extending down the entire lateral left thigh along the inner aspect of the tensor fascia paco with additional subcutaneous and edema. Patient was admitted and seen by Dr. Perez who performed I&D of left thigh infected seroma on 03/04. Cultures were negative and the patient was discharged on Keflex on 03/05. The culture ended up growing acid fast organisms and the patient was contacted to return to the hospital. In the ED, he was afebrile and his labs were grossly unremarkable including lactic acid. MRI showed a large enhancing edematous collection within the vastus lateralis with impressive surrounding edema and presumed abscess deep to the fascia. 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 Repeat ultrasound on 03/13 showed greater than 14 cm long subcutaneous multiloculated fluid collection in the lateral mid thigh. Per Dr. Bragg with IR and since not one large loculated abscess unless additional culture is needed drainage is not indicated. There are too numerous small loculations that would need to be drained if the goal were to provide decompression Culture from 03/09 with no growth. No acid-fast bacilli seen on smear. Mycobacterial culture pending Ortho consulted repeat MRI of LLE with few cellulitis noted throughout the visualized portion of left lower neck from knee to ankle. No evidence of soft tissue abscess or marrow edema to suggest osteomyelitis. -S/p repeat irrigation and debridement of left thigh by 03/16, BENITA drain to be removed 03/18 ID following, currently on cefoxitin, Biaxin, and Primaxin while awaiting sensitivities from outside institution but can anticipate months of treatment. -hold off on PICC until culture and sensitivity obtained and renal function improves. Continue oral pain medication with IV Dilaudid for breakthrough pain. Baclofen 20 mg as needed every 8 hours. -Consult PT DVT prophylaxis: ambulating Discussed Condition With: Patient, , RN, and . Discharge Planning: Awaiting culture and sensitivity from abscess sent to [facility] and ID antibiotic recommendations.
[2018-03-22] MEDS ORDERED: CEFOXITIN IV.SIG SCH (11:00)
--- NOTE | 2018-03-22 13:35 | P.PNID ---
Subjective Remarks: ID COVERAGE Notes reviewed Temps ok Last OR 03/16 No complaints Creatinine better NO diarrhea No GI complaints No dizziness, tinnitus or hearing loss No rash or itching This is a 37-year-old white male who initially presented to [facility] on 03/02/2018 with left thigh pain and swelling. The patient was noted to have subacute hemorrhage extending down to the entire left lateral thigh along the inner aspect of the tensor fascia paco and subcutaneous edema. The patient underwent surgical incision and excisional debridement of left thigh infected seroma. Culture was taken. At the time, he was in the hospital, he had elevated temperature up to 101.9 degrees. The patient was discharged home on oral antibiotics. He came back to the emergency department yesterday again for evaluation of the same problem and was told that the culture was growing acid fast organisms and that he needed to come back for further evaluation. MRI was repeated and it came back showing large enhancing fluid collection within the vastus lateralis muscle with very impressive surrounding soft tissue edema and elongated fluid collection deep into the fascia in the peritoneal aspect of the mass, presumed to be abscess. The culture which was taken previously has acid fast bacteria. tang blood cell count is normal. He denies other symptoms. Antibiotics: Primaxin Biaxin cefoxitin Allergies/Adverse Reactions: Allergies adhesive tape Allergy (Verified 03/03/18 16:11) Rash Objective Vital Signs 03/21/18 16:00 03/21/18 20:00 03/22/18 00:00 Temperature 98.5 F 99.0 F 98.5 F Pulse Rate 67 83 83 Respiratory Rate 16 18 18 Blood Pressure 125/63 124/76 123/71 Pulse Oximetry 100 95 96 03/22/18 08:00 03/22/18 12:00 Temperature 97.5 F L 98.6 F Pulse Rate 73 63 Respiratory Rate 16 14 Blood Pressure 152/73 H 137/61 Pulse Oximetry 99 100 Intake & Output 03/21/18 03/22/18 03/22/18 18:59 06:59 18:59 Intake Total 1999 300 / 300 200 / 200 Output Total Balance 1996 300 / 300 200 / 200 Weight 90.9 kg Intake: IV 400 / 400 300 / 300 200 / 200 Primaxin Inj 250 MG In NS Inj 200 / 200 200 / 200 100 / 100 100 ML @ 200 mls/hr IV.SIG Q6H GAYLE Rx#:[id number] Mefoxin Inj 2 GM In NS Inj 100 200 / 200 100 / 100 100 / 100 ML @ 200 mls/hr IV.SIG Q8H GAYLE Rx#:[id number] Oral 1600 / 1600 Output: Urine 3 / 3 Other: # Voids 3 Date of Last Bowel Movement 03/19/18 # Bowel Movements 0 Lab - Chemistry Results 03/21/18 03/22/18 04:18 05:42 BUN 13 12 Creatinine 1.33 H 1.23 Estimated GFR 61 L 67 L Imaging: ITS Impressions Femur MRI 03/08/18 14:00 CONCLUSION: 1. There is a large enhancing edematous collection within the vastus lateralis muscle with very impressive surrounding soft tissue edema. There is also an elongated fluid collection deep to the fascia in the peripheral aspect of the mass, presumed abscess. What is unusual are areas of macroscopic fat within the collection, can be seen in patients with a resolving hematoma or possibly a hemorrhagic hemangioma. Similar to the recent CT scan. Needle Aspiration US 03/09/18 00:00 CONCLUSION: Successful aspiration of a fluid collection from the lateral aspect of the thigh. Soft Tissue Ultrasound 03/13/18 00:00 CONCLUSION: 1. Greater than 14 cm long subcutaneous multiloculated fluid collection with peripheral flow located in the lateral mid thigh. Lower Extremity MRI 03/15/18 00:00 CONCLUSION: 1. Few cellulitis noted throughout the visualized portion of the left lower leg from the knee to the ankle. 2. No evidence of deep soft tissue abscess or marrow edema to suggest osteomyelitis. Physical Exam: PHYSICAL EXAMINATION: GENERAL: No acute distress. Awake and alert and oriented. HEENT: Head atraumatic. Extraocular movements grossly intact. Pupils reactive to light. No icterus. Oropharynx: Moist mucosa. No visible lesions. NECK: Supple without adenopathy. LUNGS: Clear to auscultation. HEART: Regular S1, S2, without murmurs, rubs or gallops. ABDOMEN: Bowel sounds present. flat. Soft, nontender. EXTREMITIES: Left thigh with dry and intact dressing, swollen is swollen and there is a surgical incision . Improving erythema at the L leg SKIN: No rash. NEUROLOGIC: No gross focal finding. PSYCHIATRIC: Calm and cooperative. Assessment and Plan - Plan IMPRESSION: Extensive soft tissue infection/abscess involving the left thigh and vastus lateralis muscle. Fluid culture has M abscessus. renal insufficiency RECOMMENDATIONS: Continue Cefoxitin Continue Biaxin Continue Primaxin Follow BMP Follow temps Monitor progress Await susceptibility testing Explained plan to the patient
[2018-03-22] MEDS: cefOXitin Inj 2 GM in Sodium Chlor 0.9% Inj 100 ML IV.SIG SCH (19:58)
[2018-03-22] MEDS: Zolpidem Tartrate 5 MG Tablet PO PRN (22:40)
[2018-03-23] MEDS: HYDROmorphone PF Inj 2 MG/ML Vial IV.PUSH PRN ×6 (00:04→21:42)
[2018-03-23] MEDS: oxyCODONE/Acetaminophen 10/325 Tablet PO PRN ×5 (01:50→20:02)
[2018-03-23] MEDS: Baclofen 10 MG Tablet PO PRN ×3 (01:50→20:02)
[2018-03-23] MEDS: SODIUM CHLOR 0.9% IV.SIG SCH ×4 (02:57→20:02)
[2018-03-23] MEDS: IMIPENEM IV.SIG SCH ×4 (02:57→20:02)
[2018-03-23] MEDS: CILASTATIN IV.SIG SCH ×4 (02:57→20:02)
[2018-03-23] MEDS: cefOXitin Inj 2 GM in Sodium Chlor 0.9% Inj 100 ML IV.SIG SCH (03:50)
[2018-03-23] MEDS: Senna/Docusate Sodium 8.6/50 MG Tablet PO SCH ×2 (09:03→20:02)
[2018-03-23] MEDS: CEFOXITIN IV.SIG SCH ×4 (11:15→19:38)
[2018-03-23] MEDS: WATER IV.SIG SCH ×4 (11:15→19:38)
[2018-03-23] MEDS: DEXTROSE 5% IV.SIG SCH ×4 (11:15→19:38)
--- NOTE | 2018-03-23 18:25 | P.PN ---
Subjective Interval history: RN denies any deterioration since last night. Pt reports he's doing exercises to try to get ROM back. Physical Exam Vital signs: Vital Signs 03/22/18 20:00 03/22/18 20:28 03/22/18 22:26 Temperature 98.6 F Pulse Rate 81 Respiratory Rate 20 17 17 Blood Pressure 124/68 Pulse Oximetry 98 03/23/18 00:18 03/23/18 00:30 03/23/18 02:20 Temperature 98.6 F Pulse Rate 97 H Respiratory Rate 20 17 17 Blood Pressure 115/60 Pulse Oximetry 96 03/23/18 04:20 03/23/18 08:00 03/23/18 12:00 Temperature 98.3 F 98.7 F Pulse Rate 79 75 Respiratory Rate 17 17 17 Blood Pressure 125/73 160/70 H Pulse Oximetry 94 L 100 03/23/18 16:00 Temperature 98.4 F Pulse Rate 83 Respiratory Rate 17 Blood Pressure 150/74 H Pulse Oximetry 100 Intake & Output 03/22/18 03/23/18 03/23/18 18:59 06:59 18:59 Intake Total 2600 / 2600 1180 / 1180 250 / 250 Balance 2600 / 2600 1180 / 1180 250 / 250 Weight 91 g Intake: IV 400 / 400 400 / 400 250 / 250 Primaxin Inj 250 MG In NS Inj 200 / 200 200 / 200 200 / 200 100 ML @ 200 mls/hr IV.SIG Q6H GAYLE Rx#:[id number] Mefoxin Inj 2 GM In D5W Inj 50 50 / 50 ML @ 100 mls/hr IV.SIG Q8H GAYLE Rx#:[id number] Mefoxin Inj 2 GM In NS Inj 100 200 / 200 ML @ 200 mls/hr IV.SIG Q8H GAYLE Rx#:[id number] Mefoxin Inj 2 GM In NS Inj 100 100 / 100 ML @ 200 mls/hr IV.SIG Q8H GAYLE Rx#:[id number] Mefoxin Inj 2 GM In Bag/Syringe 100 / 100 1 EACH @ 200 mls/hr IV.SIG Q8H GAYLE Rx#:[id number] Oral 2200 / 2200 780 / 780 Other: # Voids 4 3 # Bowel Movements 1 Narrative: Left thigh wrapped, no LE edema NAD Results - Labs CBC & Chem 7: 03/14/18 04:12 03/25/18 05:40 Laboratory Results - last 24 hr 03/23/18 07:26 BUN 16 Creatinine 1.21 Estimated GFR 68 L Microbiology 03/09/18 14:35 Fluid - Other Acid Fast Bacilli Smear - Final No acid fast bacilli seen 03/09/18 14:35 Fluid - Other Mycobacterial Culture - Preliminary No growth in 2 weeks - Procedures 03/10/18: US-guided aspiration of L thigh fluid collection, 40 cc clear fluid sent for analysis Assessment and Plan - Assessment (1) Acid fast bacillus Code(s): A31.9 - Mycobacterial infection, unspecified Status: Acute (2) Abscess of left thigh Code(s): L02.416 - Cutaneous abscess of left lower limb Status: Acute - Plan 37-year-old male admitted on 03/08 for left thigh abscess. Approximately two weeks prior he suffered an injury to his left thigh after exercising and subsequently injected dexamethasone on the left side. On 03/02, he started to develop fever and was seen in the ER and discharged. He returned back on 03/03 with recurrent fevers and a CT of the femur showed presumed subacute hemorrhage extending down the entire lateral left thigh along the inner aspect of the tensor fascia paco with additional subcutaneous and edema. Patient was admitted and seen by Dr. Perez who performed I&D of left thigh infected seroma on 03/04. Cultures were negative and the patient was discharged on Keflex on . The culture ended up growing acid fast organisms and the patient was contacted to return to the hospital. In the ED, he was afebrile and his labs were grossly unremarkable including lactic acid. MRI showed a large enhancing edematous collection within the vastus lateralis with impressive surrounding edema and presumed abscess deep to the fascia. 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 Repeat ultrasound on 03/13 showed greater than 14 cm long subcutaneous multiloculated fluid collection in the lateral mid thigh. Per Dr. Bragg with IR and since not one large loculated abscess unless additional culture is needed drainage is not indicated. There are too numerous small loculations that would need to be drained if the goal were to provide decompression Culture from 03/09 with no growth. No acid-fast bacilli seen on smear. Mycobacterial culture pending Ortho consulted repeat MRI of LLE with few cellulitis noted throughout the visualized portion of left lower neck from knee to ankle. No evidence of soft tissue abscess or marrow edema to suggest osteomyelitis. -S/p repeat I&D of left thigh by 03/16, BENITA drain to be removed 03/18 ID following, currently on cefoxitin, Biaxin, and Primaxin while awaiting sensitivities from outside institution but can anticipate months of treatment. -hold off on PICC until culture and sensitivity results IV Dilaudid for breakthrough pain. Baclofen 20 mg as needed every 8 hours. - PT
[2018-03-23] MEDS: Zolpidem Tartrate 5 MG Tablet PO PRN (21:48)
[2018-03-24] MEDS: HYDROmorphone PF Inj 2 MG/ML Vial IV.PUSH PRN ×5 (01:40→20:03)
[2018-03-24] MEDS: IMIPENEM IV.SIG SCH ×4 (03:08→20:04)
[2018-03-24] MEDS: SODIUM CHLOR 0.9% IV.SIG SCH ×4 (03:08→20:04)
[2018-03-24] MEDS: CILASTATIN IV.SIG SCH ×4 (03:08→20:04)
[2018-03-24] MEDS: CEFOXITIN IV.SIG SCH ×6 (03:59→20:04)
[2018-03-24] MEDS: DEXTROSE 5% IV.SIG SCH ×6 (03:59→20:04)
[2018-03-24] MEDS: WATER IV.SIG SCH ×6 (03:59→20:04)
[2018-03-24] MEDS: oxyCODONE/Acetaminophen 10/325 Tablet PO PRN ×6 (04:02→21:18)
[2018-03-24] MEDS: Baclofen 10 MG Tablet PO PRN ×3 (04:07→21:18)
[2018-03-24] MEDS: Senna/Docusate Sodium 8.6/50 MG Tablet PO SCH ×2 (08:37→20:03)
--- NOTE | 2018-03-24 15:19 | P.DCO ---
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 Venous Access: PICC Line Additional Instructions: [x] Peripheral flush and dressing changes per protocol [x] Implanted port and central millinery copyist: * Implanted port: 10 ml Normal Saline followed by 5 ml Heparin 100 units/ml Heparin flush after each use and monthly to maintain. [] May leave port accessed during therapy. [] May leave peripheral site accessed for duration of therapy. [x] If patient has SOB or respiratory distress, check oxygen saturation. If less than 90% or clinical signs of respiratory distress, administer oxygen at 2 L/min. via nasal cannula and notify physician. [x] Anaphylaxis/Reaction orders: * Stop infusion. * Keep IV line open with saline flush. * Notify physician. * Monitor vital signs every 15 minutes until symptoms resolve. * Check Oxygen saturation; Oxygen at 2 L/min. via nasal cannula if less than 90% or clinical signs of respiratory distress. * Administer diphenhydramine (Benadryl) 25 mg IV STAT, (unless patient has received as pre-med). May repeat once, if necessary. * Solu-Cortef 250 mg IVP over 30-60 seconds, use 100 mg vials for each dissolution. * Epinephrine (1mg/1 ml) 0.3 mg subcutaneously or IVP now with any signs of respiratory distress. * Check with physician for new additional pre-med orders if patient is re- challenged or re-treated. [x] May remove PICC line when treatment complete, after confirming with Physician. [x] If the patient is admitted to the hospital, the ED, or transferred via [facility] , complete transfer form including medication reconciliation order sheet. Weekly Labs: BMP, CBC w/diff Additional Information: Biaxin 500mg PO BID. Follow up with the [place] [facility]. - Patient Information Allergies adhesive tape Allergy (Verified 03/03/18 16:11) Rash
--- NOTE | 2018-03-24 15:35 | P.PNID ---
Subjective Remarks: ID follow-up care. Patient notes that the pain in the left thigh is improved. Patient underwent repeated surgery including incision and excisional debridement of the left thigh abscess and seroma. Still awaiting the sensitivity information from [place]. However I spoke to microbiology lab here today and I was told that the culture was not forwarded to [place] for sensitivity testing yet because there was no growth at the state labs upon subculture. I was notified by microbiology lab that they will send the original sample to [place] today. Patient says he feels much better. No fever. No night sweats. No chills. This is a 37-year-old white male who initially presented to [facility] on 03/02/2018 with left thigh pain and swelling. The patient was noted to have subacute hemorrhage extending down to the entire left lateral thigh along the inner aspect of the tensor fascia paco and subcutaneous edema. The patient underwent surgical incision and excisional debridement of left thigh infected seroma. Culture was taken. At the time, he was in the hospital, he had elevated temperature up to 101.9 degrees. The patient was discharged home on oral antibiotics. He came back to the emergency department yesterday again for evaluation of the same problem and was told that the culture was growing acid fast organisms and that he needed to come back for further evaluation. MRI was repeated and it came back showing large enhancing fluid collection within the vastus lateralis muscle with very impressive surrounding soft tissue edema and elongated fluid collection deep into the fascia in the peritoneal aspect of the mass, presumed to be abscess. Antibiotics: Primaxin Biaxin cefoxitin Allergies/Adverse Reactions: Allergies adhesive tape Allergy (Verified 03/03/18 16:11) Rash Objective Vital Signs 03/23/18 16:00 03/23/18 20:32 03/23/18 22:12 Temperature 98.4 F Pulse Rate 83 Respiratory Rate 17 17 18 Blood Pressure 150/74 H Pulse Oximetry 100 03/24/18 00:00 03/24/18 00:30 03/24/18 02:10 Temperature 98.5 F Pulse Rate 88 Respiratory Rate 18 17 17 Blood Pressure 139/88 Pulse Oximetry 98 03/24/18 04:32 03/24/18 07:06 03/24/18 08:00 Temperature 98.7 F Pulse Rate 80 Respiratory Rate 18 17 16 Blood Pressure 122/65 Pulse Oximetry 100 03/24/18 11:23 03/24/18 12:00 03/24/18 14:00 Temperature 97 F L Pulse Rate 72 Respiratory Rate 18 17 18 Blood Pressure 135/84 Pulse Oximetry 96 Intake & Output 03/23/18 03/24/18 03/24/18 18:59 06:59 18:59 Intake Total 4050 / 4050 520 / 520 100 / 100 Balance 4050 / 4050 520 / 520 100 / 100 Weight 86.7 kg 86.7 kg Intake: IV 250 / 250 300 / 300 100 / 100 Primaxin Inj 250 MG In NS Inj 200 / 200 200 / 200 100 / 100 100 ML @ 200 mls/hr IV.SIG Q6H GAYLE Rx#:[id number] Mefoxin Inj 2 GM In D5W Inj 50 50 / 50 100 / 100 ML @ 100 mls/hr IV.SIG Q8H GAYLE Rx#:[id number] Oral 3800 / 3800 220 / 220 Other: # Voids 6 1 Date of Last Bowel Movement 03/19/18 # Bowel Movements 1 03/09/18 14:35 Fluid - Other Acid Fast Bacilli Smear - Final No acid fast bacilli seen 03/09/18 14:35 Fluid - Other Mycobacterial Culture - Preliminary No growth in 2 weeks Lab - Chemistry Results 03/23/18 03/24/18 07:26 06:36 BUN 16 13 Creatinine 1.21 1.24 Estimated GFR 68 L 66 L Imaging: ITS Impressions Femur MRI 03/08/18 14:00 CONCLUSION: 1. There is a large enhancing edematous collection within the vastus lateralis muscle with very impressive surrounding soft tissue edema. There is also an elongated fluid collection deep to the fascia in the peripheral aspect of the mass, presumed abscess. What is unusual are areas of macroscopic fat within the collection, can be seen in patients with a resolving hematoma or possibly a hemorrhagic hemangioma. Similar to the recent CT scan. Needle Aspiration US 03/09/18 00:00 CONCLUSION: Successful aspiration of a fluid collection from the lateral aspect of the thigh. Soft Tissue Ultrasound 03/13/18 00:00 CONCLUSION: 1. Greater than 14 cm long subcutaneous multiloculated fluid collection with peripheral flow located in the lateral mid thigh. Lower Extremity MRI 03/15/18 00:00 CONCLUSION: 1. Few cellulitis noted throughout the visualized portion of the left lower leg from the knee to the ankle. 2. No evidence of deep soft tissue abscess or marrow edema to suggest osteomyelitis. Physical Exam: PHYSICAL EXAMINATION: GENERAL: No acute distress. Awake and alert and oriented. HEENT: Head atraumatic. Extraocular movements grossly intact. Pupils reactive to light. No icterus. Oropharynx: Moist mucosa. No visible lesions. NECK: Supple without adenopathy. LUNGS: Clear to auscultation. HEART: Regular S1, S2, without murmurs, rubs or gallops. ABDOMEN: Bowel sounds present. flat. Soft, nontender. EXTREMITIES: Left thigh swelling is improved. Surgical incision of the lateral aspect, which is clean. Minimal erythema and warmth at the posterior left thigh upper aspect. Swelling of the left leg resolved. SKIN: No rash. NEUROLOGIC: No gross focal finding. PSYCHIATRIC: Calm and cooperative. 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 RECOMMENDATIONS: Continue Cefoxitin and Primaxin pending sensitivity test result. Continue Biaxin. A PICC line will be requested for IV antibiotics administration. Continue to treat with IV cefoxitin and IV Primaxin until 04/12/2018. Further decisions will be made depending on the response to antibiotic treatment. The patient is discharged that decision will be made by the infectious disease physician following him as outpatient. Continue to treat with Biaxin. He needs to continue with the Biaxin since that is one antibiotic to which the organism is often sensitive. Patient will need to follow-up with the [facility] infectious disease physician. Duration of antibiotic treatment will depend on the patient's response. Extensive discussion of the plan has been made with the patient and his . Consult discussed with case management who will forward the antibiotic plans to the [place] system for arrangement of outpatient antibiotic treatment.
--- NOTE | 2018-03-24 16:17 | P.PN ---
Subjective Interval history: Nursing denies any deterioration since last night. Patient says that his pain overall is better. Is really anxious about leaving. Physical Exam Vital signs: Vital Signs 03/23/18 20:32 03/23/18 22:12 03/24/18 00:00 Temperature 98.5 F Pulse Rate 88 Respiratory Rate 17 18 18 Blood Pressure 139/88 Pulse Oximetry 98 03/24/18 00:30 03/24/18 02:10 03/24/18 04:32 Temperature Pulse Rate Respiratory Rate 17 17 18 Blood Pressure Pulse Oximetry 03/24/18 07:06 03/24/18 08:00 03/24/18 11:23 Temperature 98.7 F Pulse Rate 80 Respiratory Rate 17 16 18 Blood Pressure 122/65 Pulse Oximetry 100 03/24/18 12:00 03/24/18 14:00 03/24/18 15:51 Temperature 97 F L Pulse Rate 72 Respiratory Rate 17 18 18 Blood Pressure 135/84 Pulse Oximetry 96 Intake & Output 03/23/18 03/24/18 03/24/18 18:59 06:59 18:59 Intake Total 4050 / 4050 520 / 520 150 / 150 Balance 4050 / 4050 520 / 520 150 / 150 Weight 86.7 kg 86.7 kg Intake: IV 250 / 250 300 / 300 150 / 150 Primaxin Inj 250 MG In NS Inj 200 / 200 200 / 200 100 / 100 100 ML @ 200 mls/hr IV.SIG Q6H GAYLE Rx#:[id number] Mefoxin Inj 2 GM In D5W Inj 50 50 / 50 100 / 100 50 / 50 ML @ 100 mls/hr IV.SIG Q8H GAYLE Rx#:[id number] Oral 3800 / 3800 220 / 220 Other: # Voids 6 1 Date of Last Bowel Movement 03/19/18 # Bowel Movements 1 Narrative: Left lower extremity thigh incision looks clean dry and intact 5 overall seems to be normal in size, no keli edema Results - Labs CBC & Chem 7: 03/14/18 04:12 03/24/18 06:36 Laboratory Results - last 24 hr 03/24/18 06:36 BUN 13 Creatinine 1.24 Estimated GFR 66 L Microbiology 03/09/18 14:35 Fluid - Other Acid Fast Bacilli Smear - Final No acid fast bacilli seen 03/09/18 14:35 Fluid - Other Mycobacterial Culture - Preliminary No growth in 2 weeks - Procedures 03/10/18: US-guided aspiration of L thigh fluid collection, 40 cc clear fluid sent for analysis Assessment and Plan - Assessment (1) Acid fast bacillus Code(s): A31.9 - Mycobacterial infection, unspecified Status: Acute (2) Abscess of left thigh Code(s): L02.416 - Cutaneous abscess of left lower limb Status: Acute - Plan 37-year-old male admitted on 03/08 for left thigh abscess. Approximately two weeks prior he suffered an injury to his left thigh after exercising and subsequently injected dexamethasone on the left side. On 03/02, he started to develop fever and was seen in the ER and discharged. He returned back on 03/03 with recurrent fevers and a CT of the femur showed presumed subacute hemorrhage extending down the entire lateral left thigh along the inner aspect of the tensor fascia paco with additional subcutaneous and edema. Patient was admitted and seen by Dr. Perez who performed I&D of left thigh infected seroma on 03/04. Cultures were negative and the patient was discharged on Keflex on . The culture ended up growing acid fast organisms and the patient was contacted to return to the hospital. In the ED, he was afebrile and his labs were grossly unremarkable including lactic acid. MRI showed a large enhancing edematous collection within the vastus lateralis with impressive surrounding edema and presumed abscess deep to the fascia. 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 Repeat ultrasound on 03/13 showed greater than 14 cm long subcutaneous multiloculated fluid collection in the lateral mid thigh. Per Dr. Bragg with IR and since not one large loculated abscess unless additional culture is needed drainage is not indicated. There are too numerous small loculations that would need to be drained if the goal were to provide decompression Culture from 03/09 with no growth. No acid-fast bacilli seen on smear. Mycobacterial culture pending Ortho consulted repeat MRI of LLE with few cellulitis noted throughout the visualized portion of left lower neck from knee to ankle. No evidence of soft tissue abscess or marrow edema to suggest osteomyelitis. -S/p repeat irrigation and debridement of left thigh by 03/16, BENITA drain to be removed 03/18 ID following, currently on cefoxitin, Biaxin, and Primaxin while awaiting sensitivities from outside institution but can anticipate months of treatment. Infectious disease ordering PICC line. [facility] therapy likely with Biaxin. Continue oral pain medication with IV Dilaudid for breakthrough pain. Baclofen 20 mg as needed every 8 hours. - PT
[2018-03-24] MEDS ORDERED: Heparin Central Flush 100 UNIT/ML 5 ML Vial IV.FLUSH PRN (20:04)
[2018-03-24] MEDS ORDERED: Melatonin 5 MG Tablet PO PRN (21:00)
[2018-03-25] MEDS: HYDROmorphone PF Inj 2 MG/ML Vial IV.PUSH PRN ×2 (00:28→05:16)
[2018-03-25] MEDS: SODIUM CHLOR 0.9% IV.SIG SCH ×3 (03:07→16:01)
[2018-03-25] MEDS: CEFOXITIN IV.SIG SCH ×4 (03:07→13:33)
[2018-03-25] MEDS: IMIPENEM IV.SIG SCH ×3 (03:07→16:01)
[2018-03-25] MEDS: WATER IV.SIG SCH ×4 (03:07→13:33)
[2018-03-25] MEDS: DEXTROSE 5% IV.SIG SCH ×4 (03:07→13:33)
[2018-03-25] MEDS: CILASTATIN IV.SIG SCH ×3 (03:07→16:01)
[2018-03-25] MEDS: oxyCODONE/Acetaminophen 10/325 Tablet PO PRN ×4 (03:08→16:02)
[2018-03-25] MEDS ORDERED: Heparin Central Flush 100 UNIT/ML 5 ML Vial IV.FLUSH SCH (09:00)
--- NOTE | 2018-03-25 09:19 | P.DCO ---
- Home Health Nursing Order: Wound care and dressing changes, IV medication administration - Case Management Consult Yes - Certification I have seen patient Reji Ramires on 03/25/18. My clinical findings support the need for the requested home health care services because: Injectable medication education/administration I certify that my clinical findings support that this patient is homebound because: Post-op weakness Attestation/Additional Detail: 1) IV medication administration and teaching 2) wound care daily dressing change with xeroform and primapore
[2018-03-25] MEDS: Senna/Docusate Sodium 8.6/50 MG Tablet PO SCH (10:49)
[2018-03-25] MEDS: Baclofen 10 MG Tablet PO PRN (11:55)
--- NOTE | 2018-03-25 12:12 | P.DCO ---
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 [] May leave port accessed during therapy. [] May leave peripheral site accessed for duration of therapy. [x] If patient has SOB or respiratory distress, check oxygen saturation. If less than 90% or clinical signs of respiratory distress, administer oxygen at 2 L/min. via nasal cannula and notify physician. [x] Anaphylaxis/Reaction orders: * Stop infusion. * Keep IV line open with saline flush. * Notify physician. * Monitor vital signs every 15 minutes until symptoms resolve. * Check Oxygen saturation; Oxygen at 2 L/min. via nasal cannula if less than 90% or clinical signs of respiratory distress. * Administer diphenhydramine (Benadryl) 25 mg IV STAT, (unless patient has received as pre-med). May repeat once, if necessary. * Solu-Cortef 250 mg IVP over 30-60 seconds, use 100 mg vials for each dissolution. * Epinephrine (1mg/1 ml) 0.3 mg subcutaneously or IVP now with any signs of respiratory distress. * Check with physician for new additional pre-med orders if patient is re- challenged or re-treated. [x] May remove PICC line when treatment complete, after confirming with Physician. [x] If the patient is admitted to the hospital, the ED, or transferred via [facility] , complete transfer form including medication reconciliation order sheet. Weekly Labs: BMP, CBC w/diff Additional Information: Azithromycin 500 mg IV daily. Follow up at the [place] [facility]. - Patient Information Allergies adhesive tape Allergy (Verified 03/03/18 16:11) Rash
[2018-03-25 12:29] VITALS: RESP 18
--- NOTE | 2018-03-25 12:36 | P.DS ---
Date of admission: 03/08/18 17:27 Primary care physician: UNKNOWN Brief History from admission: This is a 37-year-old male who is generally in good health, history of chronic feet pain. Patient presents to the emergency room for abnormal labs. Patient indicates that approximately 2 weeks ago he suffered an injury to his left thigh after he did a "squat and sprint". Because of continued pain, he injected dexamethasone on the left side which he had done before. On 03/02/2018 he started to develop fever and was seen in the emergency room and discharged. He returned back on the with recurrent fevers and at that time had a CT of the femur which showed presumed subacute hemorrhage extending down the entire lateral left thigh along the inner aspect of the tensor fascia paco with additional subcutaneous and edema. Patient was admitted and seen by Dr. Perez who performed I&D of left thigh infected seroma on March 04, 2018. Cultures were obtained and patient was put on antibiotics. He was discharged on Keflex on 03/05/2018, cultures have not shown no growth at that time. Today patient was called by Dr. Mendes and inform that the wound was growing acid- fast organism. Patient presented back to the emergency room. Patient indicates that he has had chills and sweats mainly at night, he has not checked his temperature. He feels that the pain has worsened and has continued to take Percocet. The swelling has not changed much, there is some mild erythema to the top of the thigh which has unchanged. He feels that the leg is more painful especially with standing and feels hot to touch. He has been able to go back to work. Denies any other symptoms, no chest pain, shortness of breath , no diarrhea, no vomiting. Has had some mild nausea. Patient was evaluated in the emergency room, WBC 9.8. CMP unremarkable. Lactic acid 1.5. MRI of the left leg was done showing a large enhancing edematous collection within the vastus lateralis muscle with very impressive surrounding soft tissue edema. There is also an elongated fluid collection deep to the fascia in the peripheral aspect of the mass, presumed abscess. What is unusual or areas of microscopic fat within the collection, can be seen in patients with a resolving hematoma or possibly a hemorrhagic hemangioma. Similar to the recent CT scan. Dr. Peña was contacted, recommended MRI and no antibiotics for now. Dr. Perez also contacted, no plans for surgical intervention at this time. Patient is admitted for further evaluation and treatment. DS: Diagnosis - Discharge Diagnosis (1) Acid fast bacillus Status: Acute (2) Abscess of left thigh Status: Acute DS: Medications - Discharge Medications Prescriptions: azithromycin 500 mg PO DAILY #30 tab oxycodone-acetaminophen 1 tab PO Q8H PRN #15 tab PRN Reason: Acute Pain DS: Summary Hospital Course: 37-year-old male w admitted on 03/08 for left thigh abscess. Approximately two weeks prior he suffered an injury to his left thigh after exercising and subsequently injected dexamethasone on the left side. On 03/02, he started to develop fever and was seen in the ER and discharged. He returned back on 03/03 with recurrent fevers and a CT of the femur showed presumed subacute hemorrhage extending down the entire lateral left thigh along the inner aspect of the tensor fascia paco with additional subcutaneous and edema. Patient was admitted and seen by Dr. Perez who performed I&D of left thigh infected seroma on 03/04. Cultures were initially negative and the patient was discharged on Keflex on 03/05. The culture ended up growing acid fast organisms and the patient was contacted to return to the hospital. In the ED, he was afebrile and his labs were grossly unremarkable including lactic acid. MRI showed a large enhancing edematous collection within the vastus lateralis with impressive surrounding edema and presumed abscess deep to the fascia. Culture from 03/03 growing ultimately Mycobacterium abscessus. Infectious disease co-managed the patient with cefoxitin, Biaxin, and Primaxin while awaiting sensitivities from outside institution. Underwent ultrasound-guided aspiration of the abscess. Repeat ultrasound on 03/13 showed greater than 14 cm long subcutaneous multiloculated fluid collection in the lateral mid thigh. Culture from 03/09 with no growth. No acid-fast bacilli seen on smear. Mycobacterial culture pending. Orthopedic surgery performed repeat irrigation and debridement on 03/16 of left thigh with BENITA drain removal on 03/18. Infectious disease streamlined antibiotics with oral and IV routes to be administered at home. Patient has met maximal benefit from hospitalization is clinically stable for discharge. [employer] Prescription Drug Monitoring Database has been queried and verified prior to prescribing the controlled subsection. Patient is having significant pain caused by left thigh abscess which will last more than 3 days. Trial of alternative treatment options other than prescribed opioids has not helped. I believe that it is medically necessary to treat the patients pain because it is affecting patients ability to return to normal level of functioning. - Time Spent with Patient Total time spent providing and/or coordinating discharge services: Less than 30 minutes - Quality: VTE Deep Vein Thrombosis/Pulmonary Embolism Present on Admission: No Exam Vital signs: Vital Signs 03/24/18 14:00 03/24/18 15:51 03/24/18 16:00 Temperature 97.8 F Pulse Rate 77 Respiratory Rate 18 18 17 Blood Pressure 137/83 Pulse Oximetry 100 03/24/18 18:07 03/24/18 20:00 03/24/18 23:38 Temperature 98.0 F Pulse Rate 83 Respiratory Rate 18 18 20 Blood Pressure 135/70 Pulse Oximetry 97 03/25/18 00:00 03/25/18 02:41 03/25/18 03:41 Temperature 97.8 F Pulse Rate 80 Respiratory Rate 17 20 20 Blood Pressure 117/61 Pulse Oximetry 96 03/25/18 06:34 03/25/18 08:00 03/25/18 12:00 Temperature 91 F L 98.1 F Pulse Rate 66 74 Respiratory Rate 20 16 18 Blood Pressure 120/72 111/66 Pulse Oximetry 97 98 Intake & Output 03/24/18 03/25/18 03/25/18 18:59 06:59 18:59 Intake Total 2150 / 2150 800 / 800 Balance 2150 / 2150 800 / 800 Weight 86.7 kg 88.2 kg 88.2 kg Intake: IV 250 / 250 300 / 300 Primaxin Inj 250 MG In NS Inj 200 / 200 200 / 200 100 ML @ 200 mls/hr IV.SIG Q6H GAYLE Rx#:[id number] Mefoxin Inj 2 GM In D5W Inj 50 50 / 50 100 / 100 ML @ 100 mls/hr IV.SIG Q8H GAYLE Rx#:[id number] Oral 1900 / 1900 500 / 500 Other: # Voids 5 2 Date of Last Bowel Movement 03/19/18 # Bowel Movements 1 Narrative: Left thigh incision and postop dressing Left thigh otherwise appears to be normal in size, normal color Results Procedures completed during hospitalization: 03/10/18: US-guided aspiration of L thigh fluid collection, 40 cc clear fluid sent for analysis 03/16 Repeat irrigation and debridement left thigh Labs on day of discharge: Labs from last 24 hours 03/25/18 05:40 BUN 10 Creatinine 1.12 Estimated GFR 74 L Preliminary micro results at discharge 03/09/18 14:35 Mycobacterial Culture - Preliminary Fluid - Other No growth in 2 weeks - Impressions ITS Impressions Femur MRI 03/08/18 14:00 CONCLUSION: 1. There is a large enhancing edematous collection within the vastus lateralis muscle with very impressive surrounding soft tissue edema. There is also an elongated fluid collection deep to the fascia in the peripheral aspect of the mass, presumed abscess. What is unusual are areas of macroscopic fat within the collection, can be seen in patients with a resolving hematoma or possibly a hemorrhagic hemangioma. Similar to the recent CT scan. Needle Aspiration US 03/09/18 00:00 CONCLUSION: Successful aspiration of a fluid collection from the lateral aspect of the thigh. Soft Tissue Ultrasound 03/13/18 00:00 CONCLUSION: 1. Greater than 14 cm long subcutaneous multiloculated fluid collection with peripheral flow located in the lateral mid thigh. Lower Extremity MRI 03/15/18 00:00 CONCLUSION: 1. Few cellulitis noted throughout the visualized portion of the left lower leg from the knee to the ankle. 2. No evidence of deep soft tissue abscess or marrow edema to suggest osteomyelitis. Discharge Plan - Discharge Disposition Patient Disposition: Disch W/Home Health Service - Discharge Condition Condition: Stable - Discharge Order Discharge Orders: Discharge Order (Routine); Ordered 03/25/18 Ordered By: Ganesh Murphy - Physicians Team Primary Care Provider: UNKNOWN, Attending Provider: Ganesh Murphy Other Providers: Chito Peña MD ; Antonella Perez MD
[2018-03-25 16:00] VITALS: BP 116/69; PULSE 76; TEMP 98.6; O2SAT 91
== END 2018-03-25 17:00 | disposition home health service (06) ==
LOC: NEPE 11:48 → NEDA 17:27 → N07 19:17
PROVIDERS: ADMIT Hospitalist; ATTEND Hospitalist

== ENCOUNTER 2018-05-14 10:22 | Inpatient (IN) ==
[2018-05-14] MEDS ORDERED: Metoprolol Tartrate 25 MG Tablet PO ONE (11:00)
[2018-05-14] MEDS ORDERED: Chlorhexidine Gluconate 2% 1 Pack (2 Cloths) TOPICAL ONE (11:00)
[2018-05-14] MEDS ORDERED: Sodium Chlor 0.9% Inj 500 ML IV.CONT ONE (11:00)
[2018-05-14] MEDS ORDERED: ceFAZolin 2 GM Premix Inj 2 GM/50 ML PIGGYBACK IV.SIG ONE (11:00)
[2018-05-14] MEDS ORDERED: Famotidine PF Inj 20 MG/2 ML Vial ONE (13:03)
[2018-05-14] MEDS ORDERED: fentaNYL Citrate Inj 100 MCG/2 ML Ampul ONE (13:03)
[2018-05-14] MEDS ORDERED: Ketamine Inj 50 MG/5 ML Syringe IV.PUSH ONE (13:14)
[2018-05-14] MEDS ORDERED: Ketorolac Inj 30 MG/ML (IVP) Vial IV.PUSH ONE (13:14)
[2018-05-14] MEDS ORDERED: Post-op Orders (for Pharmacy) OTHER STA (14:33)
--- NOTE | 2018-05-14 14:33 | P.BOP ---
Date of procedure: 05/14/18 Procedure: 1. Irrigation and debridement left thigh 2. Placement of antibiotic beads with imipenem powder 3. Placement incisional vac Implants: Stimulan antibiotic beads Anesthesia: GETA Surgeon: Antonella Perez MD Estimated blood loss (mL): 100 Pathology: none sent Condition: stable Disposition: PACU (Incisional vac to remain in place until Thursday morning)
[2018-05-14] MEDS ORDERED: Morphine Sulfate Inj 2 MG/ML Vial IV.PUSH PRN (14:39)
[2018-05-14] MEDS ORDERED: *Meperidine Inj 25 MG/ML Vial PERIprocedural Use ONLY ONE (15:02)
[2018-05-14] MEDS ORDERED: *HYDROmorphone PF Inj 1 MG/ML Ampul PERIprocedural Use ONLY ONE ×2 (15:13→15:31)
--- NOTE | 2018-05-14 16:03 | P.PNOP ---
Subjective Interval history: POD#0 s/p repeat I&D L thigh, placement antibiotic beads, application of incisional vac Physical Exam Vital signs: Vital Signs 05/14/18 11:00 05/14/18 15:03 05/14/18 15:15 Temperature 97.8 F 97.7 F Pulse Rate 61 78 72 Respiratory Rate 16 13 13 Blood Pressure 129/83 141/84 H 143/94 H Pulse Oximetry 100 100 100 05/14/18 15:30 05/14/18 15:40 05/14/18 15:45 Temperature 97.7 F Pulse Rate 75 76 Respiratory Rate 8 L 12 21 Blood Pressure 132/75 129/69 Pulse Oximetry 98 99 Intake & Output 05/13/18 05/14/18 05/14/18 18:59 06:59 18:59 Intake Total 1000 / 1000 Output Total 1000 / 1000 Balance 0 / 0 Weight 85.9 kg Intake: Anesthesia Amount 1000 / 1000 Output: Estimated Blood Loss 1000 / 1000 Other: Weight On Admission 85.9 kg Assessment and Plan - Assessment and Plan 38yo M POD#0 s/p repeat I&D L thigh, antibiotic bead placement, and incisional vac 1. WBAT and ROM as tolerated LLE 2. Incisional vac to 75mmHg continuous. To remain in place until Thursday morning. 3. Pain control 4. Continue tigecycline, imipenem, and azithromycin for previous +mycobacterium abscessus. ID consult to ensure appropriate dosing regimen. Patient on these medications as outpatient. 5. Likely plan for discharge Thursday after incisional vac removed.
[2018-05-14] MEDS: oxyCODONE/Acetaminophen 10/325 Tablet PO PRN ×2 (16:39→21:07)
--- NOTE | 2018-05-14 16:40 | MB ---
cc: Chito Peña MD DATE: 05/14/2018 REQUESTING PHYSICIAN: Antonella Perez MD. 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 HISTORY OF PRESENT ILLNESS: The patient is a 38-year-old white male who is known to me from prior hospitalization. 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 He had deep wound and he underwent irrigation and debridement. The cultures came back showing Mycobacterium abscessus. He was discharged on antibiotics and he was being followed by the [place] infectious disease department. He was managed with antibiotics including Primaxin, tigecycline, and azithromycin. He was on cefoxitin at one time, his white count was markedly decreased and cefoxitin was discontinued. The patient notes that the area of incision at the left thigh opened up to about a size of a quarter and it was draining. He was brought into the hospital by orthopedic surgery for further debridement of the wound, which was performed today. Antibiotic beads with imipenem powder were placed into the wound and a vacuum was left in place. The plans are to remove the vacuum possibly in a couple of days. The patient noted that he was having more pain prior to the procedure and he was having problems with mobility of the left leg. He denies fevers, chills, or other symptoms. He is afebrile. PAST MEDICAL HISTORY: Vocal cord polypectomy. ALLERGIES: ADHESIVE TAPE. MEDICATIONS: 1. Azithromycin p.o. 2. Imipenem. 3. Tigecycline. 4. Toradol. 5. Percocet 10 p.r.n. SOCIAL HISTORY: The patient is . No tobacco. No illicit drugs. No alcohol. FAMILY HISTORY: Noncontributory. REVIEW OF SYSTEMS: Significant for pain in the left thigh. Otherwise, negative on all systems reviewed. PHYSICAL EXAMINATION: GENERAL: This is a well-developed male in no acute distress. He is awake and alert and oriented. VITAL SIGNS: Temperature 97.7, BP 142/75, respirations 16, heart rate 75. HEENT: Head is atraumatic. Extraocular movements grossly intact. Pupils reactive to light. No icterus. Oropharynx: No lesions. Moist mucosa. NECK: Supple without adenopathy. LUNGS: Clear to auscultation. HEART: Regular S1, S2, without murmurs, rubs, or gallops. ABDOMEN: Bowel sounds present. Soft, nontender. RECTAL: Not performed. EXTREMITIES: Left thigh is swollen. Wound VAC is in place. No erythema visible. SKIN: No diffuse rash. NEUROLOGIC: Nonfocal. PSYCHIATRIC: The patient is calm and pleasant and cooperative. LABORATORY: Not yet available. 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 The patient had an abscess of the left thigh, which has been drained and he has had a couple debridements prior. At one point, he also had cellulitis at the left lower leg from the knee to the ankle, which improved. He no longer has evidence of cellulitis. The Mycobacterium was sensitive to tetracycline and azithromycin and intermediate to imipenem. RECOMMENDATIONS: 1. Continue tigecycline. 2. Continue the imipenem. 3. Continue the azithromycin. 4. Monitor clinical response. The plan will be to continue treatment with these antibiotics until there is satisfactory response to treatment. Thank you for this consultation. The patient's progress will be monitored. When he is discharged from the hospital, he will continue to be followed by infectious disease department at the [facility]. Thank you for this consultation. MD JARAD Wellington/marni , 03:48 PM , 04:01 PM [place]
[2018-05-14] MEDS: HYDROmorphone PF Inj 0.5 MG/0.5 ML Syringe IV.PUSH PRN ×2 (17:32→22:15)
[2018-05-14] MEDS: Ketorolac Inj 30 MG/ML (IVP) Vial IV.PUSH SCH (21:06)
[2018-05-14] MEDS: Senna/Docusate Sodium 8.6/50 MG Tablet PO SCH (21:07)
[2018-05-15] MEDS: oxyCODONE/Acetaminophen 10/325 Tablet PO PRN ×6 (00:59→23:10)
[2018-05-15] MEDS: HYDROmorphone PF Inj 0.5 MG/0.5 ML Syringe IV.PUSH PRN ×5 (03:44→21:27)
[2018-05-15] MEDS: Ketorolac Inj 30 MG/ML (IVP) Vial IV.PUSH SCH ×3 (05:51→21:27)
[2018-05-15] MEDS: Azithromycin 250 MG Tablet PO SCH (08:38)
[2018-05-15] MEDS: Pantoprazole Sodium 20 MG DR Tablet PO SCH (08:38)
[2018-05-15] MEDS: Multivitamin/Minerals Therapeutic Tablet PO SCH (08:38)
[2018-05-15] MEDS: Senna/Docusate Sodium 8.6/50 MG Tablet PO SCH ×2 (08:38→21:28)
[2018-05-15] MEDS ORDERED: TIGECYCLINE 50 MG IV.SIG SCH (09:00)
[2018-05-16] MEDS: HYDROmorphone PF Inj 0.5 MG/0.5 ML Syringe IV.PUSH PRN ×6 (02:24→23:49)
[2018-05-16] MEDS: oxyCODONE/Acetaminophen 10/325 Tablet PO PRN ×5 (03:39→21:21)
[2018-05-16] MEDS: Ketorolac Inj 30 MG/ML (IVP) Vial IV.PUSH SCH ×2 (06:17→13:48)
[2018-05-16 06:44] LABS: Baso % (Auto) 0.6 % (0.0-2.0); Eos # (Auto) 0.2 th/mm3 (0.0-0.4); Eos % (Auto) 2.1 % (0.0-4.0); Hematocrit 40.2 % (39.0-51.0); Hemoglobin 13.7 gm/dL (13.0-17.0); Mean Corpuscular HGB Conc 34.2 % (32.0-36.0); Mean Corpuscular Volume 90.8 fL (80.0-100.0); Mean Platelet Volume 8.4 fL (7.0-11.0); Mono # (Auto) 0.9 th/mm3 (0.0-0.9); Mono % (Auto) 11.1 % (0.0-8.0); Neut # (Auto) 5.1 th/mm3 (1.8-7.7); Neut % (Auto) 62.2 % (16.0-70.0); Platelet Count 193 th/mm3 (150-450); Red Blood Count 4.43 mil/mm3 (4.50-5.90); Red Cell Distribution Width 13.6 % (11.6-17.2); White Blood Count 8.2 th/mm3 (4.0-11.0)
[2018-05-16] MEDS: Azithromycin 250 MG Tablet PO SCH (08:03)
[2018-05-16] MEDS: Multivitamin/Minerals Therapeutic Tablet PO SCH (08:03)
[2018-05-16] MEDS: Senna/Docusate Sodium 8.6/50 MG Tablet PO SCH ×2 (08:03→20:29)
[2018-05-16] MEDS: Pantoprazole Sodium 20 MG DR Tablet PO SCH (08:03)
[2018-05-16 08:31] VITALS: RESP 18
[2018-05-17] MEDS: oxyCODONE/Acetaminophen 10/325 Tablet PO PRN ×2 (01:49→05:38)
[2018-05-17] MEDS: HYDROmorphone PF Inj 0.5 MG/0.5 ML Syringe IV.PUSH PRN ×2 (04:09→08:30)
--- NOTE | 2018-05-17 07:24 | P.PNOP ---
Subjective Interval history: Patient resting comfortably. Physical Exam Vital signs: Vital Signs 05/16/18 08:00 05/16/18 08:35 05/16/18 11:05 Temperature 98.1 F Pulse Rate 67 Respiratory Rate 18 18 18 Blood Pressure 123/80 Pulse Oximetry 96 05/16/18 12:00 05/16/18 13:20 05/16/18 14:20 Temperature 97.9 F Pulse Rate 66 Respiratory Rate 18 18 18 Blood Pressure 136/80 Pulse Oximetry 98 05/16/18 15:10 05/16/18 16:00 05/16/18 17:55 Temperature 97.8 F Pulse Rate 55 L Respiratory Rate 18 18 18 Blood Pressure 128/83 Pulse Oximetry 98 05/16/18 20:00 05/17/18 00:00 Temperature 97.9 F 97.7 F Pulse Rate 70 80 Respiratory Rate 18 18 Blood Pressure 129/77 139/80 Pulse Oximetry 98 97 Intake & Output 05/16/18 05/17/18 05/17/18 18:59 06:59 18:59 Intake Total 1800 / 1800 200 / 200 Output Total 0 / 0 Balance 1800 / 1800 200 / 200 Weight 91.1 kg Intake: IV 300 / 300 200 / 200 Primaxin Inj 500 MG In NS Inj 200 / 200 200 / 200 100 ML @ 200 mls/hr IV.SIG Q6H GAY[facility] Rx#:[id number] Tygacil Inj 50 MG In NS Inj 100 100 / 100 ML @ 200 mls/hr IV.SIG DAILY G[facility] Rx#:[id number] Oral 1500 / 1500 Output: Wound Vac Amount 0 / 0 Left Thigh 0 / 0 Other: Mode Setting Left Thigh Continuous Continuous # Voids 4 2 Date of Last Bowel Movement 05/16/18 # Bowel Movements 2 1 Narrative: Awake, alert, no acute distress Left lower extremity: Incisional VAC in place with good seal. Incisional VAC was removed at the bedside incision appears intact with minimal drainage. No gross signs of active infection. Negative Homans. Brisk cap refill. Results - Labs CBC & Chem 7: 05/16/18 06:30 Assessment and Plan - Assessment and Plan 38yo M POD#3 s/p repeat I&D L thigh, antibiotic bead placement, and incisional vac 1. WBAT and ROM as tolerated LLE 2. Incisional vac removed at bedside. Dressing placed with Xeroform, 4 x 4's, and Dexter 3. Pain control 4. Continue tigecycline, imipenem, and azithromycin for previous +mycobacterium abscessus. ID consult to ensure appropriate dosing regimen. Patient on these medications as outpatient. 5. Discharge home today. Patient will follow-up in my office in 2 weeks.
[2018-05-17] MEDS: Multivitamin/Minerals Therapeutic Tablet PO SCH (08:30)
[2018-05-17] MEDS: Azithromycin 250 MG Tablet PO SCH (08:30)
[2018-05-17] MEDS: Senna/Docusate Sodium 8.6/50 MG Tablet PO SCH (08:30)
[2018-05-17] MEDS: Pantoprazole Sodium 20 MG DR Tablet PO SCH (08:31)
[2018-05-17 10:35] VITALS: BP 131/84; PULSE 84; TEMP 98; O2SAT 100
--- NOTE | 2018-05-26 08:18 | P.OP ---
Date of procedure: 05/14/18 Procedure: 1. Irrigation and debridement left thigh, skin, subcutaneous tissue, fascia, and muscle 2. Placement of antibiotic beads with imipenem powder 3. Placement incisional vac Implants: Stimulan antibiotics beads Anesthesia: VIKTORA Surgeon: Antonella Perez MD Estimated blood loss (mL): 100 Operation and Findings: Indications for procedure: 37-year-old gentleman with small left thigh muscle injury which he self-treated with steroid injection IM. Subsequently, patient developed left thigh abscess and underwent irrigation and debridement of his left thigh infected abscess. Intraoperative cultures revealed acid-fast bacteria and patient was referred back to the hospital for infectious disease workup and repeat I&D of his left thigh. Patient has been kept on outpatient antibiotics per infectious disease for his Mycobacterium abscessus. However, patient has noticed increasing wound dehiscence with mild drainage. Options of management were discussed with the patient including continued conservative care with observation, wound management and IV antibiotics. In addition, surgical intervention in the form of irrigation debridement with placement of incisional VAC versus wound VAC were discussed. At this time, patient is interested in pursuing surgical intervention the form of irrigation and debridement with incisional VAC application and possible placement of antibiotic beads. Description of procedure: Patient was brought back to the operating room placed supine on the operating room table with all bony processes well padded. General anesthesia then ensued. A timeout was performed to verify the correct patient, site, side and procedure to be performed. Preoperative antibiotics given in the form of his standing scheduled 3 antibiotics. The previous lateral thigh incision was reopened. The previous scar was ellipsed out to provide healthy bleeding skin and subcutaneous tissue for closure. The IT band was then incised in a longitudinal fashion in its previous opening. At this time , there is not any significant retained fluid. There was yellowwhite colored infected tissue which was curretted and rongeured out of the wound. The skin, subcutaneous tissue, fascia and muscle was then debrided thoroughly with currettes, rongeurs, and scalpel. This was irrigated with over 6 L of normal saline laden with antibiotics. The tissue at this time appeared healthy without any clear signs of infection. All muscle appeared viable. There was no gross purulence identified or signs of hematoma. On the back table, antibiotic beads were made with imipenem powder added to the Stimulan beads. The beads were allowed to fully cure on the back table and then placed into the wound deep. The IT band closed with running PDS suture. The subcutaneous tissue was then closed with PDS sutures and the skin closed with nylon. An incisional VAC was fashioned and placed over Xeroform over the incision. This was placed to continuous low suction. Patient was awoken from general anesthesia without complication. Disposition: Patient can be weightbearing as tolerated and range of motion as tolerated to the left lower extremity. Patient will continue antibiotics per ID. No plan for further orthopedic surgery.
== END 2018-05-17 10:55 | disposition home or self-care (01) ==
LOC: HSDC 10:22 → HSDI 14:43 → N07 16:01
PROVIDERS: ADMIT Orthopaedic Surgery Orthopaedic Surgery of the Spine; ATTEND Orthopaedic Surgery Orthopaedic Surgery of the Spine